=== PATIENT | male | born 1940 | race Caucasian/White ===

== ENCOUNTER → 2016-12-31 | Outpatient (CLI) | payer MEDICARE, BC ==
[2015-09-02 20:45] VITALS: BP 128/58
--- NOTE | 2016-12-31 09:56 | RAD ---
Right neck ultrasound, 12/31/2016: History: Right lump The area of clinical concern in the region of the angle of the mandible on the right was carefully scanned. A structure which appears to represent the right parotid gland is evident at this level. It measures 5.4 x 4.5 x 1.5 cm compared to measurements of 4.2 x 2.5 x 1.6 cm on the left. Its echo pattern is mildly heterogeneous with increased vascularity compared to the left side. No discrete parotid mass is identified. There are several small lymph nodes in this region which are not enlarged. IMPRESSION: Mildly enlarged, mildly heterogeneous right parotid gland demonstrating increased vascularity compared to the left. An inflammatory process is likely. Clinical surveillance is suggested and if clinical concern persists, CT scanning is suggested for further evaluation.
== END | disposition home or self-care (01) ==
LOC: US 08:04
PROVIDERS: ATTEND Physician Assistant Medical
DX: K11.1 Hypertrophy of salivary gland (principal); M27.9 Disease of jaws, unspecified
CPT/HCPCS: 76536

== ENCOUNTER → 2017-01-20 | Outpatient (CLI) | payer MEDICARE, BC ==
[2015-09-02 20:45] VITALS: BP 128/58
[~2017-01-20] MED LIST: IOHEXOL 300 MG/ML 75 ML VIAL. IV ONE
--- NOTE | 2017-01-20 10:17 | RAD ---
Examination: CT soft tissue neck with IV contrast History: History of enlarged right parotid with intermittent swelling Comparison: None available Technique: Axial CT images of the soft tissue neck were performed with IV contrast. Coronal and sagittal reformats are performed. PQRS Compliance Statement: One or more of the following individualized dose reduction techniques were utilized for this examination: 1. Automated exposure control 2. Adjustment of the mA and/or kV according to patient size 3. Use of iterative reconstruction technique. Findings: The visualized intracranial portion grossly appears unremarkable. The bilateral general activities therapist spaces, parapharyngeal spaces, grossly appears unremarkable. Moderate atherosclerotic calcifications identified in the bilateral carotid bulbs and proximal internal carotid arteries. No evidence of obvious parotid mass identified. The right parotid gland is somewhat mildly prominent compared to the left with mildly increased density throughout the right parotid gland could be in part due to streak dental artifact. No evidence of inflammatory fat stranding about the right parotid gland. No radiologically significant enlarged cervical lymphadenopathy visualized. The visualized thyroid gland appears homogenous. The visualized vocal cords, vallecula, left piriform sinus grossly appears unremarkable. There is mild asymmetry of the right piriform sinus. The apical lungs are clear. Moderate degenerative changes cervical spine. The mastoid air cells are clear. Impression: 1. The right parotid gland is somewhat mildly prominent compared to the left with mildly increased density throughout the right parotid gland could be in part due to streak dental artifact. No evidence of inflammatory fat stranding about the right parotid gland or mass identified in the right parotid gland. 2. Mild asymmetry of the right deforms sinus, nonspecific.
== END | disposition home or self-care (01) ==
LOC: CT 08:02
PROVIDERS: ATTEND Physician Assistant Medical
DX: K11.1 Hypertrophy of salivary gland (principal); I70.0 Atherosclerosis of aorta
CPT/HCPCS: 70491; Q9967

== ENCOUNTER → 2017-06-03 | Outpatient (CLI) | payer MEDICARE, BC ==
[2015-09-02 20:45] VITALS: BP 128/58
--- NOTE | 2017-06-03 11:52 | CARD ---
MR#: [id number] Date of Study: 06/03/2017 Ordering Physician: KACY MNACILLA, Referring Physician: KACY MANCILLA Tech: Liliya Aguirre RDCS APPROVED REPORT EXAM: Two-dimensional and M-mode echocardiogram with Doppler and color Doppler. Other Information Quality : Good INDICATION Cardiac Disease: CAD Surgery/Intervention CABD DIMENSIONS Left Atrium(2D)4.1 (1.6-4.0cm)IVSd1.0 (0.7-1.1cm) Aortic Root(2D)3.5 (2.0-3.7cm)LVDd4.7 (3.9-5.9cm) LVOT Diameter2.3 (1.8-2.4cm)PWd1.0 (0.7-1.1cm) LVDs3.4 (2.5-4.0cm)FS (%) 27.6 % SV54.4 mlLVEF(%)53.5 (>50%) Aortic Valve AoV Peak Santiago.108.9cm/sAoV VTI18.9cm AO Peak GR.4.7mmHgLVOT Peak Santiago.88.8cm/s LVOT VTI 16.35cmAO Mean GR.3mmHg ERLIN (VMAX)3.32dr4NSD (VTI)3.60cm2 Mitral Valve MV E Rxyqfpue75.4cm/sMV DECEL UOEI147bw MV A Qulxzjre798.9cm/sE/A Ratio0.6 Tricuspid Valve TR P. Awfxcynd670ag/sRAP RCFTQVAR6jfQw TR Peak Gr.91tcVkCWOA39xkVt Pulmonary Vein S1 Qieuujjj41.8cm/sD2 Yqymqyuz45.3cm/s LEFT VENTRICLE The left ventricle is normal size. There is normal left ventricular wall thickness. Left ventricle sy stolic function is normal. The Ejection Fraction is 50-55%. There is normal LV segmental wall motion. Transmitral Doppler flow pattern is Grade I-abnormal relaxation pattern. RIGHT VENTRICLE The right ventricle is normal size. The right ventricular systolic function is normal. ATRIA The left atrium is mildly dilated. The right atrium size is normal. The interatrial septum is intact with no evidence for an atrial septal defect or patent foramen ovale as noted on 2-D or Doppler imagi ng. AORTIC VALVE The aortic valve is calcified but opens well. Doppler and Color Flow revealed trace aortic regurgitat ion. There is no significant aortic valvular stenosis. MITRAL VALVE The mitral valve is calcified but opens well. There is no evidence of mitral valve prolapse. There is no mitral valve stenosis. Doppler and Color-flow revealed trace mitral regurgitation. TRICUSPID VALVE The tricuspid valve is normal in structure and function. Doppler and Color Flow revealed trace tricus pid regurgitation. The PA pressure was estimated at 26 mmHg. There is no tricuspid valve stenosis. PULMONIC VALVE The pulmonary valve is normal in structure and function. Doppler and Color Flow revealed trace to mil d pulmonic valvular regurgitation. There is no pulmonic valvular stenosis. GREAT VESSELS The aortic root is normal in size. The ascending aorta is normal in size. The IVC is normal in size a nd collapses >50% with inspiration. PERICARDIAL EFFUSION There is no evidence of significant pericardial effusion. Critical Notification Critical Value: No <Conclusion> Left ventricle systolic function is normal. The Ejection Fraction is 50-55%. There is normal LV segmental wall motion. Transmitral Doppler flow pattern is Grade I-abnormal relaxation pattern. Trace mitral regurgitation. Trace tricuspid regurgitation. The PA pressure was estimated at 26 mmHg. There is no evidence of significant pericardial effusion. Signed by : Kacy Mancilla, Electronically Approved : 06/03/2017 11:52:38
--- NOTE | 2017-06-03 15:56 | RAD ---
MR#: [id number] Date of Study: 06/03/2017 Ordering Physician: KACY MANCILLA, Referring Physician: KACY MANCILLA, Tech: Ladonna Grey RDMS, RVT, RTR APPROVED REPORT Patient Location : OUT-PATIENT Indications Varicose Veins Grayscale images of the bilateral saphenofemoral junctions and the greater and lesser saphenous veins do not reveal any evidence of thrombus on limited imaging. Spectral waveforms and color Doppler do not reveal any significant evidence of reflux in the right an d left great saphenous veins. The bilateral lesser saphenous veins do not show any evidence of reflux . The proximal left great saphenous vein is previously been harvested for bypass surgery. Critical Notification Critical Value: No <Conclusion> 1. Negative for reflux in the bilateral GSV and LSV Signed by : Thong Gray, Electronically Approved : 06/03/2017 15:56:03
== END | disposition home or self-care (01) ==
LOC: ECHO 08:02
PROVIDERS: ATTEND Internal Medicine Cardiovascular Disease
DX: I25.10 Atherosclerotic heart disease of native coronary artery without angina pectoris (principal); I83.93 Asymptomatic varicose veins of bilateral lower extremities; I08.1 Rheumatic disorders of both mitral and tricuspid valves; Z87.891 Personal history of nicotine dependence
CPT/HCPCS: 93306; 93970

== ENCOUNTER → 2017-06-20 | Outpatient (CLI) | payer MEDICARE, BC ==
[2015-09-02 20:45] VITALS: BP 128/58
--- NOTE | 2017-06-21 22:24 | RAD ---
MR#: [id number] Date of Study: 06/20/2017 Ordering Physician: KACY MANCILLA, Referring Physician: KACY MANCILLA, Tech: Judy Badillo RDMS, KAET, RTR APPROVED REPORT Patient Location: OUT-PATIENT Indications Claudication: Bilateral Leg pain. Left Calf pain per patient upon walking. Risk Factors Grayscale images of the bilateral common femoral, superficial femoral and popliteal vessels reveals m ild to moderate athero-'s chronic plaque without any focal high-grade stenosis. Spectral waveforms th roughout the arterial tree of the lower extremities are mostly biphasic and triphasic. No focal steno sis is identified. There is three-vessel runoff in the bilateral lower extremities. VELOCITY AND DOPPLER WAVEFORM ANALYSIS RIGHT cm/secWaveformSeverity LEFT cm/secWaveform Severity pCFA 113.8pCFA 104.1 Prof Fem Art. 86.8Prof Fem Art. 61.7 Fem Art Prox. 68.1Fem Art Prox. 77.8 Fem Art Mid. 85.5Fem Art Mid. 77.8 Fem Art Dist. 112.8Fem Art Dist. 65.6 Pop Art(AK) 61.1Pop Art(AK) 96.2 SUBMARINE OPERATOR Dist. 75.2PTA Dist. 73.7 Per Art Prox. 70.1Per Art Prox. 69.4 SHUN Prox. 63.0ATA Prox. 68.7 DPA 92.5DPA 55 Critical Notification Critical Value: No <Conclusion> 1. No evidence of focal disease in the bilateral lower extremities with widely patent 3 vessel runoff below the knee. Signed by : Thong Gray, Electronically Approved : 06/21/2017 22:23:57
== END | disposition home or self-care (01) ==
LOC: US 08:54
PROVIDERS: ATTEND Internal Medicine Cardiovascular Disease
DX: I73.9 Peripheral vascular disease, unspecified (principal); M79.605 Pain in left leg; M79.604 Pain in right leg
CPT/HCPCS: 93925

== ENCOUNTER → 2017-10-02 | Outpatient (CLI) | payer MEDICARE, BC ==
[2015-09-02 20:45] VITALS: BP 128/58
[~2017-10-02] MED LIST changes: +IOHEXOL 240 MG/ML 50ML VIAL. ONE
[2017-10-02 10:56] LABS: CREATININE 1.1 mg/dL (0.7-1.3); GFR 64.7
--- NOTE | 2017-10-02 17:11 | RAD ---
Examination: CT of the abdomen pelvis with oral and IV contrast HISTORY: History of left-sided abdominal pain COMPARISON: None available TECHNIQUE: Axial CT images of the abdomen is performed with oral and IV contrast. Coronal and sagittal reformats are performed Exposure: One or more of the following individualized dose reduction techniques were utilized for this examination: 1. Automated exposure control 2. Adjustment of the mA and/or kV according to patient size 3. Use of iterative reconstruction technique FINDINGS: Mild bibasilar lung atelectasis. No evidence of free air identified in the abdomen There is mild decreased attenuation noted in the liver. The gallbladder is mildly distended The visualized spleen, adrenals grossly appears unremarkable The pancreas is atrophic with multiple calcifications identified particularly in the pancreatic head and in the pancreatic body. The pancreatic duct is dilated measuring up to 7 mm in diameter The small bowel is nondilated. Moderate amount of feces identified in the colon throughout. Urinary bladder is mildly distended The bilateral kidneys enhance symmetrically. Multiple cystic structures identified in the right and left kidneys with the largest measuring 4.5 cm in the right kidney and measuring 8 Hounsfield units likely cysts. Moderate degenerative changes lumbar spine. IMPRESSION: 1. Atrophic appearing pancreas with multiple calcifications and dilated appearing pancreatic duct could be chronic pancreatitis or pancreatic ductal pathology. There is appears similar to prior exam however comparison is difficult as the prior exam was without contrast. If this was not evaluated prior MRI abdomen with MRCP would be useful for further evaluation. 2. Bilateral renal cysts. 3. Mild hepatic steatosis. 4. Moderate amount of stool identified in the colon likely constipation.. Electronically signed by: Clarence Arroyo MD (10/02/2017 5:08 PM) [id number]
== END | disposition home or self-care (01) ==
LOC: CT 09:52
PROVIDERS: ATTEND Internal Medicine Gastroenterology
DX: N28.1 Cyst of kidney, acquired (principal); K76.0 Fatty (change of) liver, not elsewhere classified; I25.10 Atherosclerotic heart disease of native coronary artery without angina pectoris; E11.9 Type 2 diabetes mellitus without complications; I10 Essential (primary) hypertension; Z87.891 Personal history of nicotine dependence
CPT/HCPCS: 36415; 74177; 82565; 84520; Q9966; Q9967

== ENCOUNTER 2018-03-06 12:46 | Emergency (ER) | payer MEDICARE, BC ==
[~2018-03-06] VITALS: Ht 177.8 cm; Wt 69.3 kg
--- NOTE | 2018-03-06 13:11 | PHYS DOC ---
Past History Past Medical History: CAD, CHF, Diabetes, Other Past Surgical History: Coronary Bypass Surgery, Other Smoking: Non-smoker Alcohol Use: None Drug Use: None Adult General Chief Complaint Chief Complaint: MECHANICAL FALL HPI HPI Patient is a 77 year old male who presents with complaining of a fall and pain in right hip area. Patient states he had an accidental fall and over ago while walking stairs and missed one step and landed on right hip. Patient denies loss of consciousness and other injuries. Patient states he used his 's walker to get to the car and come to the hospital. Patient states he has severe pain in right hip area with bearing weight and mild pain without bearing weight. Patient complaining of mild headache that started at his arrival to emergency room. Patient denies focal neuro deficit, nausea and vomiting, chest pain and shortness of breath. Review of Systems Review of Systems Constitutional: Denies fever or chills [] Eyes: Denies change in visual acuity, redness, or eye pain [] HENT: Denies nasal congestion or sore throat [] Respiratory: Denies cough or shortness of breath [] Cardiovascular: No additional information not addressed in HPI [] GI: Denies abdominal pain, nausea, vomiting, bloody stools or diarrhea [] : Denies dysuria or hematuria [] Musculoskeletal: Denies back pain, reports joint pain [] Integument: Denies rash or skin lesions [] Neurologic: Reports headache, denies focal weakness or sensory changes [] Endocrine: Denies polyuria or polydipsia [] All other systems were reviewed and found to be within normal limits, except as documented in this note. Current Medications Current Medications Current Medications Medications (Trade) Dose Ordered Sig/Rolo Start Time Stop Time Status Last Admin Dose Admin Fentanyl Citrate (Fentanyl 2ml Vial) 50 mcg 1X ONCE 03/06/18 13:00 03/06/18 13:01 UNV Allergies Allergies Allergies Coded Allergies Type Severity Reaction Last Updated Verified No Known Drug Allergies 05/10/15 No Physical Exam Physical Exam Constitutional: Well developed, well nourished, mild distress, non-toxic appearance. [] HENT: Normocephalic, atraumatic, oropharynx moist, no oral exudates, nose normal. [] Eyes: PERRLA, EOMI, conjunctiva normal, no discharge. [] Neck: Normal range of motion, no tenderness, supple, no stridor. [] Cardiovascular:Heart rate regular rhythm, no murmur [] Lungs & Thorax: Bilateral breath sounds clear to auscultation [] Abdomen: Bowel sounds normal, soft, no tenderness, no masses, no pulsatile masses. [] Skin: Warm, dry, no erythema, no rash. [] Back: No tenderness, no CVA tenderness. [] Extremities: Right hip with limited range of motion and contusion of lateral side of hip, no cyanosis, no clubbing, no edema. [] Neurologic: Alert and oriented X 3, normal motor function, normal sensory function, no focal deficits noted. [] Psychologic: Affect normal, judgement normal, mood normal. [] Current Patient Data Vital Signs Vital Signs Date Time Temp Pulse Resp B/P (MAP) Pulse Ox O2 Delivery O2 Flow Rate FiO2 03/06/18 12:46 98.0 92 16 96 Room Air EKG EKG [] Radiology/Procedures Radiology/[place] [address] IMAGING REPORT Signed PATIENT: OSMANI CROW ACCOUNT: [id number] : 1940 LOCATION: ER AGE: 77 SEX: M EXAM STATUS: REG ER ORD. PHYSICIAN: DORA BARRON MD REASON: FALL PROCEDURE: CHEST AP ONLY Pelvis with right hip, 3 views, 03/06/2018: HISTORY: Fall There appears to be an impacted subcapital fracture of the right femoral neck, best seen on the lateral view. There are mild degenerative changes at both hip joints. No other fracture or dislocation is identified. Extensive arterial calcifications are present. IMPRESSION: Impacted subcapital fracture of the right femoral neck. CT scanning would better define this fracture, if clinically indicated. AP chest, 03/06/2018: HISTORY: Fall There has been a previous median sternotomy. The heart size is normal. There is calcific plaquing of the aorta. No pulmonary infiltrate is seen. There is no evidence of pleural fluid or pneumothorax. IMPRESSION: No acute cardiopulmonary abnormality is detected. Electronically signed by: Miles Casillas MD (03/06/2018 1:48 PM) [facility] DICTATED AND SIGNED BY: MILES CASILLAS MD DATE: 03/06/18 1343 CC: DORA BARRON MD; DENYS THRASHER MD ~ [place] [address] IMAGING REPORT Signed PATIENT: OSMANI CROW ACCOUNT: [id number] : 1940 LOCATION: ER AGE: 77 SEX: M EXAM STATUS: REG ER ORD. PHYSICIAN: DORA BARRON MD REASON: fall PROCEDURE: CT HEAD AND CERVICAL SPINE WO CT head and cervical spine without contrast 03/06/2018 CLINICAL INDICATION: Fall COMPARISON: None. TECHNIQUE: Multiple CT images of the head and cervical spine were obtained without contrast. *One or more of the following individualized dose reduction techniques were utilized for this examination: 1. Automated exposure control. 2. Adjustment of the mA and/or kV according to patient size. 3. Use of iterative reconstruction technique. FINDINGS: Head: No acute intracranial hemorrhage or extra-axial fluid collection. No midline shift. The ventricles and subarachnoid spaces are normal in size configuration for age. No midline shift. The basal cisterns are patent. Minimal periventricular white matter low-attenuation. The visualized mastoid air cells and paranasal sinuses are well aerated. Cervical spine: No acute cervical spine fracture or traumatic malalignment. Atlantoaxial articulation is maintained. Mild atlantodens are osteoarthrosis. Mild cervical disc degeneration at C3-C4 and C5-C6 with disc space narrowing and marginal osteophyte formation. Cervical spondylosis and multilevel uncovertebral and facet hypertrophy results in neural foraminal narrowing to a mild degree bilaterally at C3-C4, moderate on the right at C4-C5, moderate on the right and severe on the left at C5-C6. Posterior disc osteophyte complex at C5-C6 results in mild spinal canal neuroforaminal narrowing. IMPRESSION: Head: 1. No acute intracranial hemorrhage. 2. Minimal nonspecific white matter disease, likely related to chronic small vessel ischemic disease. Cervical spine: 1. No acute cervical spine fracture or traumatic malalignment. 2. Cervical spondylosis resulting in multilevel neural foraminal narrowing, greatest to severe degree, on the left at C5-C6. Electronically signed by: Iglesia Lynn MD (03/06/2018 1:28 PM) [id number] DICTATED AND SIGNED BY: IGLESIA LYNN MD DATE: 03/06/18 1322 CC: DORA BARRON MD; DENYS THRASHER MD ~ Course & Med Decision Making Course & Med Decision Making Pertinent Labs and Imaging studies reviewed. (See chart for details) Evaluation of patient in ER showed 77-year-old male patient with a fall at home and injury to right hip. Patient had limited range of motion of right hip with subcapital femoral neck fracture in x-ray. Dr. Michelle warehouse operations manager orthopedic physician was informed in OR and Dr. Momin accepted transfer to [facility] at 1339. Dragon Disclaimer Dragon Disclaimer This electronic medical record was generated, in whole or in part, using a voice recognition dictation system. Departure Departure: Impression: Primary Impression: Closed subcapital fracture of neck of right femur Additional Impressions: Uncontrolled diabetes mellitus Fall at home Disposition: 02 XFER SHT-TRM HOSP ([facility]@[email or web address]) Condition: IMPROVED Referrals: DENYS THRASHER MD (PCP) Problem Qualifiers DORA BARRON MD Mar 06, 2018 13:11
--- NOTE | 2018-03-06 13:30 | RAD ---
CT head and cervical spine without contrast 03/06/2018 CLINICAL INDICATION: Fall COMPARISON: None. TECHNIQUE: Multiple CT images of the head and cervical spine were obtained without contrast. *One or more of the following individualized dose reduction techniques were utilized for this examination: 1. Automated exposure control. 2. Adjustment of the mA and/or kV according to patient size. 3. Use of iterative reconstruction technique. FINDINGS: Head: No acute intracranial hemorrhage or extra-axial fluid collection. No midline shift. The ventricles and subarachnoid spaces are normal in size configuration for age. No midline shift. The basal cisterns are patent. Minimal periventricular white matter low-attenuation. The visualized mastoid air cells and paranasal sinuses are well aerated. Cervical spine: No acute cervical spine fracture or traumatic malalignment. Atlantoaxial articulation is maintained. Mild atlantodens are osteoarthrosis. Mild cervical disc degeneration at C3-C4 and C5-C6 with disc space narrowing and marginal osteophyte formation. Cervical spondylosis and multilevel uncovertebral and facet hypertrophy results in neural foraminal narrowing to a mild degree bilaterally at C3-C4, moderate on the right at C4-C5, moderate on the right and severe on the left at C5-C6. Posterior disc osteophyte complex at C5-C6 results in mild spinal canal neuroforaminal narrowing. IMPRESSION: Head: 1. No acute intracranial hemorrhage. 2. Minimal nonspecific white matter disease, likely related to chronic small vessel ischemic disease. Cervical spine: 1. No acute cervical spine fracture or traumatic malalignment. 2. Cervical spondylosis resulting in multilevel neural foraminal narrowing, greatest to severe degree, on the left at C5-C6. Electronically signed by: Mark Lynn MD (03/06/2018 1:28 PM) [id number]
--- NOTE | 2018-03-06 13:51 | RAD ---
Pelvis with right hip, 3 views, 03/06/2018: HISTORY: Fall There appears to be an impacted subcapital fracture of the right femoral neck, best seen on the lateral view. There are mild degenerative changes at both hip joints. No other fracture or dislocation is identified. Extensive arterial calcifications are present. IMPRESSION: Impacted subcapital fracture of the right femoral neck. CT scanning would better define this fracture, if clinically indicated. AP chest, 03/06/2018: HISTORY: Fall There has been a previous median sternotomy. The heart size is normal. There is calcific plaquing of the aorta. No pulmonary infiltrate is seen. There is no evidence of pleural fluid or pneumothorax. IMPRESSION: No acute cardiopulmonary abnormality is detected. Electronically signed by: Miles Casillas MD (03/06/2018 1:48 PM) [facility]
[2018-03-06 13:55] LABS: BASO % 0 % (0-3); EOS # 0.1 x10^3/uL (0.0-0.7); EOS % 1 % (0-3); HEMOGLOBIN 12.6 g/dL (13.0-17.5); LYMPH # 0.8 x10^3/uL (1.0-4.8); LYMPH % 9 % (24-48); MEAN CORPUSCULAR HEMOGLOBIN 30 pg (25-35); MEAN CORPUSCULAR HGB CONC 33 g/dL (31-37); MEAN CORPUSCULAR VOLUME 90 fL (79-100); MONO # 0.5 x10^3/uL (0.0-1.1); MONO % 6 % (0-9); NEUT # 7.6 x10^3uL (1.8-7.7); NEUT % 84 % (31-73); PLATELET COUNT 195 x10^3/uL (140-400); RED BLOOD COUNT 4.21 x10^6/uL (4.30-5.70); RED CELL DISTRIBUTION WIDTH 14.3 % (11.5-14.5); WHITE BLOOD COUNT 9.1 x10^3/uL (4.0-11.0)
[2018-03-06 14:02] VITALS: BP 177/103
[2018-03-06 14:07] LABS: ALBUMIN 3.1 g/dL (3.4-5.0); ALBUMIN/GLOBULIN RATIO 0.9 (1.0-1.7); CALCIUM 8.7 mg/dL (8.5-10.1); GFR 72.1; TOTAL BILIRUBIN 0.3 mg/dL (0.2-1.0); TOTAL PROTEIN 6.4 g/dL (6.4-8.2)
[2018-03-06 14:36] LABS: BACTERIA,URINE 0 /HPF (0-FEW); BILIRUBIN,URINE NEG (NEG); CLARITY,URINE CLEAR; COLOR,URINE YELLOW; GLUCOSE,URINE 500 mg/dL (NEG); NITRITE,URINE NEG (NEG); RBC,URINE RARE /HPF (0-2); SQUAMOUS EPITHELIAL CELL,UR OCC /LPF; UROBILINOGEN,URINE 0.2 mg/dL (0.2 mg/dL); WBC,URINE RARE /HPF (0-4)
== END 2018-03-06 14:42 | disposition short-term general hospital (02) ==
LOC: ER 12:46
DX: S72.011A Unspecified intracapsular fracture of right femur, initial encounter for closed fracture (principal); E11.65 Type 2 diabetes mellitus with hyperglycemia; M47.892 Other spondylosis, cervical region; I25.810 Atherosclerosis of coronary artery bypass graft(s) without angina pectoris; I50.9 Heart failure, unspecified; W10.8XXA Fall (on) (from) other stairs and steps, initial encounter; Y93.01 Activity, walking, marching and hiking; Y92.098 Other place in other non-institutional residence as the place of occurrence of the external cause; Y99.8 Other external cause status
CPT/HCPCS: 36415; 70450; 71045; 72125; 73502; 80053; 81001; 85025; 85610; 96374; 99285; J3010

== ENCOUNTER 2018-03-12 15:37 | Inpatient (IN) | payer MEDICARE, BC ==
[~2018-03-12] VITALS: Ht 175.3 cm; Wt 71.7 kg
[2018-03-12 16:09] LABS: BASO % 0 % (0-3); EOS # 0.2 x10^3/uL (0.0-0.7); EOS % 3 % (0-3); HEMATOCRIT 29.2 % (39.0-53.0); HEMOGLOBIN 9.8 g/dL (13.0-17.5); LYMPH # 0.9 x10^3/uL (1.0-4.8); LYMPH % 13 % (24-48); MEAN CORPUSCULAR HEMOGLOBIN 30 pg (25-35); MEAN CORPUSCULAR HGB CONC 34 g/dL (31-37); MEAN CORPUSCULAR VOLUME 90 fL (79-100); MONO # 0.7 x10^3/uL (0.0-1.1); MONO % 9 % (0-9); NEUT # 5.2 x10^3uL (1.8-7.7); NEUT % 75 % (31-73); PLATELET COUNT 302 x10^3/uL (140-400); RED BLOOD COUNT 3.24 x10^6/uL (4.30-5.70); RED CELL DISTRIBUTION WIDTH 13.9 % (11.5-14.5); WHITE BLOOD COUNT 6.9 x10^3/uL (4.0-11.0)
[2018-03-12 16:27] LABS: ALBUMIN 2.5 g/dL (3.4-5.0); ALBUMIN/GLOBULIN RATIO 0.6 (1.0-1.7); CALCIUM 8.2 mg/dL (8.5-10.1); CREATININE 1.1 mg/dL (0.7-1.3); GFR 64.6; MAGNESIUM 1.9 mg/dL (1.8-2.4); POTASSIUM 3.4 mmol/L (3.5-5.1); TOTAL BILIRUBIN 0.7 mg/dL (0.2-1.0); TOTAL PROTEIN 6.4 g/dL (6.4-8.2)
--- NOTE | 2018-03-12 16:30 | RAD ---
History: Right hip pain, recent surgery. Comparison: March 07, 2018. Findings: AP view of the pelvis. AP and frog-leg views of the right hip. Right hip hemiarthroplasty is again seen. No acute fracture or dislocation is identified. No hardware complication is identified. Mild left hip degeneration is seen. Arterial calcifications are present. Impression: Right hip hemiarthroplasty. No acute abnormality identified. Electronically signed by: Peter Abebe MD (03/12/2018 4:26 PM) [place] [id number]
--- NOTE | 2018-03-12 16:30 | RAD ---
Single view of the chest. 03/12/2018 4:10 PM Indication: CHEST PAIN, RECENT HIP SURGERY Comparison: Chest radiograph March 06, 2018 Findings: There is no focal consolidation. There is no pleural effusion or pneumothorax. Prior median sternotomy again noted. Heart size remains normal. No acute osseous abnormalities are seen. Impression: No evidence of acute cardiopulmonary process. Electronically signed by: Tino Oro MD (03/12/2018 4:27 PM) [id number]
--- NOTE | 2018-03-12 16:38 | PHYS DOC ---
Past History Past Medical History: CAD, CHF, Diabetes, Other Past Surgical History: Coronary Bypass Surgery, Other Smoking: Non-smoker Alcohol Use: None Drug Use: None Adult General Chief Complaint Chief Complaint: LOWEREXTREMITY INJURY [facility] HPI Patient is a 77 year old male with history of right hip replacement on March 06 who brought in by EMS because of right hip pain and chest pain. Patient had right hip physical therapist this morning and complaining of pain in his hip that could be resulting injury or without injury as a constant pain that getting force with movement. Patient also complaining of one episode of left sided chest pain as a sharp pain with radiation to his back that lasted about 5 minutes and was rated as 7/10. Patient complaining of shortness of breath with his chest pain. Patient currently taking Lovenox. Review of Systems Review of Systems Constitutional: Denies fever or chills [] Eyes: Denies change in visual acuity, redness, or eye pain [] HENT: Denies nasal congestion or sore throat [] Respiratory: Denies cough or shortness of breath [] Cardiovascular: No additional information not addressed in HPI [] GI: Denies abdominal pain, nausea, vomiting, bloody stools or diarrhea [] : Denies dysuria or hematuria [] Musculoskeletal: Denies back pain, reports joint pain [] Integument: Denies rash or skin lesions [] Neurologic: Denies headache, focal weakness or sensory changes [] Endocrine: Denies polyuria or polydipsia [] All other systems were reviewed and found to be within normal limits, except as documented in this note. Current Medications Current Medications Current Medications Medications (Trade) Dose Ordered Sig/[facility] Start Time Stop Time Status Last Admin Dose Admin Fentanyl Citrate (Fentanyl 2ml Vial) 50 mcg 1X ONCE 03/12/18 16:00 03/12/18 16:01 DC 03/12/18 16:15 50 MCG Allergies Allergies Allergies Coded Allergies Type Severity Reaction Last Updated Verified No Known Drug Allergies 05/10/15 No Physical Exam Physical Exam Constitutional: Well developed, well nourished, mild distress, non-toxic appearance. [] HENT: Normocephalic, atraumatic Eyes: PERRLA, EOMI, conjunctiva normal, no discharge. [] Neck: Normal range of motion, no tenderness, supple, no stridor. [] Cardiovascular:Heart rate regular rhythm, no murmur [] Lungs & Thorax: Bilateral breath sounds clear to auscultation [] Abdomen: Bowel sounds normal, soft, no tenderness, no masses, no pulsatile masses. [] Skin: Warm, dry, no erythema, no rash. [] Back: No tenderness, no CVA tenderness. [] Extremities: Right hip with painful range of motion, no cyanosis, no clubbing, ROM intact, no edema. [] Neurologic: Alert and oriented X 3, normal motor function, normal sensory function, no focal deficits noted. [] Psychologic: Affect normal, judgement normal, mood normal. [] Current Patient Data Vital Signs Vital Signs Date Time Temp Pulse Resp B/P (MAP) Pulse Ox O2 Delivery O2 Flow Rate FiO2 03/12/18 16:15 18 98 Room Air 03/12/18 15:52 98.0 107 Lab Results Laboratory Tests Test 03/12/18 15:38 White Blood Count 6.9 x10^3/uL (4.0-11.0) Red Blood Count 3.24 x10^6/uL (4.30-5.70) L Hemoglobin 9.8 g/dL (13.0-17.5) L Hematocrit 29.2 % (39.0-53.0) L Mean Corpuscular Volume 90 fL (79-100) Mean Corpuscular Hemoglobin 30 pg (25-35) Mean Corpuscular Hemoglobin Concent 34 g/dL (31-37) Red Cell Distribution Width 13.9 % (11.5-14.5) Platelet Count 302 x10^3/uL (140-400) Neutrophils (%) (Auto) 75 % (31-73) H Lymphocytes (%) (Auto) 13 % (24-48) L Monocytes (%) (Auto) 9 % (0-9) Eosinophils (%) (Auto) 3 % (0-3) Basophils (%) (Auto) 0 % (0-3) Neutrophils # (Auto) 5.2 x10^3uL (1.8-7.7) Lymphocytes # (Auto) 0.9 x10^3/uL (1.0-4.8) L Monocytes # (Auto) 0.7 x10^3/uL (0.0-1.1) Eosinophils # (Auto) 0.2 x10^3/uL (0.0-0.7) Basophils # (Auto) 0.0 x10^3/uL (0.0-0.2) Sodium Level 133 mmol/L (136-145) L Potassium Level 3.4 mmol/L (3.5-5.1) L Chloride Level 99 mmol/L (98-107) Carbon Dioxide Level 25 mmol/L (21-32) Anion Gap 9 (6-14) Blood Urea Nitrogen 22 mg/dL (8-26) Creatinine 1.1 mg/dL (0.7-1.3) Estimated GFR (Cockcroft-Gault) 64.6 BUN/Creatinine Ratio 20 (6-20) Glucose Level 287 mg/dL (70-99) H Calcium Level 8.2 mg/dL (8.5-10.1) L Magnesium Level 1.9 mg/dL (1.8-2.4) Total Bilirubin 0.7 mg/dL (0.2-1.0) Aspartate Amino Transferase (AST) 24 U/L (15-37) Alanine Aminotransferase (ALT) 24 U/L (16-63) Alkaline Phosphatase 185 U/L (46-116) H Creatine Kinase 90 U/L (39-308) Troponin I Quantitative 0.057 ng/mL (0-0.055) H RH-Okj-Z-Type Natriuretic Peptide 371 pg/mL (0-449) Total Protein 6.4 g/dL (6.4-8.2) Albumin 2.5 g/dL (3.4-5.0) L Albumin/Globulin Ratio 0.6 (1.0-1.7) L EKG EKG EKG interpreted by me. EKG at 1552 showed normal sinus rhythm at rate of 91, no acute ST and T-wave abnormalities.[] Radiology/Procedures Radiology/Procedures [address] [address] IMAGING REPORT Signed PATIENT: OMSANI CROW ACCOUNT: [id number] : 1940 LOCATION: ER AGE: 77 SEX: M EXAM STATUS: REG ER ORD. PHYSICIAN: DORA BARRON MD REASON: chest pain PROCEDURE: PORTABLE CHEST 1V Single view of the chest. 03/12/2018 4:10 PM Indication: CHEST PAIN, RECENT HIP SURGERY Comparison: Chest radiograph March 06, 2018 Findings: There is no focal consolidation. There is no pleural effusion or pneumothorax. Prior median sternotomy again noted. Heart size remains normal. No acute osseous abnormalities are seen. Impression: No evidence of acute cardiopulmonary process. Electronically signed by: Tino Ross MD (03/12/2018 4:27 PM) [facility] DICTATED AND SIGNED BY: TINO ROSS MD DATE: 03/12/181625 CC: DORA BARRON MD; DENYS THRASHER MD ~ [place] [address] IMAGING REPORT Signed PATIENT: OSMANI CROW ACCOUNT: [id number] : 1940 LOCATION: ER AGE: 77 SEX: M EXAM STATUS: REG ER ORD. PHYSICIAN: DORA BARRON MD REASON: chest pain PROCEDURE: HIP RIGHT 2V WITH PELVIS History: Right hip pain, recent surgery. Comparison: March 07, 2018. Findings: AP view of the pelvis. AP and frog-leg views of the right hip. Right hip hemiarthroplasty is again seen. No acute fracture or dislocation is identified. No hardware complication is identified. Mild left hip degeneration is seen. Arterial calcifications are present. Impression: Right hip hemiarthroplasty. No acute abnormality identified. Electronically signed by: Peter Matias MD (03/12/2018 4:26 PM) [facility] DICTATED AND SIGNED BY: PETER MATIAS MD DATE: 03/12/181623 CC: DORA BARRON MD; DENYS THRASHRE MD ~ Course & Med Decision Making Course & Med Decision Making Pertinent Labs and Imaging studies reviewed. (See chart for details) Evaluation of patient in ER showed 77-year-old male patient with history of recent right hip replacement brought in by EMS because of right hip pain and chest pain. Patient had blood pressure of 139 at arrival to ER with heart rate of 100 without fever or confusion. Patient had marked elevation of troponin and d-dimer negative CT of chest for PE. Dr. Guzman on-call dial painter was informed about the test results and he did not have concern for cardiac event. Dr Allen accepted admission at 1742. Dragon Disclaimer Dragon Disclaimer This electronic medical record was generated, in whole or in part, using a voice recognition dictation system. Critical Care Time Critical care time was 70 minutes exclusive of procedures. Departure Departure: Impression: Primary Impression: Acute chest pain Additional Impressions: Elevated troponin I level Right hip pain Anemia Uncontrolled diabetes mellitus Disposition: 09 ADMITTED INPATIENT (at 1744) Admitting Physician: Stephane Allen (accepted admission at 1742) Condition: IMPROVED Referrals: DENYS THRASHER MD (PCP) Problem Qualifiers DORA BARRON MD Mar 12, 2018 16:38
[2018-03-12] MEDS ORDERED: ASPIRIN 81 MG TAB.CHEW PO ONE (17:00)
[2018-03-12] MEDS ORDERED: IOHEXOL 300 MG/ML 75 ML VIAL. IV ONE (17:00)
--- NOTE | 2018-03-12 17:06 | EKG ---
[address] [address] Test Date: 2018-03-12 Test Time: 15:52:03 Pat Name: OSMANI CROW Department: Room: Gender: M [employer]: : 1940 Requested By: DORA BARRON Order Number: [id number] Reading MD: Trevor Guzman Measurements Intervals [place] Rate: 91 P: 34 [place]: 148 QRS: 45 QRSD: 88 T: 32 QT: 364 QTc: 449 Interpretive Statements SINUS RHYTHM NORMAL ECG Electronically Signed On 03-13-2018 14:30:27 [employer] REVIEWER by Trevor Guzman
--- NOTE | 2018-03-12 17:35 | RAD ---
CT ANGIOGRAPHY CHEST dated 03/12/2018 4:39 PM Indication:., Painchest pain and shortness of breath after right hip surgery, OMNI 300, 75 ml . Comparison: No comparison is available. Technique: Contiguous axial imaging the chest performed following the intravenous administration of 75 cc Omnipaque 300. Study was performed as dedicated PE protocol with thin cut coronal MIPS 3-D reconstruction One or more of the following individualized dose reduction techniques were utilized for this examination: 1. Automated exposure control 2. Adjustment of the mA and/or kV according to patient size 3. Use of iterative reconstruction technique Findings: Contrast bolus is adequate. No evidence of central, lobar or segmental pulmonary embolus. Subsegmental branches are not well evaluated based on technique. Heart size within normal limits. No pericardial effusion. The patient is status post median sternotomy and CABG procedure. Mild ectasia of the ascending thoracic aorta measuring 3.7 cm transverse. No mediastinal, hilar or axillary lymphadenopathy. Thyroid gland unremarkable. Central airways are patent. Linear bands of increased density at the dependent lung bases, likely scar or atelectasis. No consolidation or pleural effusion. There are a few scattered areas of nonspecific pleural thickening. No pneumothorax. Mild basilar bronchiectasis. Limited images of the upper abdomen show calcific changes of the pancreatic head and tail with mild hazy increased attenuation in the peripancreatic fat. There is a low-density focus at the upper pole right kidney that measures 4.9 cm Hounsfield values of 3, likely cyst. No acute bony abnormality. Multilevel spondylosis. IMPRESSION: 1. No evidence of central, lobar or segmental pulmonary embolus. 2. Bibasilar scar or atelectasis with mild basilar bronchiectasis. 3. Status post CABG procedure. There is mild ectasia of the ascending thoracic aorta. 4. Mild hazy increased density of the peripancreatic fat with scattered pancreatic calcifications. Findings suggest acute on chronic pancreatitis. Correlate with laboratory findings. Electronically signed by: Peter Hough MD (03/12/2018 5:31 PM) [facility]
[2018-03-12 20:25] VITALS: BP 134/77
[2018-03-12] MEDS ORDERED: CLOP75TA PO (23:09)
[2018-03-12] MEDS ORDERED: ACET325T9 PO (23:09)
[2018-03-12] MEDS ORDERED: SENN1TAB21 PO (23:09)
[2018-03-12] MEDS ORDERED: RABE20TA26 PO (23:09)
[2018-03-12] MEDS ORDERED: PIOG15TA63 PO (23:09)
[2018-03-12] MEDS ORDERED: LIPA1CAP8 PO ×2 (23:09)
[2018-03-12] MEDS ORDERED: POLY17PO5 PO (23:09)
[2018-03-12] MEDS ORDERED: LISI10TA2 PO (23:09)
[2018-03-12] MEDS ORDERED: INSU100I17 SQ (23:09)
[2018-03-12] MEDS ORDERED: TRAM50TA PO (23:09)
[2018-03-12] MEDS ORDERED: ASPI-630 PO (23:09)
[2018-03-12] MEDS ORDERED: INSU100I13 SQ (23:09)
[2018-03-12] MEDS ORDERED: ATOR20TA58 PO (23:09)
[2018-03-12] MEDS ORDERED: OMEG-33 PO (23:09)
[2018-03-12] MEDS ORDERED: MULT1TAB52 PO (23:09)
[2018-03-12] MEDS ORDERED: ALFU10TA3 PO (23:09)
[2018-03-12] MEDS ORDERED: ACETAMINOPHEN 325 MG TABLET PO PRN (23:30)
[2018-03-13 06:07] VITALS: BP 150/82
[2018-03-13] MEDS: PANTOPRAZOLE 40 MG TABLET. PO SCH (08:49)
[2018-03-13] MEDS: SENNOSIDES/DOCUSATE 8.6/50MG TABLET. PO SCH (08:49)
[2018-03-13] MEDS: PIOGLITAZONE 15 MG TABLET. PO SCH (08:49)
[2018-03-13] MEDS: TAMSULOSIN 0.4 MG CAP.ER.24H. PO SCH (08:49)
[2018-03-13] MEDS: POLYETHYLENE GLYCOL 3350 17 GM PACKET. PO SCH (08:49)
[2018-03-13] MEDS: OMEGA-3 FATTY ACIDS/FISH OIL 1,000 MG CAPSULE. PO SCH (08:49)
[2018-03-13] MEDS: ASPIRIN 81 MG TAB.CHEW PO SCH (08:50)
[2018-03-13] MEDS: traMADol 50 MG TABLET PO SCH (08:50)
[2018-03-13] MEDS: CLOPIDOGREL BISULFATE 75 MG TABLET PO SCH (08:50)
[2018-03-13] MEDS: MULTIVITAMIN with MINERAL TABLET. PO SCH (08:50)
[2018-03-13] MEDS: LISINOPRIL 10 MG TABLET PO SCH (08:50)
--- NOTE | 2018-03-13 09:23 | PDOC2 ---
CONSULT Date of Admission DATE: 03/13/18 TIME: 09:15 Reason for Consult: chest pain History of Present Illness Mr Subramanian is a 77 year old male who normally follows with Dr Guzman who presented from rehab with complaints of chest pain. He suffered a fall at home on the stairs last week with subsequent hip fracture and underwent ORIF on . He was doing physical therapy yesterday morning on a cycling machine when he began to have increased, constant pain in the hip as well as chest pain, radiating to the back with associated dyspnea. The pain lasted about 5 minutes and was rated as 7/10 and resolved spontaneously. He is currently pain free, denies dyspnea or congestive symptoms. He continues to have pain in surgical hip with movement but is able to get up with PT and ambulate with a walker and minimal to no assistance. He denies further chest pain since admission. He has known triple vessel coronary disease with bypass. His most recent cath revealed totally occluded SVG to RCA and significant occlusion at the ostium of MYLES to LAD. LAD and RCA were successfully stented. He had an MPI following that in 2016 which revealed a fixed anterior defect with surjit infarct ischemia. His most recent echo revealed normal LV function and wall motion. Past Medical History Left heart cath 08/15/2014 severe [place] 3 vessel s/p CABG occluded SVG to RCA 80% ostial MYLES PCI/stent to RCA PCI/ stent to LAD MPI 10/10/15 fixed anterior defect with minimal surjit infarct reversibility Echo 06/03/2017 LVEF 50-55% normal wall motion grade 1 diastolic dysfunction trace MR and TR PAS 26 mmHg Cardiovascular: AFIB, CAD, HTN, SD, hyperipidemia GI: Constipation, GERD, Other (pancreatitis, pancreatic pseudocyst) Heme/Onc: Anemia NOS Musculoskeletal: Other (degenerative joint disease and sciatica) ENT: Other (hearing loss) Renal/: Benign prostatic enlarg. Endocrine: Diabetes, Hypothyroidism Past Surgical History ERCP Past Surgical History: CABG, Other (ORIF right hip) Family History: Cancer, Heart Disease Social History non smoker, no significant ETOH, no illicit drugs Current Medications Home Cardiac medications: Plavix 75mg asa 81 mg simvastatin 20 mg lisinopril 10 mg Current Medications Fentanyl Citrate (Fentanyl 2ml Vial) 50 mcg 1X ONCE IV Last administered on at 16:15; Start 03/12/18 at 16:00; Stop 03/12/18 at 16:01; Status DC Aspirin (Children'S Aspirin) 324 mg 1X ONCE PO Last administered on at 17:24; Start 03/12/18 at 17:00; Stop 03/12/18 at 17:01; Status DC Iohexol (Omnipaque 300 Mg/ml) 75 ml 1X ONCE IV Last administered on at 16:51; Start 03/12/18 at 17:00; Stop 03/12/18 at 17:01; Status DC Acetaminophen (Tylenol) 650 mg PRN Q4HRS PRN PO PAIN / TEMP Last administered on 03/13/18at 03:22; Start 03/12/18 at 23:30 Atorvastatin Calcium (Lipitor) 20 mg QHS PO ; Start 03/13/18 at 21:00 Clopidogrel Bisulfate (Plavix) 75 mg DAILY PO Last administered on 03/13/18at 08:50; Start 03/13/18 at 09:00 Insulin Glargine (Lantus) 40 units QHS SQ ; Start 03/13/18 at 21:00 Lisinopril (Prinivil) 10 mg DAILY PO Last administered on 03/13/18at 08:50; Start 03/13/18 at 09:00 Senna/Docusate Sodium (Senna Plus) 1 tab DAILY PO Last administered on at 08:49; Start 03/13/18 at 09:00 Tramadol HCl (Ultram) 50 mg DAILY PO Last administered on 03/13/18at 08:50; Start 03/13/18 at 09:00 Tamsulosin HCl (Flomax) 0.4 mg DAILY PO Last administered on 03/13/18at 08:49; Start 03/13/18 at 09:00 Aspirin (Children'S Aspirin) 81 mg DAILYWBKFT PO Last administered on at 08:50; Start 03/13/18 at 08:00 Insulin Human Lispro (HumaLOG) 10 units TIDWMEALS SQ ; Start 03/13/18 at 08:00 Amylase/Lipase/ Protease (Zenpep 10,000) 6 cap TIDWMEALS PO ; Start 03/13/18 at 08:00 Amylase/Lipase/ Protease (Zenpep 10,000) 3 cap QHS PO ; Start 03/13/18 at 21:00 Multivitamins/ Calcium (Thera-M Plus) 1 tab DAILY PO Last administered on 03/13at 08:50; Start 03/13/18 at 09:00 Fish Oil (Fish Oil) 1,000 mg DAILY PO Last administered on 03/13/18at 08:49; Start 03/13/18 at 09:00 Pioglitazone HCl (Actos) 15 mg DAILY PO Last administered on 03/13/18at 08:49; Start 03/13/18 at 09:00 Polyethylene Glycol (miraLAX) 17 gm DAILY PO Last administered on 03/13/18at 08 :49; Start 03/13/18 at 09:00 Pantoprazole Sodium (Protonix) 40 mg DAILYAC PO Last administered on at 08:49; Start 03/13/18 at 08:00 Active Scripts Active Reported Novolog Flexpen (Insulin Aspart) 100 Unit/1 Ml Insuln.pen 10 Unit SQ TIDWMEALS Lantus Solostar (Insulin Glargine,Hum.rec.anlog) 100 Unit/1 Ml Insuln.pen 40 Unit SQ QHS Miralax (Polyethylene Glycol 3350) 17 Gm Powd.pack 17 Gm PO DAILY Clopidogrel (Clopidogrel Bisulfate) 75 Mg Tablet 75 Mg PO DAILY Tramadol Hcl (Tramadol HCl) 50 Mg Tablet 50 Mg PO DAILY Rabeprazole Sodium 20 Mg Tablet.dr 20 Mg PO DAILY Benedict 3 1,000 Mg Softgel (Benedict-3 Fatty Acids/Fish Oil) 1 Each Capsule 1 Each PO DAILY Multivitamins (Multivitamin) 1 Each Tablet 1 Tab PO DAILY Creon 36,000 Units Capsule (Lipase/Protease/Amylase) 1 Each Capsule.dr 1 Each PO HS Creon 36,000 Units Capsule (Lipase/Protease/Amylase) 1 Each Capsule.dr 2 Cap PO TIDAC Aspirin 81 Mg Tab.chew 81 Mg PO DAILY Alfuzosin Hcl 10 Mg Tab.er.24h 10 Mg PO DAILY Lisinopril 10 Mg Tablet 10 Mg PO DAILY Senna Plus Tablet (Sennosides/Docusate Sodium) 1 Each Tablet 1 Each PO DAILY Atorvastatin Calcium 20 Mg Tablet 20 Mg PO QHS Pioglitazone Hcl 15 Mg Tablet 15 Mg PO DAILY Tylenol (Acetaminophen) 325 Mg Tablet 650 Mg PO PRN Q4HRS PRN Allergies: Coded Allergies: No Known Drug Allergies (Unverified , 05/10/15) Review of System as per HPI or negative for current complaints General: Alert, Oriented X3, Cooperative, mild distress, Other (pale) HEENT: Atraumatic, EOMI, Mucous membr. moist/pink Lungs: Clear to auscultation, Normal air movement Heart: Normal S1, Normal S2, Other (+murmur, no gallops, clicks or rubs) Abdomen: Normal bowel sounds, Soft, No tenderness Extremities: No cyanosis, Other (right hip wound vac in place) Neuro: Normal speech Psych/Mental Status: Mental status NL, Mood NL VITALS Vital Signs Date Time Temp Pulse Resp B/P (MAP) Pulse Ox O2 Delivery O2 Flow Rate FiO2 03/13/18 08:50 90 150/82 03/13/18 06:07 97.8 20 94 Nasal Cannula 2.0 Labs Laboratory Tests Test 03/12/18 15:38 03/12/18 17:55 03/12/18 20:50 03/12/18 23:53 White Blood Count 6.9 x10^3/uL (4.0-11.0) Red Blood Count 3.24 x10^6/uL (4.30-5.70) Hemoglobin 9.8 g/dL (13.0-17.5) Hematocrit 29.2 % (39.0-53.0) Mean Corpuscular Volume 90 fL (79-100) Mean Corpuscular Hemoglobin 30 pg (25-35) Mean Corpuscular Hemoglobin Concent 34 g/dL (31-37) Red Cell Distribution Width 13.9 % (11.5-14.5) Platelet Count 302 x10^3/uL (140-400) Neutrophils (%) (Auto) 75 % (31-73) Lymphocytes (%) (Auto) 13 % (24-48) Monocytes (%) (Auto) 9 % (0-9) Eosinophils (%) (Auto) 3 % (0-3) Basophils (%) (Auto) 0 % (0-3) Neutrophils # (Auto) 5.2 x10^3uL (1.8-7.7) Lymphocytes # (Auto) 0.9 x10^3/uL (1.0-4.8) Monocytes # (Auto) 0.7 x10^3/uL (0.0-1.1) Eosinophils # (Auto) 0.2 x10^3/uL (0.0-0.7) Basophils # (Auto) 0.0 x10^3/uL (0.0-0.2) Prothrombin Time 9.4 SEC (9.4-11.4) Prothromb Time International Ratio 0.9 (0.9-1.1) Activated Partial Thromboplast Time 26 SEC (23-33) D-Dimer (Darling) 1.33 mg/L (0.00-0.50) Sodium Level 133 mmol/L (136-145) Potassium Level 3.4 mmol/L (3.5-5.1) Chloride Level 99 mmol/L (98-107) Carbon Dioxide Level 25 mmol/L (21-32) Anion Gap 9 (6-14) Blood Urea Nitrogen 22 mg/dL (8-26) Creatinine 1.1 mg/dL (0.7-1.3) Estimated GFR (Cockcroft-Gault) 64.6 BUN/Creatinine Ratio 20 (6-20) Glucose Level 287 mg/dL (70-99) Calcium Level 8.2 mg/dL (8.5-10.1) Magnesium Level 1.9 mg/dL (1.8-2.4) Total Bilirubin 0.7 mg/dL (0.2-1.0) Aspartate Amino Transf (AST/SGOT) 24 U/L (15-37) Alanine Aminotransferase (ALT/SGPT) 24 U/L (16-63) Alkaline Phosphatase 185 U/L (46-116) Creatine Kinase 90 U/L (39-308) Troponin I Quantitative 0.057 ng/mL (0-0.055) 0.055 ng/mL (0-0.055) 0.054 ng/mL (0-0.055) CV-Kjm-H-Type Natriuretic Peptide 371 pg/mL (0-449) Total Protein 6.4 g/dL (6.4-8.2) Albumin 2.5 g/dL (3.4-5.0) Albumin/Globulin Ratio 0.6 (1.0-1.7) Lactic Acid Level 0.9 mmol/L (0.4-2.0) Test 11/16/18 08:08 Glucose (Fingerstick) 305 mg/dL (70-99) Images EKG: sinus rhythm without acute ischemic changes Assessment/Plan 1. Chest pain with minimal trop elevation in patient with known coronary disease and recent major orthopedic surgery. Currently angina free. Most recent cardiac testing as described above. Will check echo for any acute new abnormalities and plan for outpatient MPI when stable. Continue medical therapy for now. 2. CAD/CABG status 3. elevated d dimer - negative for PE, elevation likely secondary to recent surgery. consider lower extremity venous duplex. 4. recent ORIF with wound vac in place - mgmt per PCP and ortho. RN to check with Sx re need for proph anticoagulant. 5. HTN - contolled 6. HLD - check lipids and continue statin. IVY SUBRAMANIAN GLUER AND WEDGER Mar 13, 2018 09:23
[2018-03-13] MEDS: INSULIN LISPRO 300 UNITS/3 ML INSULN.PEN. SQ SCH ×3 (09:29→17:14)
[2018-03-13] MEDS: LIPASE/PROTEAS/AMYLAS 10/32/42 CAPSULE.DR. PO SCH ×3 (09:32→17:13)
[2018-03-13 11:39] VITALS: BP 98/58
[2018-03-13] MEDS ORDERED: METOCLOPRAMIDE 5 MG TABLET PO PRN (13:15)
--- NOTE | 2018-03-13 14:25 | HP ---
ADMIT DATE: 03/13/2018 HISTORY OF PRESENT ILLNESS: The patient is a 77-year-old male patient, who apparently suffered a fall at home on the stairs last week and sustained hip fracture for which he underwent open reduction and internal fixation on 03/03/2018. He was doing physical therapy at [facility] on a cycling machine and began to have increased constant pain in the hip as well as chest pain radiating to the back with associated dyspnea. The pain lasted about 5 minutes and was rated as 7/10, resolved spontaneously. By the time he arrived to the Emergency Room, he was pain free. The nursing staff also stated that his blood pressure was low and down to 60/40, although there is some doubt about the accuracy of measurement as his blood pressure was normal by the time he arrived to the Emergency Room and he was extensively investigated in the Emergency Room. He had imaging of his hip, pelvis, chest x-ray and CT angio to rule out the possibility of pulmonary embolism. His first set of cardiac enzyme was slightly elevated at 0.057 and he was admitted to do 2 more sets of cardiac enzyme and to consult the cardiology team. PAST MEDICAL HISTORY: He has severe knik three vessel disease, status post CABG. He has occluded saphenous vein graft to the right coronary artery 80% ostial MYLES and PCI with stent to the right coronary artery, PCI with stent to the left coronary artery disease. Other medical problems include atrial fibrillation, hypertension, hyperlipidemia, myocardial infarction. He is also known to have chronic constipation, gastroesophageal reflux disease, chronic pancreatitis and pancreatic pseudocyst. He has anemia, degenerative joint disease and sciatica, sensorineural deafness, benign prostatic hypertrophy, type 2 diabetes and hypothyroidism. PAST SURGICAL HISTORY: Significant for ERCP, coronary artery bypass graft surgery and open reduction and internal fixation of the right hip joint. FAMILY HISTORY: Positive for cancer and heart failure. SOCIAL HISTORY: He is nonsmoker. He does not drink alcohol or use any recreational drugs. MEDICATIONS: He is currently on following home medication. He is on alfuzosin 10 mg daily, Plavix 75 mg once a day, atorvastatin calcium 20 mg at bedtime, omega-3 fatty acid 1000 mg once a day, lisinopril 10 mg daily, aspirin 81 mg once a day, tramadol 50 mg daily, acetaminophen 650 mg every 4 hours as needed, polyethylene glycol 17 grams daily, Senna-S 1 tablet once a day. He is on Creon 36,000 units 2 capsules 3 times a day with meals and Creon one capsule at bedtime, rabeprazole sodium 20 mg daily. He is on NovoLog insulin 10 units before meals and Lantus SoloSTAR 40 units at bedtime. He is on pioglitazone 15 mg daily, multivitamin 1 tablet once a day and Flomax 0.4 mg at bedtime. REVIEW OF SYSTEMS: The patient was chest pain free by the time he arrived to the Emergency Room. PHYSICAL EXAMINATION: GENERAL: On examining him, he looked well and was clearly in no apparent respiratory distress. Pale, but no jaundice, cyanosis, or thyromegaly. No jugular venous distension. No lower limb edema. VITAL SIGNS: His heart rate on admission was 107, blood pressure was 141/65, temperature was 98, respiratory rate was 18 and oxygen saturation was 98% on room air. HEAD, EYES, EARS, NOSE AND THROAT: Showed normocephalic, atraumatic. NECK: Supple. HEART: Showed normal first and second heart sounds with no gallop, rub or murmur. CHEST: Clear to auscultation. No crepitation or rhonchi. ABDOMEN: Distended, soft, nontender. NEUROLOGIC: He was awake, alert, hard of hearing, otherwise all cranial nerves intact. EXTREMITIES: He moves extremities without difficulty. Surgical wound to the right hip was intact and healing well with no redness, tenderness, or discharge. LABORATORY DATA: While in the Emergency Room, he had lab work done, showed that his serum sodium was 133, potassium 3.4, chloride 99, bicarbonate 25, anion gap of 9, BUN 22, creatinine 1.1, estimated GFR was 64 mL per minute. His glucose was 287, calcium was 8.2, magnesium was 1.9. Total bilirubin, AST, ALT were normal. Alkaline phosphatase was high. CK was 90. Beta natriuretic peptide was 371. Total protein was 6.4, albumin 2.5. His white cell count was 6900, hemoglobin 10, hematocrit 29, MCV 90 and platelet count of 302,000. His prothrombin time was 9.4, INR 0.9, aPTT was 26 and D-dimer was 1.33 mg/dL. He did have x-ray of his right hip and pelvis showed that he has right hip hemiarthroplasty. No acute abnormality identified. Chest x-ray showed that there is no focal consolidation. There is no pleural effusion or pneumothorax. Prior median sternotomy again noted. Heart size remains normal. No acute osseous abnormalities are seen. Given chest pain and elevated D-dimer the patient underwent CT angiogram of the chest, which showed that there is no evidence of central lobar or segmental pulmonary emboli. The patient has bilateral scars or atelectasis with mild basilar bronchiectasis. He is status post CABG procedure. There is mild ectasia of the ascending or thoracic aorta. He has also mild hazy increased density of the peripancreatic fat with scattered pancreatic calcification finding suggestive of acute on chronic pancreatitis. His lactic acid was 0.9. His first set of cardiac enzymes showed troponin to be 0.017. PLAN: To admit the patient and do 2 more sets of cardiac enzyme, consult the Cardiology team and decide on further management accordingly. TROY JACKSON MD DR: RAUL/emma JOB#: [id number] / [id number]
--- NOTE | 2018-03-13 14:41 | CARD ---
MR#: [id number] Date of Study: 03/13/2018 Ordering Physician: IVY CROW, Referring Physician: TROY JACKSON Tech: Jailene Solis RDCS APPROVED REPORT EXAM: Two-dimensional and M-mode echocardiogram with Doppler and color Doppler. Other Information Quality : AverageHR: 97bpm Rhythm : NSR INDICATION Chest Pain Surgery/Intervention CABD DIMENSIONS RVDd3.2 (2.9-3.5cm)Left Atrium(2D)3.2 (1.6-4.0cm) IVSd1.3 (0.7-1.1cm)Aortic Root(2D)3.9 (2.0-3.7cm) LVDd4.4 (3.9-5.9cm)LVOT Diameter2.2 (1.8-2.4cm) PWd1.1 (0.7-1.1cm)LVDs3.2 (2.5-4.0cm) FS (%) 27.6 %SV48.4 ml LVEF(%)53.8 (>50%) M-Mode DIMENSIONS Left Atrium(MM)3.28 (2.5-4.0cm)Aortic Root3.80 (2.2-3.7cm) Aortic Valve AoV Peak Santiago.112.0cm/sAoV VTI21.3cm AO Peak GR.5.0mmHgLVOT Peak Santiago.89.1cm/s LVOT VTI 21.53cmAO Mean GR.3mmHg ERLIN (VMAX)3.55oh3TLZ (VTI)3.87cm2 Mitral Valve MV E Hanidxvy10.7cm/sMV E Peak Gr.5mmHg MV DECEL [id number] A Cmeuikow192.2cm/s MV E Mean Gr.2mmHgE/A Ratio0.9 MV A [id number] Pulmonary Valve PV Peak Rddkamvx219.5cm/sPV Peak Grad.6mmHg LEFT VENTRICLE The left ventricle is normal size. There is mild concentric left ventricular hypertrophy. Left ventri etienne systolic function is normal. The Ejection Fraction is 55%. There is normal LV segmental wall ignacio on. Transmitral Doppler flow pattern is Grade I-abnormal relaxation pattern. RIGHT VENTRICLE The right ventricle is normal size. There is normal right ventricular wall thickness. The right ventr icular systolic function is normal. ATRIA The left atrium size is normal. The right atrium size is normal. The interatrial septum is intact wit h no evidence for an atrial septal defect or patent foramen ovale as noted on 2-D or Doppler imaging. AORTIC VALVE The aortic valve is thickened but opens well. The aortic valve is trileaflet. Doppler and Color Flow revealed no significant aortic regurgitation. There is no significant aortic valvular stenosis. MITRAL VALVE The mitral valve is normal in structure and function. There is no evidence of mitral valve prolapse. There is no mitral valve stenosis. Doppler and Color-flow revealed trace mitral regurgitation. TRICUSPID VALVE The tricuspid valve is normal in structure and function. Doppler and Color Flow revealed trace tricus pid regurgitation. There is no tricuspid valve prolapse or vegetation. There is no tricuspid valve st enosis. PULMONIC VALVE Pulmonic valve not well visualized. Doppler and Color Flow revealed no pulmonic valvular regurgitatio n. There is no pulmonic valvular stenosis. GREAT VESSELS The aortic root is mildly enlarged. The ascending aorta is normal in size. PERICARDIAL EFFUSION There is no evidence of significant pericardial effusion. Critical Notification Critical Value: No <Conclusion> Left ventricle systolic function is normal. The Ejection Fraction is 55%. There is normal LV segmental wall motion. Trace mitral regurgitation. Trace tricuspid regurgitation. There is no evidence of significant pericardial effusion. Signed by : Trevor Guzman, Electronically Approved : 03/13/2018 14:40:03
[2018-03-13 16:05] VITALS: BP 146/76
[2018-03-13 18:44] VITALS: BP 138/73
[2018-03-13] MEDS: oxyCODONE IR 5 MG TABLET PO PRN (20:24)
[2018-03-13] MEDS ORDERED: LIPASE/PROTEAS/AMYLAS 10/32/42 CAPSULE.DR. PO SCH (21:00)
[2018-03-13] MEDS ORDERED: INSULIN GLARGINE 300 UNITS/3 ML INSULN.PEN. SQ SCH (21:00)
[2018-03-13] MEDS ORDERED: ATORVASTATIN CALCIUM 20 MG TABLET PO SCH (21:00)
--- NOTE | 2018-03-13 23:09 | PN ---
DATE: 03/13/2018 SUBJECTIVE: The patient was admitted yesterday with chest pain, right hip pain and what seemed to be marked postural hypertension, although there was some doubt about the accuracy of measurement in the correction. He was extensively investigated in the Emergency Room. He had a CT angio of the chest, which ruled out pulmonary emboli and his first set of cardiac enzyme was slightly elevated at 0.057. He has 2 more sets of cardiac enzymes; they were just at around the same level of 0.055 and 0.054. He was seen by the Cardiology team and they recommended doing an echocardiogram and planned for outpatient nuclear stress test and to continue with medical therapy. He has elevated D-dimer, however, the CT angio of the chest was negative for PE and he obviously has open reduction and internal fixation. In fact, he has right hip hemiarthroplasty, to continue with physical therapy and DVT prophylaxis. He has hypertension and hyperlipidemia, they are all reasonably controlled. PLAN: If the patient continued to have excessive complaint of nausea and vomiting, I will start him on Reglan before meals and bedtime for possible diabetic gastroparesis and we will start him on Lovenox for DVT prophylaxis. I will check also his lipase, as he has chronic pancreatitis and his CT scan showed that there are some features of acute on chronic pancreatitis. TROY JACKSON MD DR: RAUL/emma JOB#: [id number] / [id number]
[2018-03-13 23:35] VITALS: BP 143/75
[2018-03-14 05:45] VITALS: BP 158/84
[2018-03-14] MEDS: OMEGA-3 FATTY ACIDS/FISH OIL 1,000 MG CAPSULE. PO SCH (08:14)
[2018-03-14] MEDS: PANTOPRAZOLE 40 MG TABLET. PO SCH (08:14)
[2018-03-14] MEDS: PIOGLITAZONE 15 MG TABLET. PO SCH (08:15)
[2018-03-14] MEDS: TAMSULOSIN 0.4 MG CAP.ER.24H. PO SCH (08:15)
[2018-03-14] MEDS: ASPIRIN 81 MG TAB.CHEW PO SCH (08:15)
[2018-03-14] MEDS: traMADol 50 MG TABLET PO SCH (08:15)
[2018-03-14] MEDS: CLOPIDOGREL BISULFATE 75 MG TABLET PO SCH (08:15)
[2018-03-14] MEDS: MULTIVITAMIN with MINERAL TABLET. PO SCH (08:15)
[2018-03-14] MEDS: LIPASE/PROTEAS/AMYLAS 10/32/42 CAPSULE.DR. PO SCH ×2 (08:15→11:48)
[2018-03-14] MEDS: SENNOSIDES/DOCUSATE 8.6/50MG TABLET. PO SCH (08:15)
[2018-03-14] MEDS: POLYETHYLENE GLYCOL 3350 17 GM PACKET. PO SCH (08:16)
[2018-03-14] MEDS: LISINOPRIL 10 MG TABLET PO SCH (08:16)
[2018-03-14] MEDS: INSULIN LISPRO 300 UNITS/3 ML INSULN.PEN. SQ SCH ×2 (08:19→11:56)
--- NOTE | 2018-03-14 10:49 | DISCH ---
DISCHARGE ORDERS CONDITION AT DISCHARGE: Stable Code Status: Full SNF STAY <30 DAYS: Yes POST DISCHARGE ORDERS: ACTIVITY ORDERS: Resume previous activity DIET AFTER DISCHARGE: Cardiac WOUND/INCISION CARE: Change dressing TREATMENT/EQUIPMENT ORDERS: ADAPTIVE EQUIPMENT NEEDED: Walker DISCHARGE MEDICATIONS: Home Meds Reported Medications Insulin Aspart (NOVOLOG FLEXPEN) 100 Unit/1 Ml Insuln.pen, 10 UNIT SQ TIDWMEALS for diabetes, SYR 03/12/18 Insulin Glargine,Hum.rec.anlog (LANTUS SOLOSTAR) 100 Unit/1 Ml Insuln.pen, 40 UNIT SQ QHS for diabetes, #15 ML 3 Refills 03/12/18 Polyethylene Glycol 3350 (MIRALAX) 17 Gm Powd.pack, 17 GM PO DAILY for constipation, PKT 03/12/18 Clopidogrel Bisulfate (CLOPIDOGREL) 75 Mg Tablet, 75 MG PO DAILY for CAD 03/12/18 Tramadol Hcl (TRAMADOL HCL) 50 Mg Tablet, 50 MG PO DAILY for pancreas pain, TAB 03/12/18 Rabeprazole Sodium (RABEPRAZOLE SODIUM) 20 Mg Tablet.dr, 20 MG PO DAILY for GERD 03/12/18 [place]-3 Fatty Acids/Fish Oil (OMEGA 3 1,000 MG SOFTGEL) 1 Each Capsule, 1 EACH PO DAILY for supplement, CAP 03/12/18 Multivitamin (MULTIVITAMINS) 1 Each Tablet, 1 TAB PO DAILY for supplement, #30 TAB 2 Refills 03/12/18 Lipase/Protease/Amylase (KELSIE ESTRADA 36,000 UNITS CAPSULE) 1 Each Capsule.dr, 1 EACH PO HS for pancreas, CAP 03/12/18 Lipase/Protease/Amylase (KELSIE ESTRADA 36,000 UNITS CAPSULE) 1 Each Capsule., 2 CAP PO TIDAC for pancreas 03/12/18 Aspirin (ASPIRIN) 81 Mg Tab.chew, 81 MG PO DAILY for CAD, TAB 03/12/18 Alfuzosin Hcl (ALFUZOSIN HCL) 10 Mg Tab.er.24h, 10 MG PO DAILY for BPH 03/12/18 Lisinopril (LISINOPRIL) 10 Mg Tablet, 10 MG PO DAILY for FOR HYPERTENSION, #30 TAB 0 Refills 03/12/18 Sennosides/Docusate Sodium (SENNA PLUS TABLET) 1 Each Tablet, 1 EACH PO DAILY for constipation, TAB 03/12/18 Atorvastatin Calcium (ATORVASTATIN CALCIUM) 20 Mg Tablet, 20 MG PO QHS for high cholesterol, #30 TAB 0 Refills 03/12/18 Pioglitazone Hcl (PIOGLITAZONE HCL) 15 Mg Tablet, 15 MG PO DAILY for type II diabetes 03/12/18 Acetaminophen (TYLENOL) 325 Mg Tablet, 650 MG PO PRN Q4HRS PRN for PAIN / TEMP, TAB 03/12/18 TROY JACKSON MD Mar 14, 2018 10:49
[2018-03-14 10:55] VITALS: BP 112/62
[2018-03-14] MEDS: oxyCODONE IR 5 MG TABLET PO PRN (10:56)
[2018-03-14] MEDS ORDERED: ENOX40DI SQ (11:01)
--- NOTE | 2018-03-14 11:25 | DS ---
DATE OF DISCHARGE: 03/14/2018 HISTORY OF PRESENT ILLNESS: The patient is a 77-year-old male patient, who was admitted recently to [facility] and rehab after he fell sustaining right hip fracture for which he underwent open reduction and internal fixation on 03/03/2018. He was doing physical therapy at [facility] when he on a cycling machine he began to have increased pain in the hip as well as his chest pain radiating to the back with associated shortness of breath. The pain lasted about 5 minutes and was rated about 7/10 and resolved spontaneously by the time he arrived to the Emergency Room he was pain free. The nursing staff also stated that his blood pressure was low around 60/40. Although, there is some doubt about the accuracy of measurement as his blood pressure was normal by the time he arrived to the Emergency Room. He was extensively investigated. He had a CT angio to rule out the possibility of pulmonary embolism. It was negative. His first set of cardiac enzyme was slightly elevated at 0.057. He was admitted to do 2 more sets of cardiac enzyme and to consult the Cardiology. He was seen in consultation by the resource development manager and basically the patient has minimal troponin elevation. The patient with known coronary artery disease and recent major orthopedic surgery and therefore a decision was made to check his echocardiogram and arrange for him to have an MPI as an outpatient when stable and to continue with medical therapy. The patient has had an echocardiogram done yesterday, which basically showed that his left ventricular systolic function is normal, ejection fraction was 55%, normal left ventricular segmental wall motion. He has trace mitral regurgitation, trace tricuspid regurgitation, but no evidence of significant pericardial effusion and as he remained chest pain free hemodynamically stable, a decision was made to discharge him back to [place] to continue with the process of physical and occupational therapy. PHYSICAL EXAMINATION: GENERAL: When I saw him this morning, he was sitting comfortably in the edge of the bed, in no apparent distress, slightly pale, but no jaundice, cyanosis, or thyromegaly. No jugular venous distension. No limb edema. VITAL SIGNS: His heart rate was 93, blood pressure was 158/84, temperature was 97.6, respiratory rate 20, and oxygen saturation was 96% on room air. HEAD, EYES, EARS, NOSE AND THROAT: Showed normocephalic, atraumatic. NECK: Supple. HEART: Showed normal first and second heart sounds with no gallop, rub or murmur. CHEST: Clear to auscultation. No crepitation or rhonchi. ABDOMEN: Distended, soft, nontender. NEUROLOGIC: He is awake, alert, responding appropriately. All cranial nerves intact. He moves extremities without difficulty, ambulates with a walker. His intake over the last 24 hours was 1000, output was 1550. LABORATORY DATA: Showed a white cell count of 6900, hemoglobin 10, hematocrit 30, MCV 90 and platelet count of 302,000. His chemistry showed his serum sodium was 133, potassium 3.4, chloride 99, bicarbonate 25, anion gap of 9, BUN 22, creatinine 1.1, estimated GFR was 64 mL per minute. His glucose was 187, calcium was 8.2, magnesium was 1.9. Total bilirubin, AST, ALT were normal. Alkaline phosphatase slightly elevated. His serum triglycerides were 86, total cholesterol 90, LDL was 46, VLDL was 17, and HDL cholesterol was 27, the ratio of 3. DISCHARGE MEDICATIONS: The patient was discharged back to [place] to continue on Tylenol 650 mg every 4 hours as needed for pain or fever, alfuzosin 10 mg daily, aspirin 81 mg once a day, atorvastatin calcium 20 mg at bedtime, Plavix 75 mg once a day, NovoLog insulin 10 units before meals and Lantus insulin 40 units at bedtime. He is on Creon 36,000 units take 2 capsules t.i.d. before meals and one Creon at bedtime, lisinopril 10 mg once a day, multivitamin 1 tablet once a day, omega-3 fatty acid 1 capsule once a day, pioglitazone 15 mg daily, polyethylene glycol 17 grams daily, rabeprazole 20 mg once a day, Senna S 1 tablet daily and tramadol 50 mg once a day. FINAL DISCHARGE DIAGNOSES: 1. Chest pain, myocardial infarction ruled out. The patient has minimal elevation of troponin. His echocardiogram showed normal left ventricular systolic function, ejection fraction 55%. 2. Hypertension, well controlled. 3. Hyperlipidemia, on statin. 4. Coronary artery disease, status post CABG. 5. Elevated D-dimer; however, the CT angio was negative for pulmonary emboli, fall with recent sustaining right hip fracture, status post open reduction and internal fixation. He has also type 2 diabetes mellitus as well as anemia and chronic pancreatitis, hypothyroidism, benign prostatic hypertrophy. TROY JCAKSON MD DR: RAUL/emma JOB#: [id number] / [id number]
== END 2018-03-14 12:50 | DRG 391 ==
LOC: ER 15:37 → 1 SOUTH 17:42
PROVIDERS: ADMIT Internal Medicine; ATTEND Internal Medicine
DX: K21.9 Gastro-esophageal reflux disease without esophagitis (principal); E43 Unspecified severe protein-calorie malnutrition; K86.1 Other chronic pancreatitis; D64.9 Anemia, unspecified; E03.9 Hypothyroidism, unspecified; E11.65 Type 2 diabetes mellitus with hyperglycemia; E78.5 Hyperlipidemia, unspecified; H90.5 Unspecified sensorineural hearing loss; I11.0 Hypertensive heart disease with heart failure; I25.10 Atherosclerotic heart disease of native coronary artery without angina pectoris; I25.2 Old myocardial infarction; I25.82 Chronic total occlusion of coronary artery; I48.91 Unspecified atrial fibrillation; I50.9 Heart failure, unspecified; N40.0 Benign prostatic hyperplasia without lower urinary tract symptoms; R79.1 Abnormal coagulation profile; Z82.49 Family history of ischemic heart disease and other diseases of the circulatory system; Z96.641 Presence of right artificial hip joint; K59.09 Other constipation; M19.90 Unspecified osteoarthritis, unspecified site; Z87.81 Personal history of (healed) traumatic fracture; Z95.1 Presence of aortocoronary bypass graft; Z68.23 Body mass index [BMI] 23.0-23.9, adult
CPT/HCPCS: 36415; 71045; 71275; 73502; 80053; 80061; 82550; 82947; 83605; 83690; 83735; 83880; 84484; 85025; 85379; 85610; 85730; 87641; 93005; 93306; 96374; J1815; J3010; Q9967; 99291-25

== ENCOUNTER 2018-04-02 10:15 | Inpatient (IN) | payer MEDICARE, BC ==
[2018-04-02] VITALS (7 sets, daily range): BP systolic 91–135; BP diastolic 58–78
[~2018-04-02] VITALS: Ht 175.3 cm; Wt 68.7 kg
[~2018-04-02 10:15] MED LIST changes: +ACET325T9 PO; +ALFU10TA3 PO; +ASPI-630 PO; +ATOR20TA58 PO; +CLOP75TA PO; +ENOX40DI SQ; +INSU100I13 SQ; +INSU100I17 SQ; -IOHEXOL 240 MG/ML 50ML VIAL. ONE; -IOHEXOL 300 MG/ML 75 ML VIAL. IV ONE; +LIPA1CAP8 PO; +LISI10TA2 PO; +MULT1TAB52 PO; +OMEG-33 PO; +PIOG15TA63 PO; +POLY17PO5 PO; +RABE20TA26 PO; +SENN1TAB21 PO; +TRAM50TA PO
[2018-04-02 10:45] LABS: BASO % 1 % (0-3); EOS # 0.1 x10^3/uL (0.0-0.7); EOS % 2 % (0-3); HEMATOCRIT 35.9 % (39.0-53.0); HEMOGLOBIN 11.9 g/dL (13.0-17.5); LYMPH # 1.3 x10^3/uL (1.0-4.8); LYMPH % 18 % (24-48); MEAN CORPUSCULAR HEMOGLOBIN 31 pg (25-35); MEAN CORPUSCULAR HGB CONC 33 g/dL (31-37); MEAN CORPUSCULAR VOLUME 93 fL (79-100); MONO # 0.6 x10^3/uL (0.0-1.1); MONO % 9 % (0-9); NEUT # 5.1 x10^3uL (1.8-7.7); NEUT % 71 % (31-73); PLATELET COUNT 307 x10^3/uL (140-400); RED BLOOD COUNT 3.88 x10^6/uL (4.30-5.70); RED CELL DISTRIBUTION WIDTH 15.4 % (11.5-14.5); WHITE BLOOD COUNT 7.2 x10^3/uL (4.0-11.0)
[2018-04-02 11:06] LABS: ALBUMIN 2.9 g/dL (3.4-5.0); ALBUMIN/GLOBULIN RATIO 0.7 (1.0-1.7); CALCIUM 8.9 mg/dL (8.5-10.1); CREATININE 1.1 mg/dL (0.7-1.3); GFR 64.6; MAGNESIUM 1.8 mg/dL (1.8-2.4); POTASSIUM 4.3 mmol/L (3.5-5.1); TOTAL BILIRUBIN 0.3 mg/dL (0.2-1.0); TOTAL PROTEIN 6.9 g/dL (6.4-8.2)
--- NOTE | 2018-04-02 11:17 | PHYS DOC ---
Past History Past Medical History: CAD, CHF, Diabetes, High Cholesterol, Hip Fracture, Other Past Surgical History: Coronary Bypass Surgery, Other Smoking: Non-smoker Alcohol Use: None Drug Use: None Adult General Chief Complaint Chief Complaint: WEAKNESS/GENERALIZED HPI HPI Patient is a 77 year old male with history of right hip fracture and surgery and episodes of hypotension with recent hospitalization and negative cardiac and extensive evaluation in by EMS because of generalized weakness and hypotension. Patient states he was in rehabilitation and had exercise more than his usual and felt generalized weakness with seen stars in front of his eyes without chest pain, shortness of breath, nausea and vomiting. Patient's blood pressure dropped to 60s over 30 and EMS was informed. Patient did not have recorded hypertension by EMS or at arrival to ER. Review of Systems Review of Systems Constitutional: Denies fever or chills [] Eyes: Denies change in visual acuity, redness, or eye pain [] HENT: Denies nasal congestion or sore throat [] Respiratory: Denies cough or shortness of breath [] Cardiovascular: No additional information not addressed in HPI [] GI: Denies abdominal pain, nausea, vomiting, bloody stools or diarrhea [] : Denies dysuria or hematuria [] Musculoskeletal: Denies back pain, reports joint pain [] Integument: Denies rash or skin lesions [] Neurologic: Denies headache, focal weakness or sensory changes [] Endocrine: Denies polyuria or polydipsia [] All other systems were reviewed and found to be within normal limits, except as documented in this note. Allergies Allergies Allergies Coded Allergies Type Severity Reaction Last Updated Verified No Known Drug Allergies 05/10/15 No Physical Exam Physical Exam Constitutional: Well developed, well nourished, no acute distress, non-toxic appearance. [] HENT: Normocephalic, atraumatic, oropharynx moist, no oral exudates, nose normal. [] Eyes: PERRLA, EOMI, conjunctiva normal, no discharge. [] Neck: Normal range of motion, no tenderness, supple, no stridor. [] Cardiovascular: Tachycardia ,no murmur [] Lungs & Thorax: Bilateral breath sounds clear to auscultation [] Abdomen: Bowel sounds normal, soft, no tenderness, no masses, no pulsatile masses. [] Skin: Warm, dry, no erythema, no rash. [] Back: No tenderness, no CVA tenderness. [] Extremities: No tenderness, no cyanosis, no clubbing, ROM intact, no edema. [] Neurologic: Alert and oriented X 3, normal motor function, normal sensory function, no focal deficits noted. [] Psychologic: Affect normal, judgement normal, mood normal. [] Current Patient Data Vital Signs Vital Signs Date Time Temp Pulse Resp B/P (MAP) Pulse Ox O2 Delivery O2 Flow Rate FiO2 04/02/18 10:20 97.9 108 20 96 Room Air Lab Results Laboratory Tests Test 04/02/18 10:33 White Blood Count 7.2 x10^3/uL (4.0-11.0) Red Blood Count 3.88 x10^6/uL (4.30-5.70) L Hemoglobin 11.9 g/dL (13.0-17.5) L Hematocrit 35.9 % (39.0-53.0) L Mean Corpuscular Volume 93 fL (79-100) Mean Corpuscular Hemoglobin 31 pg (25-35) Mean Corpuscular Hemoglobin Concent 33 g/dL (31-37) Red Cell Distribution Width 15.4 % (11.5-14.5) H Platelet Count 307 x10^3/uL (140-400) Neutrophils (%) (Auto) 71 % (31-73) Lymphocytes (%) (Auto) 18 % (24-48) L Monocytes (%) (Auto) 9 % (0-9) Eosinophils (%) (Auto) 2 % (0-3) Basophils (%) (Auto) 1 % (0-3) Neutrophils # (Auto) 5.1 x10^3uL (1.8-7.7) Lymphocytes # (Auto) 1.3 x10^3/uL (1.0-4.8) Monocytes # (Auto) 0.6 x10^3/uL (0.0-1.1) Eosinophils # (Auto) 0.1 x10^3/uL (0.0-0.7) Basophils # (Auto) 0.0 x10^3/uL (0.0-0.2) EKG EKG EKG interpreted by me. EKG at 1028 showed sinus tachycardia at rate of 104, normal interval and axis, poor R-wave progress in anteroseptal leads, no new change from previous EKG, no acute distress and T-wave abnormalities.[] Radiology/Procedures Radiology/Procedures [address] [address] IMAGING REPORT Signed PATIENT: OSMANI CROW ACCOUNT: [id number] : 1940 LOCATION: ER AGE: 77 SEX: M EXAM STATUS: REG ER ORD. PHYSICIAN: DORA BARRON MD REASON: generalized weakness and hypotension PROCEDURE: CT HEAD WO CONTRAST CT HEAD WO CONTRAST Indication: GENERALIZED WEAKNESS AND HYPOTENSION Exposure: One or more of the following individualized dose reduction techniques were utilized for this examination: 1. Automated exposure control 2. Adjustment of the mA and/or kV according to patient size 3. Use of iterative reconstruction technique. Comparison: March 06, 2018 Contrast: None FINDINGS: Posterior fossa is unremarkable. No evidence of acute intracranial hemorrhage or abnormal extra-axial fluid collection. No evidence of mass effect or midline shift. Very mild white matter low-density bilaterally, nonspecific, commonly due to chronic small vessel ischemic disease in this age group. Mild cerebral atrophy. Visualized orbits are unremarkable. Visualized paranasal sinuses and mastoids are clear. No acute calvarial abnormality. Impression: Stable findings, no evidence of acute intracranial hemorrhage or mass effect. Electronically signed by: Peter Mirza MD (04/02/2018 11:39 AM) [facility] DICTATED AND SIGNED BY: PETER MIRZA MD DATE: 04/02/18 4480 CC: DORA BARRON MD; DENYS THRASHER MD ~ [address] [address] IMAGING REPORT Signed PATIENT: OSMANI CROW ACCOUNT: [id number] : 1940 LOCATION: ER AGE: 77 SEX: M EXAM STATUS: REG ER ORD. PHYSICIAN: DORA BARRON MD REASON: generalized weakness and dizziness PROCEDURE: CHEST AP ONLY Portable chest, 04/02/2018: HISTORY: Hypotension, weakness Comparison is made to a study from 03/12/2018. There has been a previous median sternotomy. The heart size is normal. The lungs are clear. There is no evidence of pleural fluid. IMPRESSION: No acute cardiopulmonary abnormality is detected. Electronically signed by: Miles Casillas MD (04/02/2018 11:47 AM) [facility] DICTATED AND SIGNED BY: MILES CASILLAS MD DATE: 04/02/18 1146 CC: DORA BARRON MD; DENYS THRASHER MD ~ [address] [address] IMAGING REPORT Signed PATIENT: OSMANI CROW ACCOUNT: [id number] : 1940 LOCATION: ER AGE: 77 SEX: M EXAM STATUS: REG ER ORD. PHYSICIAN: DORA BARRON MD REASON: weakness, elevated d-dimer, recent surgery PROCEDURE: CT ANGIOGRAPHY CHEST CT ANGIOGRAPHY CHEST Indication: WEAKNESS, ELEVATED D-DIMER, RECENT HIP SURGERY, 75MLS OMNI 300 IV CONTRAST . Comparison: March 12, 2018 Technique: After intravenous contrast administration, CT imaging was performed of the chest. MIP reconstructions were obtained. Exposure: One or more of the following individualized dose reduction techniques were utilized for this examination: 1. Automated exposure control 2. Adjustment of the mA and/or kV according to patient size 3. Use of iterative reconstruction technique. FINDINGS: Pulmonary arteries:No evidence of pulmonary embolism. Thoracic aorta: Mildly calcified. No evidence of aneurysm. Thyroid gland:Visualized aspect is unremarkable. Lymph nodes:No significant enlargement Heart: Coronary artery calcifications. Esophagus: Unremarkable Pleural spaces: No significant effusion Lungs: Irregular linear bands of density in both lungs are again identified, without evidence of consolidating infiltrate. No new area of airspace consolidation. Trachea and central airways: Patent Bones: Degenerative spondylosis of the spine. Mild anterior wedging of several vertebra in the region of the thoracolumbar junction may represent mild chronic anterior compression fractures or developmental variants. Slight scoliotic curvature of the thoracic spine. Upper abdomen: Slices through the upper abdomen are limited due to the technique . Partially visualized hypodense lesion of the upper pole the right kidney is again identified, measures 5 cm incompletely characterized. Gastric wall thickening, most likely due to lack of distention. Limited visualization of the pancreas demonstrates calcification. IMPRESSION: 1. No evidence of pulmonary embolism. 2. Increased linear densities in both lungs, stable, likely fibrosis or atelectasis. 3. Apparent gastric wall thickening, most likely just due to incomplete distention. 4. Incompletely visualized cystic lesion upper pole right kidney is redemonstrated. Electronically signed by: Peter Mirza MD (04/02/2018 12:26 PM) [facility] DICTATED AND SIGNED BY: PETER MIRZA MD DATE: 04/02/18 1202 CC: DORA BARRON MD; DENYS THRASHER MD ~ Course & Med Decision Making Course & Med Decision Making Pertinent Labs and Imaging studies reviewed. (See chart for details) Evaluation of patient in ER showed 77-year-old male patient with history of recent hip replacement had 1 episodes of hypotension 38 was in rehabilitation. Patient did not have hypotension or altered level of consciousness or fever at arrival to ER. Patient had mild tachycardia and elevation of d-dimer with unremarkable cardiac enzymes. CT of chest was unremarkable for PE. Patient had another recent hospitalization with the same symptoms with negative cardiac and extensive evaluation. Dr. Allen was informed at 1227 and recommended to admit patient for observation. Dragon Disclaimer Dragon Disclaimer This electronic medical record was generated, in whole or in part, using a voice recognition dictation system. Departure Departure: Impression: Primary Impression: Generalized weakness Additional Impressions: Tachycardia Elevated d-dimer Right hip pain Anemia Disposition: ADMITTED INPATIENT (at 1228) Admitting Physician: Stephane Allen (accepted admission at 1227) Condition: IMPROVED Referrals: DENYS THRASHER MD (PCP) Problem Qualifiers DORA BARRON MD Apr 02, 2018 11:17
--- NOTE | 2018-04-02 11:27 | EKG ---
[address] [address] Test Date: 2018-04-02 Test Time: 10:28:53 Pat Name: OSMANI CROW Department: Room: Gender: M Infrastructure Administrator: : 1940 Requested By: DORA BARRON Order Number: [id number] Reading MD: Measurements Intervals [place] Rate: 104 P: 31 AR: 130 QRS: 37 QRSD: 90 T: 56 QT: 336 QTc: 448 Interpretive Statements SINUS TACHYCARDIA QRS(T) CONTOUR ABNORMALITY CONSIDER INFERIOR MYOCARDIAL DAMAGE POSSIBLY ABNORMAL ECG RI6.01 Unconfirmed report No previous ECG available for comparison
--- NOTE | 2018-04-02 11:43 | RAD ---
CT HEAD WO CONTRAST Indication: GENERALIZED WEAKNESS AND HYPOTENSION Exposure: One or more of the following individualized dose reduction techniques were utilized for this examination: 1. Automated exposure control 2. Adjustment of the mA and/or kV according to patient size 3. Use of iterative reconstruction technique. Comparison: March 06, 2018 Contrast: None FINDINGS: Posterior fossa is unremarkable. No evidence of acute intracranial hemorrhage or abnormal extra-axial fluid collection. No evidence of mass effect or midline shift. Very mild white matter low-density bilaterally, nonspecific, commonly due to chronic small vessel ischemic disease in this age group. Mild cerebral atrophy. Visualized orbits are unremarkable. Visualized paranasal sinuses and mastoids are clear. No acute calvarial abnormality. Impression: Stable findings, no evidence of acute intracranial hemorrhage or mass effect. Electronically signed by: Peter Mirza MD (04/02/2018 11:39 AM) [facility]
[2018-04-02] MEDS ORDERED: IOHEXOL 300 MG/ML 75 ML VIAL. IV ONE (11:45)
[2018-04-02] MEDS ORDERED: KETOROLAC 30 MG/ML VIAL. IV ONE (11:45)
--- NOTE | 2018-04-02 11:51 | RAD ---
Portable chest, 04/02/2018: HISTORY: Hypotension, weakness Comparison is made to a study from 03/12/2018. There has been a previous median sternotomy. The heart size is normal. The lungs are clear. There is no evidence of pleural fluid. IMPRESSION: No acute cardiopulmonary abnormality is detected. Electronically signed by: Miles Casillas MD (04/02/2018 11:47 AM) [facility]
--- NOTE | 2018-04-02 12:29 | RAD ---
CT ANGIOGRAPHY CHEST Indication: WEAKNESS, ELEVATED D-DIMER, RECENT HIP SURGERY, 75MLS OMNI 300 IV CONTRAST . Comparison: March 12, 2018 Technique: After intravenous contrast administration, CT imaging was performed of the chest. MIP reconstructions were obtained. Exposure: One or more of the following individualized dose reduction techniques were utilized for this examination: 1. Automated exposure control 2. Adjustment of the mA and/or kV according to patient size 3. Use of iterative reconstruction technique. FINDINGS: Pulmonary arteries:No evidence of pulmonary embolism. Thoracic aorta: Mildly calcified. No evidence of aneurysm. Thyroid gland:Visualized aspect is unremarkable. Lymph nodes:No significant enlargement Heart: Coronary artery calcifications. Esophagus: Unremarkable Pleural spaces: No significant effusion Lungs: Irregular linear bands of density in both lungs are again identified, without evidence of consolidating infiltrate. No new area of airspace consolidation. Trachea and central airways: Patent Bones: Degenerative spondylosis of the spine. Mild anterior wedging of several vertebra in the region of the thoracolumbar junction may represent mild chronic anterior compression fractures or developmental variants. Slight scoliotic curvature of the thoracic spine. Upper abdomen: Slices through the upper abdomen are limited due to the technique . Partially visualized hypodense lesion of the upper pole the right kidney is again identified, measures 5 cm incompletely characterized. Gastric wall thickening, most likely due to lack of distention. Limited visualization of the pancreas demonstrates calcification. IMPRESSION: 1. No evidence of pulmonary embolism. 2. Increased linear densities in both lungs, stable, likely fibrosis or atelectasis. 3. Apparent gastric wall thickening, most likely just due to incomplete distention. 4. Incompletely visualized cystic lesion upper pole right kidney is redemonstrated. Electronically signed by: Peter Mirza MD (04/02/2018 12:26 PM) [facility]
[2018-04-02] MEDS ORDERED: POTA20TA4 PO (14:46)
[2018-04-02] MEDS ORDERED: OXYC5TAB4 PO (14:52)
[2018-04-02] MEDS ORDERED: METO10TA81 PO (14:58)
[2018-04-02] MEDS ORDERED: ACETAMINOPHEN 325 MG TABLET PO PRN (15:30)
[2018-04-02] MEDS ORDERED: MIDODRINE 5 MG TABLET PO PRN (16:00)
--- NOTE | 2018-04-02 16:19 | HP ---
ADMIT DATE: 04/02/2018 HISTORY OF PRESENT ILLNESS: The patient is a 77-year-old male patient currently residing at [facility] to continue the process of rehabilitation. He apparently was in a stationary bike when he felt dizzy, saw stars in front of his eyes and his blood pressure was noted to be low and he was transferred to the Emergency Room, where he was extensively investigated. His D-dimer was high at 2.[address] a [address] angio of the chest, which showed no evidence of pulmonary embolism, increased linear densities in both lungs, stable, likely fibrosis, atelectasis, apparent gastric wall thickening, most likely just due to incomplete distention. He has also incompletely visualized cystic lesion of the upper pole of the right kidney. All his other labs are within acceptable range. His EKG was unremarkable and the patient was admitted for further evaluation and treatment. In fact, by the time he arrived to the floor, his orthostatic blood pressure showed that his blood pressure was 123/75 supine, sitting the blood pressure was 97/61 and standing was 91/58. The patient was symptomatic, although he managed to walk with a walker to the bathroom. On questioning him further, he denied any chest pain, denied any shortness of breath, orthopnea or paroxysmal nocturnal dyspnea. Denied any chest pain, vertigo or palpitation. PAST MEDICAL HISTORY: Significant for severe [place] 3-vessel disease, status post coronary artery bypass graft surgery. He has occluded saphenous vein graft to the right coronary artery 80% ostial MYLES and PCI with stent to the right coronary artery, PCI with a stent to the left coronary artery disease. Other medical problems include atrial fibrillation, hypertension, hyperlipidemia, myocardial infarction. He is also known to have chronic constipation, gastroesophageal reflux disease, chronic pancreatitis and pancreatic pseudocyst. He has anemia, degenerative joint disease and sciatica, sensorineural deafness, benign prostatic hypertrophy, and type 2 diabetes as well as hypothyroidism. PAST SURGICAL HISTORY: Significant for ERCP, coronary artery bypass graft surgery, open reduction and internal fixation of his right hip joint. FAMILY HISTORY: Positive for cancer and heart disease. SOCIAL HISTORY: He is nonsmoker. He does not drink alcohol or use recreational drugs. MEDICATIONS: He is currently on following medications, alfuzosin 10 mg once a day, Plavix 75 mg daily, atorvastatin calcium 20 mg at bedtime, omega-3 fatty acid 1000 mg daily, lisinopril 10 mg once a day, aspirin 81 mg once a day, oxycodone immediate release 5 mg every 4 hours as needed, tramadol 50 mg daily, acetaminophen 650 mg every 4 hours as needed, potassium chloride 20 mEq twice a day, polyethylene glycol 17 grams daily, Senna-S 1 tablet daily, Creon 36,000 unit capsule 2 capsules 3 times a day, Creon 1 capsule at bedtime. He is on rabeprazole 20 mg once a day, metoclopramide 10 mg, he takes 5 mg 3 times a day with meals. He is on NovoLog insulin 5 units 3 times a day and Lantus insulin 20 units twice a day. He is on pioglitazone 15 mg at bedtime, multivitamin 1 tablet once a day. PHYSICAL EXAMINATION: GENERAL: When I saw him this afternoon, he was resting slightly propped up in bed, in no apparent respiratory distress. He was pale, somewhat cachectic, but no jaundice, cyanosis, or thyromegaly. No jugular venous distension. No limb edema. VITAL SIGNS: His heart rate was 106, blood pressure was 91/58, temperature was 97.8, respiratory rate 20, and oxygen saturation was 93%. HEAD, EYES, EARS, NOSE AND THROAT: Showed normocephalic, atraumatic. NECK: Supple. HEART: Showed normal first and second heart sounds. No gallop, rub or murmur. CHEST: Clear to auscultation. No crepitation or rhonchi. ABDOMEN: Distended, soft, nontender. No guarding or rigidity. No organomegaly. All hernial orifice intact. Bowel sounds normal. NEUROLOGIC: He is awake, alert, responding appropriately. All his cranial nerves are intact. He moves extremities without difficulty. He is able to ambulate with a walker without any problem. LABORATORY DATA: His lab work this morning on arrival to the Emergency Room showed a white cell count 7200, hemoglobin 11.9, hematocrit 36, MCV 93, and platelet count 307,000. His prothrombin time was 10.1, INR of 1. D-dimer was 2.46. His chemistry showed a serum sodium 139, potassium 4.3, chloride 103, bicarbonate 26, anion gap of 10, BUN 22, creatinine 1.1, estimated GFR was 65 mL per minute. His glucose was 85, lactic acid was 1.5, calcium was 8.9, magnesium was 1.8. Total bilirubin, AST, ALT, alkaline phosphatase were normal. His first set of cardiac enzymes showed troponin to be less than 0.017. His beta natriuretic peptide was 133. Total protein was 6.9, albumin 2.9 and lipase was only 26. His CT scan of the head showed that the patient has posterior fossa is unremarkable. No evidence of acute intracranial hemorrhage or abnormal extraaxial fluid collection, no evidence of mass effect or midline shift, very mild white matter, low density bilaterally, nonspecific commonly due to chronic small vessel ischemic disease in this age group. Mild cerebral atrophy. Visualized orbits are unremarkable. Visualized paranasal sinuses and mastoid air cells are clear. No acute calvarial abnormality. His kidney function improved such that he does not need dialysis anymore. His chest x-ray showed there has been a previous median sternotomy. The heart size is normal. The lungs are clear. There is no evidence of pleural fluid and there is no acute cardiopulmonary abnormality detected. His angiography of the chest showed no evidence of pulmonary embolism. Increased ____ densities in both lungs are stable likely fibrosis or atelectasis, apparent gastric wall thickening, most likely due to incomplete distention, in complete visualized cystic lesion of the upper pole of the left and right kidney. Basically, this is a patient was admitted to continue on all his medication. We will continue to monitor his blood sugar and adjust insulin as needed. We will check his orthostatics and we will consult the cardiology team to evaluate and treat. TROY JACKSON MD DR: RAUL/emma JOB#: [id number] / [id number]
[2018-04-02] MEDS ORDERED: METOCLOPRAMIDE 5 MG TABLET PO PRN (16:30)
[2018-04-02] MEDS: IV NORMAL SALINE 1,000ML 1,000 ML IV SCH (16:38)
[2018-04-02] MEDS: LIPASE/PROTEAS/AMYLAS 10/32/42 CAPSULE.DR. PO SCH ×2 (16:38→21:33)
[2018-04-02] MEDS: INSULIN LISPRO 300 UNITS/3 ML INSULN.PEN. SQ SCH (17:20)
--- NOTE | 2018-04-02 17:52 | EKG ---
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
[2018-04-02] MEDS: ATORVASTATIN CALCIUM 20 MG TABLET PO SCH (21:32)
[2018-04-02] MEDS: POTASSIUM CHLORIDE 20 MEQ TABLET.ER. PO SCH (21:33)
[2018-04-02] MEDS: INSULIN GLARGINE 300 UNITS/3 ML INSULN.PEN. SQ SCH (21:43)
[2018-04-03] MEDS: IV NORMAL SALINE 1,000ML 1,000 ML IV SCH ×2 (05:08→19:48)
[2018-04-03] MEDS: oxyCODONE IR 5 MG TABLET PO PRN (05:37)
[2018-04-03 05:43] VITALS: BP 153/80
[2018-04-03 06:56] LABS: CALCIUM 8.6 mg/dL (8.5-10.1); CREATININE 0.8 mg/dL (0.7-1.3); GFR 93.3; POTASSIUM 4.6 mmol/L (3.5-5.1)
[2018-04-03] MEDS: PANTOPRAZOLE 40 MG TABLET. PO SCH (07:32)
[2018-04-03] MEDS: LIPASE/PROTEAS/AMYLAS 10/32/42 CAPSULE.DR. PO SCH ×4 (07:47→21:27)
[2018-04-03] MEDS: OMEGA-3 FATTY ACIDS/FISH OIL 1,000 MG CAPSULE. PO SCH (08:11)
[2018-04-03] MEDS: SENNOSIDES/DOCUSATE 8.6/50MG TABLET. PO SCH (08:11)
[2018-04-03] MEDS: TAMSULOSIN 0.4 MG CAP.ER.24H. PO SCH (08:11)
[2018-04-03] MEDS: MULTIVITAMIN with MINERAL TABLET. PO SCH (08:11)
[2018-04-03] MEDS: PIOGLITAZONE 15 MG TABLET. PO SCH (08:11)
[2018-04-03] MEDS: ASPIRIN 81 MG TAB.CHEW PO SCH (08:11)
[2018-04-03] MEDS: CLOPIDOGREL BISULFATE 75 MG TABLET PO SCH (08:11)
[2018-04-03] MEDS: POTASSIUM CHLORIDE 20 MEQ TABLET.ER. PO SCH ×2 (08:12→21:28)
[2018-04-03] MEDS: traMADol 50 MG TABLET PO SCH (08:12)
[2018-04-03] MEDS: INSULIN LISPRO 300 UNITS/3 ML INSULN.PEN. SQ SCH ×3 (08:15→17:03)
[2018-04-03] MEDS: INSULIN GLARGINE 300 UNITS/3 ML INSULN.PEN. SQ SCH ×2 (08:16→21:30)
[2018-04-03] MEDS ORDERED: POLYETHYLENE GLYCOL 3350 17 GM PACKET. PO PRN (09:00)
[2018-04-03] MEDS ORDERED: LISINOPRIL 10 MG TABLET PO SCH (09:00)
--- NOTE | 2018-04-03 10:01 | PDOC ---
PROGRESS NOTES Diagnosis Problem Problems Medical Problems: (1) Generalized weakness Status: Acute Assessment Problems Medical Problems: (1) Generalized weakness Status: Acute 1. orthostatic hypotension - remains mildly orthostatic. will discontinue antihypertensives. Continue to hydrate. PRN Midodrine. TEDs if DVT sono negative. Will likely need to resume low dose ACEI in the future but can evaluate this as an outpatient. 2. Sinus tachy - resolved, likely secondary to volume status. 3. CAD - remains angina free 4. HLD - continue statin 5. ORIF - rehab as per PCP Subjective no lightheadedness, no palpitations, no chest pain, no dyspnea. Still somewhat weak but significant improvement from 2 weeks ago. Objective Vital Signs Date Time Temp Pulse Resp B/P (MAP) Pulse Ox O2 Delivery O2 Flow Rate FiO2 04/03/18 09:28 93 Room Air 04/03/18 05:43 97.3 93 20 153/80 (104) 95.0 Intake and Output 04/03/18 07:00 Intake Total 1829 ml Output Total 1150 ml Balance 679 ml Intake Oral 980 ml IV Total 849 ml Output Urine Total 1150 ml Abdomen: Normal bowel sounds, Soft, No tenderness Heart: Normal S1, Normal S2, Other (nogallops, clicks or rubs) Extremities: No cyanosis, No edema, Normal pulses General: Alert, Oriented X3, Cooperative, No acute distress HEENT: Atraumatic, EOMI, Mucous membr. moist/pink Lungs: Clear to auscultation, Normal air movement Neuro: Normal speech, Other (HULL, mild weakness remains and continues to require walker for balance assistance.) Psych/Mental Status: Mental status NL, Mood NL Review of Relevant I have reviewed the following items viviana (where applicable) has been applied. Labs Laboratory Tests Test 04/02/18 10:33 04/02/18 14:05 04/02/18 16:08 04/02/18 21:09 White Blood Count 7.2 x10^3/uL (4.0-11.0) Red Blood Count 3.88 x10^6/uL (4.30-5.70) Hemoglobin 11.9 g/dL (13.0-17.5) Hematocrit 35.9 % (39.0-53.0) Mean Corpuscular Volume 93 fL (79-100) Mean Corpuscular Hemoglobin 31 pg (25-35) Mean Corpuscular Hemoglobin Concent 33 g/dL (31-37) Red Cell Distribution Width 15.4 % (11.5-14.5) Platelet Count 307 x10^3/uL (140-400) Neutrophils (%) (Auto) 71 % (31-73) Lymphocytes (%) (Auto) 18 % (24-48) Monocytes (%) (Auto) 9 % (0-9) Eosinophils (%) (Auto) 2 % (0-3) Basophils (%) (Auto) 1 % (0-3) Neutrophils # (Auto) 5.1 x10^3uL (1.8-7.7) Lymphocytes # (Auto) 1.3 x10^3/uL (1.0-4.8) Monocytes # (Auto) 0.6 x10^3/uL (0.0-1.1) Eosinophils # (Auto) 0.1 x10^3/uL (0.0-0.7) Basophils # (Auto) 0.0 x10^3/uL (0.0-0.2) Prothrombin Time 10.1 SEC (9.4-11.4) Prothromb Time International Ratio 1.0 (0.9-1.1) D-Dimer (Darling) 2.46 mg/L (0.00-0.50) Sodium Level 139 mmol/L (136-145) Potassium Level 4.3 mmol/L (3.5-5.1) Chloride Level 103 mmol/L (98-107) Carbon Dioxide Level 26 mmol/L (21-32) Anion Gap 10 (6-14) Blood Urea Nitrogen 22 mg/dL (8-26) Creatinine 1.1 mg/dL (0.7-1.3) Estimated GFR (Cockcroft-Gault) 64.6 BUN/Creatinine Ratio 20 (6-20) Glucose Level 85 mg/dL (70-99) Lactic Acid Level 1.5 mmol/L (0.4-2.0) Calcium Level 8.9 mg/dL (8.5-10.1) Magnesium Level 1.8 mg/dL (1.8-2.4) Total Bilirubin 0.3 mg/dL (0.2-1.0) Aspartate Amino Transf (AST/SGOT) 13 U/L (15-37) Alanine Aminotransferase (ALT/SGPT) 16 U/L (16-63) Alkaline Phosphatase 117 U/L (46-116) Creatine Kinase 42 U/L (39-308) Troponin I Quantitative < 0.017 ng/mL (0-0.055) ZH-Gtb-M-Type Natriuretic Peptide 133 pg/mL (0-449) Total Protein 6.9 g/dL (6.4-8.2) Albumin 2.9 g/dL (3.4-5.0) Albumin/Globulin Ratio 0.7 (1.0-1.7) Lipase 26 U/L (73-393) Nasal Screen MRSA (PCR) Negative (Negative) Glucose (Fingerstick) 198 mg/dL (70-99) 201 mg/dL (70-99) Test 04/03/18 06:15 Sodium Level 139 mmol/L (136-145) Potassium Level 4.6 mmol/L (3.5-5.1) Chloride Level 106 mmol/L (98-107) Carbon Dioxide Level 24 mmol/L (21-32) Anion Gap 9 (6-14) Blood Urea Nitrogen 20 mg/dL (8-26) Creatinine 0.8 mg/dL (0.7-1.3) Estimated GFR (Cockcroft-Gault) 93.3 Glucose Level 127 mg/dL (70-99) Calcium Level 8.6 mg/dL (8.5-10.1) Medications Current Medications Iohexol (Omnipaque 300 Mg/ml) 75 ml 1X ONCE IV Last administered on 04/02/18at 11:41; Start 04/02/18 at 11:45; Stop 04/02/18 at 11:46; Status DC Ketorolac Tromethamine (Toradol 30mg Vial) 30 mg 1X ONCE IV Last administered on 04/02/18at 11:34; Start 04/02/18 at 11:45; Stop 04/02/18 at 11:46; Status DC Acetaminophen (Tylenol) 650 mg PRN Q4HRS PRN PO PAIN / TEMP; Start 04/02/18 at 15:30 Atorvastatin Calcium (Lipitor) 20 mg QHS PO Last administered on 04/02/18at 21: 32; Start 04/02/18 at 21:00 Clopidogrel Bisulfate (Plavix) 75 mg DAILY PO Last administered on 04/03/18 08 :11; Start 04/03/18 at 09:00 Insulin Glargine (Lantus) 20 units BID SQ Last administered on 04/03/18 08:16 ; Start 04/02/18 at 21:00 Lisinopril (Prinivil) 10 mg DAILY PO ; Start 04/03/18 at 09:00; Stop 04/03/18 at 09:00; Status DC Oxycodone HCl (Roxicodone) 5 mg PRN Q4HRS PRN PO PAIN Last administered on 04/03 05:37; Start 04/02/18 at 15:30 Potassium Chloride (Klor-Con) 20 meq BID PO Last administered on 04/02/18 21: 33; Start 04/02/18 at 21:00 Senna/Docusate Sodium (Senna Plus) 1 tab DAILY PO Last administered on 08:11; Start 04/03/18 at 09:00 Tramadol HCl (Ultram) 50 mg DAILY PO Last administered on 04/03/18 08:12; Start 04/03/18 at 09:00 Tamsulosin HCl (Flomax) 0.4 mg DAILY PO Last administered on 04/03/18 08:11; Start 04/03/18 at 09:00 Aspirin (Children'S Aspirin) 81 mg DAILYWBKFT PO Last administered on 08:11; Start 04/03/18 at 08:00 Insulin Human Lispro (HumaLOG) 5 units TIDWMEALS SQ Last administered on 08:15; Start 04/02/18 at 17:00 Amylase/Lipase/ Protease (Zenpep 10,000) 3 cap QHS PO Last administered on 04/02 21:33; Start 04/02/18 at 21:00 Amylase/Lipase/ Protease (Zenpep 10,000) 6 cap TIDAC PO Last administered on 07:47; Start 04/02/18 at 16:30 Metoclopramide HCl (Reglan) 5 mg TIDAC PRN PO NAUSEA/VOMITING Last administered on 04/03/18 08:11; Start 04/02/18 at 16:30 Multivitamins/ Calcium (Thera-M Plus) 1 tab DAILY PO Last administered on at 08:11; Start 04/03/18 at 09:00 Fish Oil (Fish Oil) 1,000 mg DAILY PO Last administered on 04/03/18at 08:11; Start 04/03/18 at 09:00 Pioglitazone HCl (Actos) 15 mg DAILY PO Last administered on 04/03/18at 08:11; Start 04/03/18 at 09:00 Polyethylene Glycol (miraLAX) 17 gm PRN DAILY PRN PO CONSTIPATION; Start at 09:00 Pantoprazole Sodium (Protonix) 40 mg DAILYAC PO Last administered on 04/03/18at 07:32; Start 04/03/18 at 07:30 Sodium Chloride 1,000 ml @ 75 mls/hr [id number] IV Last administered on at 05:08; Start 04/02/18 at 15:45 Midodrine (Proamatine) 5 mg PRN TID PRN PO HYPOTENSION; Start 04/02/18 at 16:00 Active Scripts Active Reported Reglan (Metoclopramide Hcl) 10 Mg Tablet 0.5 Tab PO TIDAC PRN Oxycodone Hcl Immed.release (Oxycodone Hcl) 5 Mg Tablet 5 Mg PO PRN Q4HRS PRN Klor-Con M20 (Potassium Chloride) 20 Meq Tab.er.prt 20 Meq PO BID Novolog Flexpen (Insulin Aspart) 100 Unit/1 Ml Insuln.pen 5 Unit SQ TIDWMEALS Lantus Solostar (Insulin Glargine,Hum.rec.anlog) 100 Unit/1 Ml Insuln.pen 20 Unit SQ BID Miralax (Polyethylene Glycol 3350) 17 Gm Powd.pack 17 Gm PO DAILY PRN Clopidogrel (Clopidogrel Bisulfate) 75 Mg Tablet 75 Mg PO DAILY Tramadol Hcl (Tramadol HCl) 50 Mg Tablet 50 Mg PO DAILY Rabeprazole Sodium 20 Mg Tablet.dr 20 Mg PO DAILY [facility] 3 1,000 Mg Softgel ([facility]a-3 Fatty Acids/Fish Oil) 1 Each Capsule 1 Each PO DAILY Multivitamins (Multivitamin) 1 Each Tablet 1 Tab PO DAILY Creon 36,000 Units Capsule (Lipase/Protease/Amylase) 1 Each Capsule.dr 1 Each PO HS Creon 36,000 Units Capsule (Lipase/Protease/Amylase) 1 Each Capsule.dr 2 Cap PO TIDAC Aspirin 81 Mg Tab.chew 81 Mg PO DAILY Alfuzosin Hcl 10 Mg Tab.er.24h 10 Mg PO DAILY Lisinopril 10 Mg Tablet 10 Mg PO DAILY Senna Plus Tablet (Sennosides/Docusate Sodium) 1 Each Tablet 1 Each PO DAILY Atorvastatin Calcium 20 Mg Tablet 20 Mg PO QHS Pioglitazone Hcl 15 Mg Tablet 15 Mg PO DAILY Tylenol (Acetaminophen) 325 Mg Tablet 650 Mg PO PRN Q4HRS PRN Vitals/I & O Vital Sign - Last 24 Hours 04/02/18 04/02/18 04/02/18 04/02/18 10:20 10:55 11:19 12:23 Temp 97.9 Pulse 108 103 92 94 Resp 20 20 20 18 B/P (MAP) 129/66 (87) 125/69 (87) 131/75 (93) Pulse Ox 96 96 96 96 O2 Delivery Room Air Room Air Room Air Room Air 04/02/18 04/02/18 04/02/18 04/02/18 12:53 13:27 13:32 13:35 Temp 97.8 Pulse 105 100 105 106 Resp 16 20 B/P (MAP) 114/61 (78) 123/75 (91) 97/61 (73) 91/58 (69) Pulse Ox 96 93 O2 Delivery Room Air Room Air 04/02/18 04/02/18 04/02/18 04/02/18 14:22 15:20 17:39 19:40 Temp 97.3 97.5 Pulse 94 120 Resp 20 20 B/P (MAP) 122/71 (88) 102/60 (74) Pulse Ox 95 96 O2 Delivery Room Air Room Air Room Air Room Air 04/02/18 04/02/18 04/03/18 04/03/18 21:13 23:05 05:37 05:43 Temp 98.3 97.3 Pulse 103 97 93 Resp 18 20 20 B/P (MAP) 123/67 (85) 135/78 (97) 153/80 (104) 103/64 (77) 106/67 (80) Pulse Ox 96 93 O2 Delivery Room Air Room Air Room Air O2 Flow Rate 95.0 04/03/18 04/03/18 04/03/18 04/03/18 07:11 07:49 08:12 09:28 Pulse Ox 93 93 93 O2 Delivery Room Air Room Air Room Air Room Air Intake and Output 04/02/18 04/02/18 04/03/18 15:00 23:00 07:00 Intake Total 680 ml 1149 ml Output Total 200 ml 950 ml Balance 480 ml 199 ml IVY CROW APRN Apr 03, 2018 10:01
--- NOTE | 2018-04-03 10:01 | PDOC2 ---
IVY CROW MOSAICIST 04/03/18 1001: CONSULT Date of Admission DATE: 04/02/18 TIME: 1800 Problem List Problems Medical Problems: (1) Generalized weakness Status: Acute History of Present Illness Mr Crow is a 77 year old male who normally follows with Dr Mancilla who presented from rehab with complaints of weakness and presyncope. He suffered a fall at home on the stairs last month with subsequent hip fracture and underwent ORIF on 03/03/18. He was doing physical therapy at rehab approximately 2 weeks ago on a cycling machine when he began to have increased, constant pain in the hip as well as chest pain, radiating to the back with associated dyspnea. He was admitted, evaluated had a minimal trop elevation, and discharged back to rehab on medical therapy. Yesterday he was again working on the cycling machine. On finishing he felt weak and lightheaded and blood pressure was apparently in the 60s systolic. on supine positioning it reportedly improved to just over 100mmhg systolic. He was transported to the ED for evaluation, admitted and consult was called. He is currently sitting at the bedside having dinner. He denies any chest pain, dyspnea, palpitations, lightheadedness or congestive symptoms. He denies any significant discomfort. He feels he still needs rehab but is much stronger and moving better than during his last admission. He has known triple vessel coronary disease with bypass. His most recent cath revealed totally occluded SVG to RCA and significant occlusion at the ostium of MYLES to LAD. LAD and RCA were successfully stented at that time. He had an MPI following that in 2016 which revealed a fixed anterior defect with surjit infarct ischemia. His most recent echo revealed normal LV function and wall motion. Past Medical History Past Medical History Left heart cath 08/15/2014 severe [place] 3 vessel s/p CABG occluded SVG to RCA 80% ostial MYLES PCI/stent to RCA PCI/ stent to LAD MPI 10/10/15 fixed anterior defect with minimal surjit infarct reversibility Echo 06/03/2017 LVEF 50-55% normal wall motion grade 1 diastolic dysfunction trace MR and TR PAS 26 mmHg echo 03/13/18 Left ventricle systolic function is normal. The Ejection Fraction is 55%. There is normal LV segmental wall motion. Trace mitral regurgitation. Trace tricuspid regurgitation. There is no evidence of significant pericardial effusion. Cardiovascular: AFIB, CAD, HTN, [place], hyperlipidemia GI: Constipation, GERD, Other (pancreatitis, pancreatic pseudocyst) Heme/Onc: Anemia NOS Musculoskeletal: Other (degenerative joint disease and sciatica) ENT: Other (hearing loss) Renal/: Benign prostatic enlarg. Endocrine: Diabetes, Hypothyroidism Past Surgical History ERCP, CABG, Other (ORIF right hip) Family History Cancer, Heart Disease Social History non smoker, no significant ETOH, no illicit drugs Current Medications Home Cardiac medications: Plavix 75mg asa 81 mg simvastatin 20 mg lisinopril 10 mg Current Medications Iohexol (Omnipaque 300 Mg/ml) 75 ml 1X ONCE IV Last administered on 04/02/18at 11:41; Start 04/02/18 at 11:45; Stop 04/02/18 at 11:46; Status DC Ketorolac Tromethamine (Toradol 30mg Vial) 30 mg 1X ONCE IV Last administered on 04/02/18at 11:34; Start 04/02/18 at 11:45; Stop 04/02/18 at 11:46; Status DC Acetaminophen (Tylenol) 650 mg PRN Q4HRS PRN PO PAIN / TEMP; Start 04/02/18 at 15:30 Atorvastatin Calcium (Lipitor) 20 mg QHS PO Last administered on 04/02/18at 21: 32; Start 04/02/18 at 21:00 Clopidogrel Bisulfate (Plavix) 75 mg DAILY PO Last administered on 04/03/18at 08 :11; Start 04/03/18 at 09:00 Insulin Glargine (Lantus) 20 units BID SQ Last administered on 04/03/18at 08:16 ; Start 04/02/18 at 21:00 Lisinopril (Prinivil) 10 mg DAILY PO ; Start 04/03/18 at 09:00; Stop 04/03/18 at 09:00; Status DC Oxycodone HCl (Roxicodone) 5 mg PRN Q4HRS PRN PO PAIN Last administered on 04/03at 05:37; Start 04/02/18 at 15:30 Potassium Chloride (Klor-Con) 20 meq BID PO Last administered on 04/02/18at 21: 33; Start 04/02/18 at 21:00 Senna/Docusate Sodium (Senna Plus) 1 tab DAILY PO Last administered on at 08:11; Start 04/03/18 at 09:00 Tramadol HCl (Ultram) 50 mg DAILY PO Last administered on 04/03/18 08:12; Start 04/03/18 at 09:00 Tamsulosin HCl (Flomax) 0.4 mg DAILY PO Last administered on 04/03/18 08:11; Start 04/03/18 at 09:00 Aspirin (Children'S Aspirin) 81 mg DAILYWBKFT PO Last administered on 08:11; Start 04/03/18 at 08:00 Insulin Human Lispro (HumaLOG) 5 units TIDWMEALS SQ Last administered on 08:15; Start 04/02/18 at 17:00 Amylase/Lipase/ Protease (Zenpep 10,000) 3 cap QHS PO Last administered on 04/02 21:33; Start 04/02/18 at 21:00 Amylase/Lipase/ Protease (Zenpep 10,000) 6 cap TIDAC PO Last administered on at 07:47; Start 04/02/18 at 16:30 Metoclopramide HCl (Reglan) 5 mg TIDAC PRN PO NAUSEA/VOMITING Last administered on 04/03/18 08:11; Start 04/02/18 at 16:30 Multivitamins/ Calcium (Thera-M Plus) 1 tab DAILY PO Last administered on 08:11; Start 04/03/18 at 09:00 Fish Oil (Fish Oil) 1,000 mg DAILY PO Last administered on 04/03/18 08:11; Start 04/03/18 at 09:00 Pioglitazone HCl (Actos) 15 mg DAILY PO Last administered on 04/03/18 08:11; Start 04/03/18 at 09:00 Polyethylene Glycol (miraLAX) 17 gm PRN DAILY PRN PO CONSTIPATION; Start at 09:00 Pantoprazole Sodium (Protonix) 40 mg DAILYAC PO Last administered on 04/03/18 07:32; Start 04/03/18 at 07:30 Sodium Chloride 1,000 ml @ 75 mls/hr [id number] IV Last administered on 05:08; Start 04/02/18 at 15:45 Midodrine (Proamatine) 5 mg PRN TID PRN PO HYPOTENSION; Start 04/02/18 at 16:00 Active Scripts Active Reported Reglan (Metoclopramide Hcl) 10 Mg Tablet 0.5 Tab PO TIDAC PRN Oxycodone Hcl Immed.release (Oxycodone Hcl) 5 Mg Tablet 5 Mg PO PRN Q4HRS PRN Klor-Con M20 (Potassium Chloride) 20 Meq Tab.er.prt 20 Meq PO BID Novolog Flexpen (Insulin Aspart) 100 Unit/1 Ml Insuln.pen 5 Unit SQ TIDWMEALS Lantus Solostar (Insulin Glargine,Hum.rec.anlog) 100 Unit/1 Ml Insuln.pen 20 Unit SQ BID Miralax (Polyethylene Glycol 3350) 17 Gm Powd.pack 17 Gm PO DAILY PRN Clopidogrel (Clopidogrel Bisulfate) 75 Mg Tablet 75 Mg PO DAILY Tramadol Hcl (Tramadol HCl) 50 Mg Tablet 50 Mg PO DAILY Rabeprazole Sodium 20 Mg Tablet.dr 20 Mg PO DAILY [place] 3 1,000 Mg Softgel ([place]-3 Fatty Acids/Fish Oil) 1 Each Capsule 1 Each PO DAILY Multivitamins (Multivitamin) 1 Each Tablet 1 Tab PO DAILY Creon 36,000 Units Capsule (Lipase/Protease/Amylase) 1 Each Capsule.dr 1 Each PO HS Creon Dr 36,000 Units Capsule (Lipase/Protease/Amylase) 1 Each Capsule. 2 Cap PO TIDAC Aspirin 81 Mg Tab.chew 81 Mg PO DAILY Alfuzosin Hcl 10 Mg Tab.er.24h 10 Mg PO DAILY Lisinopril 10 Mg Tablet 10 Mg PO DAILY Senna Plus Tablet (Sennosides/Docusate Sodium) 1 Each Tablet 1 Each PO DAILY Atorvastatin Calcium 20 Mg Tablet 20 Mg PO QHS Pioglitazone Hcl 15 Mg Tablet 15 Mg PO DAILY Tylenol (Acetaminophen) 325 Mg Tablet 650 Mg PO PRN Q4HRS PRN Allergies: Coded Allergies: No Known Drug Allergies (Unverified , 05/10/15) Review of System as per HPI or negative Physical Exam General: awake, alert, moving slowly with mild unsteadiness, has had visible weight loss. General: Alert, Oriented X3, Cooperative, No acute distress HEENT: Atraumatic, EOMI, Mucous membr. moist/pink Lungs: Clear to auscultation, Normal air movement Heart: Normal S1, Normal S2, Other (tachycardic, no gallops, clicks or rubs) Abdomen: Normal bowel sounds, Soft, No tenderness Extremities: No cyanosis, No edema, Normal pulses Neuro: Normal speech, Strength at 5/5 X4 ext, Cranial nerves 3-12 NL Psych/Mental Status: Mental status NL, Mood NL VITALS mildly hypotensive with systolic 90s, orthostatic pressures early afternoon with >30 mmHg drop on standing tele sinus tachycardia 120's when sitting upright, down to 105 with supine position. Vital Signs Date Time Temp Pulse Resp B/P (MAP) Pulse Ox O2 Delivery O2 Flow Rate FiO2 04/03/18 09:28 93 Room Air 04/03/18 05:43 97.3 93 20 153/80 (104) 95.0 Labs Laboratory Tests Test 04/02/18 10:33 04/02/18 14:05 04/02/18 16:08 04/02/18 21:09 White Blood Count 7.2 x10^3/uL (4.0-11.0) Red Blood Count 3.88 x10^6/uL (4.30-5.70) Hemoglobin 11.9 g/dL (13.0-17.5) Hematocrit 35.9 % (39.0-53.0) Mean Corpuscular Volume 93 fL (79-100) Mean Corpuscular Hemoglobin 31 pg (25-35) Mean Corpuscular Hemoglobin Concent 33 g/dL (31-37) Red Cell Distribution Width 15.4 % (11.5-14.5) Platelet Count 307 x10^3/uL (140-400) Neutrophils (%) (Auto) 71 % (31-73) Lymphocytes (%) (Auto) 18 % (24-48) Monocytes (%) (Auto) 9 % (0-9) Eosinophils (%) (Auto) 2 % (0-3) Basophils (%) (Auto) 1 % (0-3) Neutrophils # (Auto) 5.1 x10^3uL (1.8-7.7) Lymphocytes # (Auto) 1.3 x10^3/uL (1.0-4.8) Monocytes # (Auto) 0.6 x10^3/uL (0.0-1.1) Eosinophils # (Auto) 0.1 x10^3/uL (0.0-0.7) Basophils # (Auto) 0.0 x10^3/uL (0.0-0.2) Prothrombin Time 10.1 SEC (9.4-11.4) Prothromb Time International Ratio 1.0 (0.9-1.1) D-Dimer (Darling) 2.46 mg/L (0.00-0.50) Sodium Level 139 mmol/L (136-145) Potassium Level 4.3 mmol/L (3.5-5.1) Chloride Level 103 mmol/L (98-107) Carbon Dioxide Level 26 mmol/L (21-32) Anion Gap 10 (6-14) Blood Urea Nitrogen 22 mg/dL (8-26) Creatinine 1.1 mg/dL (0.7-1.3) Estimated GFR (Cockcroft-Gault) 64.6 BUN/Creatinine Ratio 20 (6-20) Glucose Level 85 mg/dL (70-99) Lactic Acid Level 1.5 mmol/L (0.4-2.0) Calcium Level 8.9 mg/dL (8.5-10.1) Magnesium Level 1.8 mg/dL (1.8-2.4) Total Bilirubin 0.3 mg/dL (0.2-1.0) Aspartate Amino Transf (AST/SGOT) 13 U/L (15-37) Alanine Aminotransferase (ALT/SGPT) 16 U/L (16-63) Alkaline Phosphatase 117 U/L (46-116) Creatine Kinase 42 U/L (39-308) Troponin I Quantitative < 0.017 ng/mL (0-0.055) BI-Ljx-W-Type Natriuretic Peptide 133 pg/mL (0-449) Total Protein 6.9 g/dL (6.4-8.2) Albumin 2.9 g/dL (3.4-5.0) Albumin/Globulin Ratio 0.7 (1.0-1.7) Lipase 26 U/L (73-393) Nasal Screen MRSA (PCR) Negative (Negative) Glucose (Fingerstick) 198 mg/dL (70-99) 201 mg/dL (70-99) Test 04/03/18 06:15 Sodium Level 139 mmol/L (136-145) Potassium Level 4.6 mmol/L (3.5-5.1) Chloride Level 106 mmol/L (98-107) Carbon Dioxide Level 24 mmol/L (21-32) Anion Gap 9 (6-14) Blood Urea Nitrogen 20 mg/dL (8-26) Creatinine 0.8 mg/dL (0.7-1.3) Estimated GFR (Cockcroft-Gault) 93.3 Glucose Level 127 mg/dL (70-99) Calcium Level 8.6 mg/dL (8.5-10.1) Images CT head - Impression: Stable findings, no evidence of acute intracranial hemorrhage or mass effect. CXR - IMPRESSION: No acute cardiopulmonary abnormality is detected. CTA chest - IMPRESSION: 1. No evidence of pulmonary embolism. 2. Increased linear densities in both lungs, stable, likely fibrosis or atelectasis. 3. Apparent gastric wall thickening, most likely just due to incomplete distention. 4. Incompletely visualized cystic lesion upper pole right kidney is re-demonstrated. EKG - pending Assessment/Plan 1. orthostatic hypotension - stop lisinopril and encourage fluids. BRIDGER hose. Midodrine PRN. 2. CAD/CABG status - he remains angina free. recent demand mediated NSTEMI with minimal trop elevation. LV function and wall motion normal by echo at that time. 3. elevated d dimer - negative for PE, elevation likely secondary to recent surgery. consider lower extremity venous duplex. 4. recent ORIF - rehab as per PCP 5. HLD - statin KACY MANCILLA MD 04/03/18 7126: CONSULT Assessment/Plan Patient seen and examined. Agree with [employer]'s assessment and plan. Agree with holding lisinopril and hydrating intravenously for orthostatic hypotension CAD status clinically stable Sinus tachycardia physiologic, currently resolved Continue rehabilitation for recent ORIF hip fracture Thank you for your consultation IVY CROW APRN Apr 03, 2018 10:01 KACY MANCILLA MD Apr 03, 2018 17:16
[2018-04-03 10:11] VITALS: BP 109/64
[2018-04-03 10:13] VITALS: BP 89/56
--- NOTE | 2018-04-03 15:14 | RAD ---
Bilateral lower extremity venous ultrasound, 04/03/2018: History: Elevated d-dimer Duplex evaluation of the deep veins in the lower extremities was performed including grayscale, color-flow and spectral Doppler analysis. The femoral and popliteal veins demonstrate normal compressibility and normal responses to distal augmentation maneuvers. Color imaging of those vessels shows no evidence of intraluminal clot. The visualized deep veins in both calves are patent. IMPRESSION: There is no sonographic evidence of deep vein thrombosis in either lower extremity. Electronically signed by: Miles Casillas MD (04/03/2018 3:11 PM) [facility]
[2018-04-03 15:19] VITALS: BP 138/71
[2018-04-03 19:52] VITALS: BP_SYST 120; BP_SYST 135; BP_SYST 145; BP_DIAS 71; BP_DIAS 74; BP_DIAS 75
[2018-04-03] MEDS: ATORVASTATIN CALCIUM 20 MG TABLET PO SCH (21:27)
[2018-04-03 22:49] VITALS: BP 145/77
[2018-04-04] VITALS (7 sets, daily range): BP systolic 105–156; BP diastolic 69–86
--- NOTE | 2018-04-04 00:59 | PN ---
DATE: 04/03/2018 SUBJECTIVE: The patient is resting slightly propped up in bed, in no apparent distress. On questioning him, he denies any complaint. He apparently has been up and about, walking with a walker with physical therapy. He continued to have postural hypertension, although he is asymptomatic. He was seen by the Cardiology team and his lisinopril was discontinued. He was started on IV fluid. PHYSICAL EXAMINATION: GENERAL: When I examined him today, he looked pale, but no jaundice, cyanosis, or thyromegaly. No jugular venous distention. No lower limb edema. VITAL SIGNS: His heart rate was 102, blood pressure was 89/56, his temperature was 97.3, respiratory rate 20, and oxygen saturation was 95%. HEAD, EYES, EARS, NOSE AND THROAT: Showed normocephalic, atraumatic. NECK: Supple. HEART: Showed normal first and second heart sounds with no gallop, rub, or murmur. CHEST: Clear to auscultation. No crepitation or rhonchi. ABDOMEN: Distended, soft, nontender. NEUROLOGIC: He was awake, alert, responding appropriately. All cranial nerves intact. He ambulates with a walker. His intake over the last 24 hours was 1830, output was 1150. LABORATORY DATA: His lab work as of this morning showed a serum sodium 139, potassium 4.6, chloride 106, bicarbonate 24, anion gap of 9, BUN 20, creatinine was 0.8, estimated GFR was 93 mL per minute. His glucose was 127 and calcium was 8.6. ASSESSMENT AND PLAN: 1. Orthostatic hypotension. The patient continued to have hypotension when he stands up. His lisinopril was discontinued. We will continue with gentle hydration. Doppler ultrasound of both lower extremities was ordered before starting him on BRIDGER hoses. 2. Coronary artery disease. The patient remains angina free 3. Hyperlipidemia for which he is on statin and he has recent right hip fracture, status post open reduction and internal fixation, for which he will continue with physical and occupational therapy. TROY JACKSON MD DR: RAUL/emma JOB#: [id number] / [id number]
[2018-04-04] MEDS: oxyCODONE IR 5 MG TABLET PO PRN ×2 (01:17→10:16)
[2018-04-04 06:18] LABS: BASO # 0.1 x10^3/uL (0.0-0.2); BASO % 1 % (0-3); EOS # 0.2 x10^3/uL (0.0-0.7); EOS % 3 % (0-3); HEMATOCRIT 35.1 % (39.0-53.0); HEMOGLOBIN 11.8 g/dL (13.0-17.5); LYMPH # 1.5 x10^3/uL (1.0-4.8); LYMPH % 21 % (24-48); MEAN CORPUSCULAR HEMOGLOBIN 31 pg (25-35); MEAN CORPUSCULAR HGB CONC 34 g/dL (31-37); MEAN CORPUSCULAR VOLUME 92 fL (79-100); MONO # 0.6 x10^3/uL (0.0-1.1); MONO % 9 % (0-9); NEUT # 4.6 x10^3uL (1.8-7.7); NEUT % 67 % (31-73); PLATELET COUNT 278 x10^3/uL (140-400); RED BLOOD COUNT 3.83 x10^6/uL (4.30-5.70); RED CELL DISTRIBUTION WIDTH 15.4 % (11.5-14.5); WHITE BLOOD COUNT 6.9 x10^3/uL (4.0-11.0)
[2018-04-04 06:41] LABS: ALBUMIN 2.9 g/dL (3.4-5.0); ALBUMIN/GLOBULIN RATIO 0.9 (1.0-1.7); CALCIUM 8.9 mg/dL (8.5-10.1); CREATININE 0.7 mg/dL (0.7-1.3); GFR 108.8; POTASSIUM 4.2 mmol/L (3.5-5.1); TOTAL BILIRUBIN 0.3 mg/dL (0.2-1.0); TOTAL PROTEIN 6.3 g/dL (6.4-8.2)
[2018-04-04] MEDS: INSULIN GLARGINE 300 UNITS/3 ML INSULN.PEN. SQ SCH (07:57)
[2018-04-04] MEDS: INSULIN LISPRO 300 UNITS/3 ML INSULN.PEN. SQ SCH ×2 (07:57→12:26)
[2018-04-04] MEDS: PANTOPRAZOLE 40 MG TABLET. PO SCH (07:59)
[2018-04-04] MEDS: LIPASE/PROTEAS/AMYLAS 10/32/42 CAPSULE.DR. PO SCH ×2 (07:59→11:49)
[2018-04-04] MEDS ORDERED: DEXTROSE 50% 25 GM / 50ML DISP.SYRIN. IV PRN (08:30)
[2018-04-04] MEDS: OMEGA-3 FATTY ACIDS/FISH OIL 1,000 MG CAPSULE. PO SCH (08:55)
[2018-04-04] MEDS: SENNOSIDES/DOCUSATE 8.6/50MG TABLET. PO SCH (08:55)
[2018-04-04] MEDS: TAMSULOSIN 0.4 MG CAP.ER.24H. PO SCH (08:55)
[2018-04-04] MEDS: POTASSIUM CHLORIDE 20 MEQ TABLET.ER. PO SCH (08:55)
[2018-04-04] MEDS: ASPIRIN 81 MG TAB.CHEW PO SCH (08:56)
[2018-04-04] MEDS: PIOGLITAZONE 15 MG TABLET. PO SCH (08:56)
[2018-04-04] MEDS: traMADol 50 MG TABLET PO SCH (08:56)
[2018-04-04] MEDS: CLOPIDOGREL BISULFATE 75 MG TABLET PO SCH (08:56)
[2018-04-04] MEDS: MULTIVITAMIN with MINERAL TABLET. PO SCH (08:56)
[2018-04-04] MEDS: IV NORMAL SALINE 1,000ML 1,000 ML IV SCH (08:59)
--- NOTE | 2018-04-04 12:17 | PDOC ---
PROGRESS NOTES Diagnosis Problem Problems Medical Problems: (1) Generalized weakness Status: Acute Assessment 1. orthostatic hypotension -significantly improved since admission with intravenous hydration and holding antihypertensives. 2. Sinus tachy - resolved, likely secondary to volume status. 3. CAD -stable and chest pain-free 4. HLD - continue statin 5. ORIF - rehab as per PCP Subjective Patient feeling much better. Denied any dizziness. Objective Vital Signs Date Time Temp Pulse Resp B/P (MAP) Pulse Ox O2 Delivery O2 Flow Rate FiO2 04/04/18 11:12 97 Room Air 04/04/18 10:38 97.4 109 20 137/86 (103) 04/03/18 05:43 95.0 Intake and Output 04/04/18 07:00 Intake Total 1570 ml Output Total 3000 ml Balance -1430 ml Intake Oral 1570 ml Output Urine Total 3000 ml # Bowel Movements 1 Abdomen: Soft, No tenderness Heart: Regular rate General: Alert, Oriented X3 HEENT: Atraumatic Lungs: Clear to auscultation Neck: Supple Psych/Mental Status: Mood NL Review of Relevant I have reviewed the following items viviana (where applicable) has been applied. Labs Laboratory Tests Test 04/02/18 14:05 04/02/18 16:08 04/02/18 21:09 04/03/18 06:15 Nasal Screen MRSA (PCR) Negative (Negative) Glucose (Fingerstick) 198 mg/dL (70-99) 201 mg/dL (70-99) Sodium Level 139 mmol/L (136-145) Potassium Level 4.6 mmol/L (3.5-5.1) Chloride Level 106 mmol/L (98-107) Carbon Dioxide Level 24 mmol/L (21-32) Anion Gap 9 (6-14) Blood Urea Nitrogen 20 mg/dL (8-26) Creatinine 0.8 mg/dL (0.7-1.3) Estimated GFR (Cockcroft-Gault) 93.3 Glucose Level 127 mg/dL (70-99) Calcium Level 8.6 mg/dL (8.5-10.1) Test 04/03/18 12:19 04/03/18 16:43 04/03/18 19:15 04/04/18 05:50 Glucose (Fingerstick) 113 mg/dL (70-99) 163 mg/dL (70-99) 159 mg/dL (70-99) White Blood Count 6.9 x10^3/uL (4.0-11.0) Red Blood Count 3.83 x10^6/uL (4.30-5.70) Hemoglobin 11.8 g/dL (13.0-17.5) Hematocrit 35.1 % (39.0-53.0) Mean Corpuscular Volume 92 fL (79-100) Mean Corpuscular Hemoglobin 31 pg (25-35) Mean Corpuscular Hemoglobin Concent 34 g/dL (31-37) Red Cell Distribution Width 15.4 % (11.5-14.5) Platelet Count 278 x10^3/uL (140-400) Neutrophils (%) (Auto) 67 % (31-73) Lymphocytes (%) (Auto) 21 % (24-48) Monocytes (%) (Auto) 9 % (0-9) Eosinophils (%) (Auto) 3 % (0-3) Basophils (%) (Auto) 1 % (0-3) Neutrophils # (Auto) 4.6 x10^3uL (1.8-7.7) Lymphocytes # (Auto) 1.5 x10^3/uL (1.0-4.8) Monocytes # (Auto) 0.6 x10^3/uL (0.0-1.1) Eosinophils # (Auto) 0.2 x10^3/uL (0.0-0.7) Basophils # (Auto) 0.1 x10^3/uL (0.0-0.2) Sodium Level 142 mmol/L (136-145) Potassium Level 4.2 mmol/L (3.5-5.1) Chloride Level 105 mmol/L (98-107) Carbon Dioxide Level 23 mmol/L (21-32) Anion Gap 14 (6-14) Blood Urea Nitrogen 16 mg/dL (8-26) Creatinine 0.7 mg/dL (0.7-1.3) Estimated GFR (Cockcroft-Gault) 108.8 BUN/Creatinine Ratio 23 (6-20) Glucose Level 53 mg/dL (70-99) Calcium Level 8.9 mg/dL (8.5-10.1) Total Bilirubin 0.3 mg/dL (0.2-1.0) Aspartate Amino Transf (AST/SGOT) 18 U/L (15-37) Alanine Aminotransferase (ALT/SGPT) 17 U/L (16-63) Alkaline Phosphatase 128 U/L (46-116) Total Protein 6.3 g/dL (6.4-8.2) Albumin 2.9 g/dL (3.4-5.0) Albumin/Globulin Ratio 0.9 (1.0-1.7) Test 04/04/18 07:31 04/04/18 07:38 04/04/18 11:16 Glucose (Fingerstick) 33 mg/dL (70-99) 214 mg/dL (70-99) Glucose Level 59 mg/dL (70-99) Microbiology 04/02/18 Blood Culture - Preliminary, Resulted NO GROWTH AFTER 2 DAYS... Medications Current Medications Iohexol (Omnipaque 300 Mg/ml) 75 ml 1X ONCE IV Last administered on 04/02/18at 11:41; Start 04/02/18 at 11:45; Stop 04/02/18 at 11:46; Status DC Ketorolac Tromethamine (Toradol 30mg Vial) 30 mg 1X ONCE IV Last administered on 04/02/18at 11:34; Start 04/02/18 at 11:45; Stop 04/02/18 at 11:46; Status DC Acetaminophen (Tylenol) 650 mg PRN Q4HRS PRN PO PAIN / TEMP; Start 04/02/18 at 15:30 Atorvastatin Calcium (Lipitor) 20 mg QHS PO Last administered on 04/03/18at 21: 27; Start 04/02/18 at 21:00 Clopidogrel Bisulfate (Plavix) 75 mg DAILY PO Last administered on 04/04/18at 08 :56; Start 04/03/18 at 09:00 Insulin Glargine (Lantus) 20 units BID SQ Last administered on 04/03/18at 21:30 ; Start 04/02/18 at 21:00; Stop 04/04/18 at 08:24; Status DC Lisinopril (Prinivil) 10 mg DAILY PO ; Start 04/03/18 at 09:00; Stop 04/03/18 at 09:00; Status DC Oxycodone HCl (Roxicodone) 5 mg PRN Q4HRS PRN PO PAIN Last administered on 04/04 10:16; Start 04/02/18 at 15:30 Potassium Chloride (Klor-Con) 20 meq BID PO Last administered on 04/04/18 08: 55; Start 04/02/18 at 21:00 Senna/Docusate Sodium (Senna Plus) 1 tab DAILY PO Last administered on 08:55; Start 04/03/18 at 09:00 Tramadol HCl (Ultram) 50 mg DAILY PO Last administered on 04/04/18 08:56; Start 04/03/18 at 09:00 Tamsulosin HCl (Flomax) 0.4 mg DAILY PO Last administered on 04/04/18 08:55; Start 04/03/18 at 09:00 Aspirin (Children'S Aspirin) 81 mg DAILYWBKFT PO Last administered on 08:56; Start 04/03/18 at 08:00 Insulin Human Lispro (HumaLOG) 5 units TIDWMEALS SQ Last administered on 17:03; Start 04/02/18 at 17:00 Amylase/Lipase/ Protease (Zenpep 10,000) 3 cap QHS PO Last administered on 04/03 21:27; Start 04/02/18 at 21:00 Amylase/Lipase/ Protease (Zenpep 10,000) 6 cap TIDAC PO Last administered on 11:49; Start 04/02/18 at 16:30 Metoclopramide HCl (Reglan) 5 mg TIDAC PRN PO NAUSEA/VOMITING Last administered on 04/03/18 08:11; Start 04/02/18 at 16:30 Multivitamins/ Calcium (Thera-M Plus) 1 tab DAILY PO Last administered on 08:56; Start 04/03/18 at 09:00 Fish Oil (Fish Oil) 1,000 mg DAILY PO Last administered on 04/04/18 08:55; Start 04/03/18 at 09:00 Pioglitazone HCl (Actos) 15 mg DAILY PO Last administered on 04/04/18 08:56; Start 04/03/18 at 09:00 Polyethylene Glycol (miraLAX) 17 gm PRN DAILY PRN PO CONSTIPATION; Start at 09:00 Pantoprazole Sodium (Protonix) 40 mg DAILYAC PO Last administered on 04/04/18at 07:59; Start 04/03/18 at 07:30 Sodium Chloride 1,000 ml @ 75 mls/hr [id number] IV Last administered on at 08:59; Start 04/02/18 at 15:45 Midodrine (Proamatine) 5 mg PRN TID PRN PO HYPOTENSION; Start 04/02/18 at 16:00 Dextrose 12.5 gm PRN Q15MIN PRN IV SEE COMMENTS; Start 04/04/18 at 08:30 Insulin Glargine (Lantus) 10 units HS SQ ; Start 04/04/18 at 21:00 Active Scripts Active Reported Reglan (Metoclopramide Hcl) 10 Mg Tablet 0.5 Tab PO TIDAC PRN Oxycodone Hcl Immed.release (Oxycodone Hcl) 5 Mg Tablet 5 Mg PO PRN Q4HRS PRN Klor-Con M20 (Potassium Chloride) 20 Meq Tab.er.prt 20 Meq PO BID Novolog Flexpen (Insulin Aspart) 100 Unit/1 Ml Insuln.pen 5 Unit SQ TIDWMEALS Lantus Solostar (Insulin Glargine,Hum.rec.anlog) 100 Unit/1 Ml Insuln.pen 20 Unit SQ BID Miralax (Polyethylene Glycol 3350) 17 Gm Powd.pack 17 Gm PO DAILY PRN Clopidogrel (Clopidogrel Bisulfate) 75 Mg Tablet 75 Mg PO DAILY Tramadol Hcl (Tramadol HCl) 50 Mg Tablet 50 Mg PO DAILY Rabeprazole Sodium 20 Mg Tablet.dr 20 Mg PO DAILY [place] 3 1,000 Mg Softgel ([place]-3 Fatty Acids/Fish Oil) 1 Each Capsule 1 Each PO DAILY Multivitamins (Multivitamin) 1 Each Tablet 1 Tab PO DAILY Creon 36,000 Units Capsule (Lipase/Protease/Amylase) 1 Each Capsule.dr 1 Each PO HS Creon 36,000 Units Capsule (Lipase/Protease/Amylase) 1 Each Capsule.dr 2 Cap PO TIDAC Aspirin 81 Mg Tab.chew 81 Mg PO DAILY Alfuzosin Hcl 10 Mg Tab.er.24h 10 Mg PO DAILY Lisinopril 10 Mg Tablet 10 Mg PO DAILY Senna Plus Tablet (Sennosides/Docusate Sodium) 1 Each Tablet 1 Each PO DAILY Atorvastatin Calcium 20 Mg Tablet 20 Mg PO QHS Pioglitazone Hcl 15 Mg Tablet 15 Mg PO DAILY Tylenol (Acetaminophen) 325 Mg Tablet 650 Mg PO PRN Q4HRS PRN Vitals/I & O Vital Sign - Last 24 Hours 04/03/18 04/03/18 04/03/18 04/03/18 15:19 19:52 20:00 22:49 Temp 97.6 98.0 98.3 Pulse 94 113 105 Resp 20 20 18 B/P (MAP) 138/71 (93) 145/75 (98) 145/77 (99) 120/71 (87) 135/74 (94) Pulse Ox 94 96 93 O2 Delivery Room Air Room Air Room Air Room Air 04/04/18 04/04/18 04/04/18 04/04/18 01:17 02:17 05:29 08:00 Temp 98.0 Pulse 97 Resp 18 20 18 B/P (MAP) 149/76 (100) Pulse Ox 93 O2 Delivery Room Air Room Air Room Air 04/04/18 04/04/18 04/04/18 10:16 10:38 11:12 Temp 97.4 Pulse 109 Resp 20 B/P (MAP) 137/86 (103) Pulse Ox 93 97 97 O2 Delivery Room Air Room Air Room Air Intake and Output 04/03/18 04/03/18 04/04/18 15:00 23:00 07:00 Intake Total 200 ml 970 ml 400 ml Output Total 1225 ml 1775 ml Balance 200 ml -255 ml -1375 ml KACY MANCILLA MD Apr 04, 2018 12:17
[2018-04-04] MEDS ORDERED: MIDO5TAB PO (12:51)
[2018-04-04] MEDS ORDERED: INSU100I13 SQ (12:52)
--- NOTE | 2018-04-04 13:00 | DISCH ---
DISCHARGE ORDERS CONDITION AT DISCHARGE: Stable Code Status: Full SNF STAY <30 DAYS: Yes POST DISCHARGE ORDERS: ACTIVITY ORDERS: Activity as tolerated DIET AFTER DISCHARGE: ADA WOUND/INCISION CARE: Change dressing CHECKS AFTER DISCHARGE: CHECKS AFTER DISCHARGE: Check blood sugar, ac/hs TREATMENT/EQUIPMENT ORDERS: ADAPTIVE EQUIPMENT NEEDED: Walker DISCHARGE MEDICATIONS: Home Meds Reported Medications Metoclopramide Hcl (REGLAN) 10 Mg Tablet, 0.5 TAB PO TIDAC PRN for NAUSEA/ VOMITING, #90 TAB 04/02/18 Oxycodone Hcl (OXYCODONE HCL IMMED.RELEASE ) 5 Mg Tablet, 5 MG PO PRN Q4HRS PRN for PAIN, TAB 04/02/18 Potassium Chloride (KLOR-CON M20) 20 Meq Tab.er.prt, 20 MEQ PO BID for supplement, TAB.SR 04/02/18 Insulin Aspart (NOVOLOG FLEXPEN) 100 Unit/1 Ml Insuln.pen, 5 UNIT SQ TIDWMEALS for diabetes, SYR 03/12/18 Insulin Glargine,Hum.rec.anlog (LANTUS SOLOSTAR) 100 Unit/1 Ml Insuln.pen, 20 UNIT SQ BID for diabetes, #15 ML 3 Refills 03/12/18 Polyethylene Glycol 3350 (MIRALAX) 17 Gm Powd.pack, 17 GM PO DAILY PRN for CONSTIPATION, PKT 03/12/18 Clopidogrel Bisulfate (CLOPIDOGREL) 75 Mg Tablet, 75 MG PO DAILY for CAD 03/12/18 Tramadol Hcl (TRAMADOL HCL) 50 Mg Tablet, 50 MG PO DAILY for pancreas pain, TAB 03/12/18 Rabeprazole Sodium (RABEPRAZOLE SODIUM) 20 Mg Tablet.dr, 20 MG PO DAILY for GERD 03/12/18 [place]-3 Fatty Acids/Fish Oil (OMEGA 3 1,000 MG SOFTGEL) 1 Each Capsule, 1 EACH PO DAILY for supplement, CAP 03/12/18 Multivitamin (MULTIVITAMINS) 1 Each Tablet, 1 TAB PO DAILY for supplement, #30 TAB 2 Refills 03/12/18 Lipase/Protease/Amylase (KELSIE ESTRADA 36,000 UNITS CAPSULE) 1 Each Capsule.dr, 1 EACH PO HS for pancreas, CAP 03/12/18 Lipase/Protease/Amylase (KELSIE ESTRADA 36,000 UNITS CAPSULE) 1 Each Capsule.dr, 2 CAP PO TIDAC for pancreas 03/12/18 Aspirin (ASPIRIN) 81 Mg Tab.chew, 81 MG PO DAILY for CAD, TAB 03/12/18 Alfuzosin Hcl (ALFUZOSIN HCL) 10 Mg Tab.er.24h, 10 MG PO DAILY for BPH 03/12/18 Lisinopril (LISINOPRIL) 10 Mg Tablet, 10 MG PO DAILY for FOR HYPERTENSION, #30 TAB 0 Refills 03/12/18 Sennosides/Docusate Sodium (SENNA PLUS TABLET) 1 Each Tablet, 1 EACH PO DAILY for constipation, TAB 03/12/18 Atorvastatin Calcium (ATORVASTATIN CALCIUM) 20 Mg Tablet, 20 MG PO QHS for high cholesterol, #30 TAB 0 Refills 03/12/18 Pioglitazone Hcl (PIOGLITAZONE HCL) 15 Mg Tablet, 15 MG PO DAILY for type II diabetes 03/12/18 Acetaminophen (TYLENOL) 325 Mg Tablet, 650 MG PO PRN Q4HRS PRN for PAIN / TEMP, TAB 03/12/18 TROY JACKSON MD Apr 04, 2018 13:00
--- NOTE | 2018-04-04 17:50 | DS ---
DATE OF DISCHARGE: 04/04/2018 HOSPITAL COURSE: The patient is a 77-year-old male patient who yet again came with another syncopal episode while he was on a stationary bike at [facility], during which his blood pressure dropped down to 60 systolic, although there was some doubt about the accuracy of blood pressure measurement. He was admitted and we have been checking his orthostatic and he clearly has marked postural hypotension and we did discontinue his lisinopril, started him on midodrine and also IV fluid. He has been receiving normal saline over the last 3 days. Unfortunately, he continued to have marked postural hypotension, although he was asymptomatic and a decision was made to discharge him back to [facility]. We have scheduled his midodrine at 5 mg 3 times a day. He was seen in consultation by the Cardiology and did not plan to do any further workup. When I examined him this afternoon, he was sitting comfortably in his chair, eating his lunch, in no apparent distress. On questioning him, he denied any complaint. The nursing staff stated that he continued to have marked postural hypotension, although he was asymptomatic and has been walking around with his walker without any difficulty. He has definitely no syncopal episode while he was here. PHYSICAL EXAMINATION: GENERAL: On examining him this afternoon, he looked well and was clearly in no apparent respiratory distress. No pallor, jaundice, cyanosis, or thyromegaly. No jugular venous distension. No limb edema. VITAL SIGNS: His heart rate was 112, blood pressure was 126/77, temperature was 97, respiratory rate was 18, and oxygen saturation was 98% on room air. HEAD, EYES, EARS, NOSE, AND THROAT: Showed normocephalic, atraumatic. NECK: Supple. HEART: Showed normal first and second heart sounds. No gallop, rub, or murmur. CHEST: Clear to auscultation. No crepitation or rhonchi. ABDOMEN: Distended, soft, nontender. NEUROLOGIC: He was awake, alert, responding appropriately. All cranial nerves intact. He moves extremities without difficulty. He ambulates with a walker without any assistance. LABORATORY DATA: This morning showed that his serum sodium was 142, potassium 4.2, chloride 105, bicarbonate 23, anion gap of 14, BUN 16, creatinine 0.7, estimated GFR was 108 mL per minute. His glucose, had an episode of hypoglycemia this morning. We cut down his Lantus from 20 units twice a day to 10 units at bedtime. His calcium was 8.9. Total bilirubin, AST, ALT were normal. Alkaline phosphatase slightly elevated. Total protein 6.3, albumin 2.9. His prothrombin time was 10.1, INR of 1, D-dimer was 2.46. CT angio of the chest showed no evidence of pulmonary emboli. Has increased linear opacities in both lungs; nice, stable likely fibrosis, atelectasis apparent; gastric wall thickening more likely due to just incomplete distention, incompletely visualized cystic lesion at the upper pole of the right kidney. DISCHARGE MEDICATIONS: The patient was discharged back to [place] to continue on his Lantus insulin 10 units at bedtime and midodrine 5 mg 3 times a day for postural hypotension. He should continue on alfuzosin 10 mg daily, Tylenol 650 mg every 4 hours, aspirin 81 mg once a day, atorvastatin calcium 20 mg at bedtime, Plavix 75 mg once a day, NovoLog insulin 5 units before meals, Creon 36,000 before meals and Creon 36,000 at bedtime, metoclopramide 5 mg before meals, multivitamin 1 tablet once a day, omega-3 fatty acid 1 tablet once a day, oxycodone 5 mg every 4 hours as needed, pioglitazone 15 mg daily, polyethylene glycol 17 g daily, potassium chloride 20 mEq twice a day, rabeprazole 20 mg once a day, Senna-S 1 tablet once a day, tramadol 50 mg daily. FINAL DISCHARGE DIAGNOSES: 1. Recurrent syncopal episode due to orthostatic hypotension, likely due to diabetic autonomic neuropathy. We have discontinued his lisinopril. He is now on midodrine. We will also order BRIDGER hose and perhaps abdominal binder if necessary. 2. Sinus tachycardia. 3. Coronary artery disease, stable, chest pain free. 4. Hyperlipidemia, on statin. 5. Recent hip fracture, status post open reduction and internal fixation, to continue with rehabilitation process. TROY JACKSON MD DR: RAUL/emma JOB#: [id number] / [id number]
[2018-04-04] MEDS ORDERED: INSULIN GLARGINE 300 UNITS/3 ML INSULN.PEN. SQ SCH (21:00)
== END 2018-04-04 16:15 | DRG 312 ==
LOC: ER 10:15 → 1 SOUTH 12:57
PROVIDERS: ADMIT Internal Medicine; ATTEND Internal Medicine
DX: I95.1 Orthostatic hypotension (principal); J98.11 Atelectasis; K86.1 Other chronic pancreatitis; E11.43 Type 2 diabetes mellitus with diabetic autonomic (poly)neuropathy; D64.9 Anemia, unspecified; E03.9 Hypothyroidism, unspecified; E78.00 Pure hypercholesterolemia, unspecified; E78.5 Hyperlipidemia, unspecified; H90.5 Unspecified sensorineural hearing loss; I25.82 Chronic total occlusion of coronary artery; I48.91 Unspecified atrial fibrillation; I50.9 Heart failure, unspecified; K21.9 Gastro-esophageal reflux disease without esophagitis; N40.0 Benign prostatic hyperplasia without lower urinary tract symptoms; K59.09 Other constipation; M19.90 Unspecified osteoarthritis, unspecified site; I11.0 Hypertensive heart disease with heart failure; I25.10 Atherosclerotic heart disease of native coronary artery without angina pectoris; I25.2 Old myocardial infarction
CPT/HCPCS: 36415; 70450; 71045; 71275; 80048; 80053; 82550; 82947; 83605; 83690; 83735; 83880; 84484; 85025; 85379; 85610; 87040; 87641; 93005; 93970; 96374; J1815; J1885; J8597; Q9967; 99285-25; J7030

== ENCOUNTER → 2018-12-03 | Outpatient (CLI) | payer MEDICARE, BC ==
[2018-04-04 14:37] VITALS: BP 135/79
[~2018-12-03] MED LIST changes: +METO10TA81 PO; +MIDO5TAB PO; +OXYC5TAB4 PO; +POTA20TA4 PO; -SENN1TAB21 PO; +SENN1TAB62 PO
--- NOTE | 2018-12-03 11:44 | CARD ---
MR#: [id number] Date of Study: 12/03/2018 Ordering Physician: KACY MANCILLA, Referring Physician: KACY MANCILLA, Tech: Judy Gibbs APPROVED REPORT EXAM: Two-dimensional and M-mode echocardiogram with Doppler and color Doppler. Other Information Quality : Average INDICATION CAD Surgery/Intervention CABG: Date: 2007 Site: Medical RISK FACTORS Hypertension 2D DIMENSIONS Left Atrium(2D)3.3 (1.6-4.0cm)IVSd1.2 (0.7-1.1cm) Aortic Root(2D)3.6 (2.0-3.7cm)LVDd4.6 (3.9-5.9cm) LVOT Diameter2.1 (1.8-2.4cm)PWd1.3 (0.7-1.1cm) LVDs3.4 (2.5-4.0cm)FS (%) 26.1 % SV50.6 mlLVEF(%)51.2 (>50%) Aortic Valve AoV Peak Santiago.87.0cm/sAoV VTI15.0cm AO Peak GR.3.0mmHgLVOT Peak Santiago.73.7cm/s LVOT VTI 14.35cmAO Mean GR.2mmHg ERLIN (VMAX)3.49ws6ULY (VTI)3.42cm2 Mitral Valve MV E Xsknwhtr76.5cm/sMV DECEL RUBM582se MV A Dsafjieb413.0cm/sE/A Ratio0.6 Pulmonary Valve PV Peak Zoggrdau641.7cm/sPV Peak Grad.4mmHg Tricuspid Valve TR P. Lqnduyyq344gk/sRAP DQCRJMED2zvJv TR Peak Gr.77aeAzPDOU78wyZp Pulmonary Vein S1 Ncjrbnth78.2cm/sD2 Tpirtvjp90.8cm/s LEFT VENTRICLE The left ventricle is normal size. There is mild to moderate concentric left ventricular hypertrophy. The left ventricular systolic function is mildly decreased. The Ejection Fraction is 45-50%. There i s slight global hypokinesis of the left ventricle. Septal motion suggestive of prior CABG. Transmitra l Doppler flow pattern is Grade I-abnormal relaxation pattern. RIGHT VENTRICLE The right ventricle is normal size. There is normal right ventricular wall thickness. The right ventr icular systolic function is normal. ATRIA The left atrium is mildly dilated. The right atrium size is normal. The interatrial septum is intact with no evidence for an atrial septal defect or patent foramen ovale as noted on 2-D or Doppler imagi ng. AORTIC VALVE The aortic valve is normal in structure and function. Doppler and Color Flow revealed no significant aortic regurgitation. There is no significant aortic valvular stenosis. MITRAL VALVE The mitral valve is normal in structure and function. There is no evidence of mitral valve prolapse. There is no mitral valve stenosis. Doppler and Color Flow revealed no mitral valve regurgitation note d. TRICUSPID VALVE The tricuspid valve is normal in structure and function. Doppler and Color Flow revealed trace tricus pid regurgitation with an estimated PAP of 21 mmHg. There is no tricuspid valve prolapse or vegetatio n. There is no tricuspid valve stenosis. PULMONIC VALVE Doppler and Color Flow revealed trace pulmonic valvular regurgitation. There is no pulmonic valvular stenosis. GREAT VESSELS The aortic root is normal in size. The IVC was not well visualized. PERICARDIAL EFFUSION There is no evidence of significant pericardial effusion. Critical Notification Critical Value: No <Conclusion> The left ventricular systolic function is mildly decreased. The Ejection Fraction is 45-50%. There is slight global hypokinesis of the left ventricle. Septal motion suggestive of prior CABG. Signed by : Thong Gray, Electronically Approved : 12/03/2018 11:43:28
== END | disposition home or self-care (01) ==
LOC: ECHO 10:08
PROVIDERS: ATTEND Internal Medicine Cardiovascular Disease
DX: I51.7 Cardiomegaly (principal); I25.10 Atherosclerotic heart disease of native coronary artery without angina pectoris
CPT/HCPCS: 93306

== ENCOUNTER → 2018-12-14 | Outpatient (CLI) | payer MEDICARE, BC ==
[2018-04-04 14:37] VITALS: BP 135/79
--- NOTE | 2018-12-25 14:31 | RAD ---
MR#: [id number] Date of Study: 12/14/2018 Ordering Physician: KACY MANCILLA, Referring Physician: KACY MANCILLA, Tech: Princess Bettencourt RDMS, PETAR APPROVED REPORT Patient Location : OUT-PATIENT Indications Lower Extremity Edema : Bilateral Varicose Veins Grayscale images of the greater saphenous and lesser saphenous veins were difficult to obtain. Noneth eless, there is reflux noted in the proximal left great saphenous vein measuring greater than 3 secon ds but distal to this segment the vein is not well visualized. There is a left popliteal fossa cyst m easuring approximately 5 x 3.4 x 0.7 cm. There are multiple varicosities noted on the anterior calf o n the left side. On the right there is no significant reflux in the greater saphenous vein. Multiple venous varicositi es again are noted in the anterior calf at the level of the ankle. Past History Diabetes Medications Plavix Greater Saphenous Veins (GSV) Significant venous relux noted in the LEFT GSV at the following levels : Superficial Femoral Junction , Proximal Thigh Accessory Veins Right Anterior Accessory Vein : Present : Yes Reflux : No Leftt Anterior Accessory Vein : Present : Yes Reflux : No Right Posterior Accessory Vein : Present : No Reflux : No Left Posterior Accessory Vein : Present : No Reflux : No Critical Notification Critical Value: No <Conclusion> 1. Positive for reflux in the proximal segment of the left great saphenous vein, the mid and distal s egments were not visualized. 2. Multiple bilateral venous varicosities in the lower extremity Signed by : Thong Gray, Electronically Approved : 12/25/2018 14:31:22
== END | disposition home or self-care (01) ==
LOC: US 07:58
PROVIDERS: ATTEND Internal Medicine Cardiovascular Disease
DX: I83.893 Varicose veins of bilateral lower extremities with other complications (principal); E11.9 Type 2 diabetes mellitus without complications
CPT/HCPCS: 93970

== ENCOUNTER → 2019-06-17 | Outpatient (CLI) | payer MEDICARE, BC ==
[2018-04-04 14:37] VITALS: BP 135/79
[~2019-06-17] MED LIST changes: -ALFU10TA3 PO; +ALFU10TA4 PO; -MIDO5TAB PO; +MIDO5TAB4 PO; +REGADENOSON 0.4 MG/5 ML DISP.SYRIN. IV ONE
--- NOTE | 2019-06-17 16:50 | RAD ---
MR#: [id number] Date of Study: 06/17/2019 Ordering Physician: KACY MANCILLA, Referring Physician: ELISE SEGURA Tech: RT Royal Sheldon) (N) APPROVED REPORT Test Type: Pharmacological Stress Nurse/Tech: RT Pito (R) (N) Test Indications: Coronary artery disease Cardiac History: CABG x3 bypass about 10 years ago, 3 stents Medications: see EHR Medical History: see EHR Resting ECG: sinus rhythm Resting Heart Rate: 96 bpm Resting Blood Pressure: 158/78mmHg Pretest Chest Pain: None Nurse/Tech Notes Consent: The procedure was explained to the patient in lay terms. Informed consent was witnessed. Luisito eout was entered into [employer]. History and Stress Test performed by RT Pito (Harinder) (N) Pharm. Details Pharmacologic stress testing was performed using 0.4mg per 5ml of regadenoson given intravenously ove r 7-10 seconds. POST EXERCISE Reason for Termination: Infusion complete Max HR: 109 bpm Max Blood Pressure: 178/61mmHg ST Change: Yes. INTERPRETATION Stress EKG Conclusion: NO evidence of stress induced EKG changes. Imaging Protocol IMAGE PROTOCOL: Rest Tc-99m/stress Tc-99m 1 day Rest: Stress: Viability: Radiopharm.Tc99m [id number] Sestamibi Iybd34mUk 31mCi Duration 15min. 10min. Img Date 06/17/2019 06/17/2019 Inj-Img Urnr22eqh. 60min. Rest Admin Site:IV - Left AntecubitalAdministrator: RT Pito (Harinder)(N) Stress Admin Site: IV - Left AntecubitalAdministrator: RT Royal Sheldon)(N) STRESS DATA End Diast. Vol.87.0mlAv. Heart Rate89.0bpm End Syst. Vol.43.0mlCO Index BSA3.9L/min Myocardial Fwlg019.0gEject. Hhakyrcr05.0% Stress Rates Pk. Fill Rate4.14EDV/secLVtime Pk. Fill 192.24msec Pk. Empty Rate3.48ESV/secLVtime Pk. Eject84.70msec 1/3 Pk. Fill0.25EDV/sec Stress Scores Regional WT3.00Summed WT21.00 Regional WM0.00Summed WM12.00 LV Perfusion There is a moderate sized, mid to distal anterior wall reversible defect suggestive of impaired perfu jeanne in the LAD territory. Wall Motion Normal wall motion. LV Perf. Quant 17 Seg. SSS4.00 17 Seg. SRS2.00 17 Seg. SDS3.00 Stress Defect Extent (% LAD)21.90Rest Defect Extent (% LAD)0.00Rev. Defect Extent (% LAD)20.60 Stress Defect Extent (% LCX) 0.00Rest Defect Extent (% LCX)0.00Rev. Defect Extent (% LCX)0.00 Stress Defect Extent (% RCA)0.00Rest Defect Extent (% RCA)0.00Rev. Defect Extent (% RCA)0.00 Stress Defect Extent (% PATSY)11.70Rest Defect Extent (% PATSY)0.00Rev. Defect Extent (% PATSY)10.90 Other Information Quality:Average Risk Assessment: Moderate Risk Conclusion 1. No evidence of stress induced EKG changes. 2. Reversible anterior wall perfusion defect. (May be due to LAD territory ischemia prior to bypass t ouchdown) 3. Normal LV function. 4. Moderate risk study. Signed by : Thong Gray, Electronically Approved : 06/17/2019 16:50:17
== END | disposition home or self-care (01) ==
LOC: NM 07:46
PROVIDERS: ATTEND Internal Medicine Cardiovascular Disease
DX: I25.10 Atherosclerotic heart disease of native coronary artery without angina pectoris (principal); Z95.1 Presence of aortocoronary bypass graft; Z95.5 Presence of coronary angioplasty implant and graft
CPT/HCPCS: 78452; 93017; A9500; J2785

== ENCOUNTER → 2020-05-30 | Outpatient (CLI) | payer MEDICARE, BC ==
[2018-04-04 14:37] VITALS: BP 135/79
[~2020-05-30] MED LIST changes: +LISI10TA16 PO; -LISI10TA2 PO; +MULT-445 PO; -MULT1TAB52 PO; -RABE20TA26 PO; +RABE20TA29 PO; -REGADENOSON 0.4 MG/5 ML DISP.SYRIN. IV ONE
--- NOTE | 2020-05-30 16:53 | CARD ---
MR#: [id number] Date of Study: 05/30/2020 Ordering Physician: KACY MANCILLA, Referring Physician: KACY MANCILLA, Tech: Judy Macedoelpidioasya [facility] APPROVED REPORT EXAM: Two-dimensional and M-mode echocardiogram with Doppler and color Doppler. Other Information Quality : AverageHR: 85bpm INDICATION Cardiac Disease: CAD Surgery/Intervention CABG: RISK FACTORS Diabetes 2D DIMENSIONS Left Atrium(2D)3.3 (1.6-4.0cm)IVSd1.2 (0.7-1.1cm) Aortic Root(2D)3.6 (2.0-3.7cm)LVDd4.3 (3.9-5.9cm) LVOT Diameter2.2 (1.8-2.4cm)PWd1.0 (0.7-1.1cm) LVDs3.7 (2.5-4.0cm)FS (%) 13.3 % SV23.9 mlLVEF(%)38.7 (>50%) Aortic Valve AoV Peak Santiago.99.9cm/sAoV VTI17.2cm AO Peak GR.4.0mmHgLVOT Peak Santiago.82.7cm/s LVOT VTI 15.43cmAO Mean GR.2mmHg ERLIN (VMAX)3.79ut7AEA (VTI)3.44cm2 Pulmonary Valve PV Peak Ekqnievd83.8cm/sPV Peak Grad.3mmHg Tricuspid Valve TR P. Tfqxytcx202ck/sRAP BRJYIZIV1ztSs TR Peak Gr.57bkIdWIUU75pwKh LEFT VENTRICLE The left ventricle is normal size. There is borderline to mild concentric left ventricular hypertroph y. The left ventricular systolic function is mildly diminished. The Ejection Fraction is 50%. Mild gl obal hypokinesis. Septal motion suggestive of conduction defect. Transmitral Doppler flow pattern is Grade I-abnormal relaxation pattern. RIGHT VENTRICLE The right ventricle is normal size. There is normal right ventricular wall thickness. The right ventr icular systolic function is normal. ATRIA The left atrium size is normal. The right atrium size is normal. The interatrial septum is intact wit h no evidence for an atrial septal defect or patent foramen ovale as noted on 2-D or Doppler imaging. AORTIC VALVE The aortic valve is sclerotic. Doppler and Color Flow revealed trace aortic regurgitation. There is n o significant aortic valvular stenosis. MITRAL VALVE The mitral valve is normal in structure and function. There is no evidence of mitral valve prolapse. There is no mitral valve stenosis. Doppler and Color Flow revealed no mitral valve regurgitation note d. TRICUSPID VALVE The tricuspid valve is normal in structure and function. Doppler and Color Flow revealed trace tricus pid regurgitation with an estimated PAP of 25 mmHg. There is no tricuspid valve stenosis. PULMONIC VALVE The pulmonary valve is normal in structure and function. Doppler and Color Flow revealed trace pulmon ic valvular regurgitation. There is no pulmonic valvular stenosis. GREAT VESSELS The aortic root is normal in size. The ascending aorta is normal in size. The IVC was not visualized. PERICARDIAL EFFUSION There is no evidence of significant pericardial effusion. Critical Notification Critical Value: No <Conclusion> The left ventricular systolic function is mildly diminished. The Ejection Fraction is 50%. Mild global hypokinesis. Septal motion suggestive of conduction defect. Signed by : Thong Gray, Electronically Approved : 05/30/2020 16:52:39
== END ==
LOC: ECHO 08:40
PROVIDERS: ATTEND Internal Medicine Cardiovascular Disease
DX: I51.7 Cardiomegaly (principal); I25.10 Atherosclerotic heart disease of native coronary artery without angina pectoris
CPT/HCPCS: 93306

== ENCOUNTER 2020-09-18 22:44 | Inpatient (IN) | payer MEDICARE, BC ==
[~2020-09-18] VITALS: Ht 175.3 cm; Wt 71.5 kg
--- NOTE | 2020-09-18 23:23 | PHYS DOC ---
Past History Past Medical History: Anemia, Arthritis, CAD, CHF, Diabetes, GERD, High Cholesterol, Hip Fracture, Hypertension, Pancreatitis, Other Past Surgical History: Angioplasty, Coronary Bypass Surgery, Hip Replacement, Other Smoking: Non-smoker Alcohol Use: None Drug Use: None General Adult EDM: Chief Complaint: NAUSEA/VOMITING/DIARRHEA HPI: HPI: ".. I was eating some little sausages tonight.... My is eating the same thing... But I started vomiting and I think my pancreatitis is coming back..." Patient is a 79 year old male who presents with above hx and complaints of nausea, vomiting, Pt. has hx episodes of severe pancreatitis which patient currently states his symptoms are how it presents. Patient has had episodes of chronic pancreatitis including pancreatic pseudocyst. . Patient does not use alcohol. Does occasionally have intolerance to high-fat foods. No recent travel or specific ill contacts. Symptoms started after a high-fat meal of sausages. ate the same meal and did not get sick. Patient has significant past medical history for three-vessel coronary artery disease status post coronary artery bypass graft, has had stent placements for coronary artery dis ease, atrial fibrillation, hypertension, hyperlipidemia, myocardial infarction, chronic constipation, GERD, anemia, degenerative joint disease, sciatica, sensorineural deafness, enlarged prostate, diabetes, hypothyroidism, and deconditioning. Pt. follows with Dr. Guzmán. Review of Systems: Review of Systems: Constitutional: Denies fever or chills Eyes: Denies change in visual acuity HENT: Denies nasal congestion or sore throat Respiratory: Denies cough or shortness of breath Cardiovascular: Denies chest pain or edema GI: Complaints of abdominal pain, nausea, vomiting,. Denies bloody stools or diarrhea : Denies dysuria Musculoskeletal: Denies back pain or joint pain Integument: Denies rash Neurologic: Denies headache, focal weakness or sensory changes Endocrine: Denies polyuria or polydipsia Lymphatic: Denies swollen glands Psychiatric: Denies depression or anxiety Family History: Family History: Noncontributory to presentation. There is a family history of cancer and heart disease. Current Medications: Current Meds: See nursing for home meds Allergies: Allergies: Allergies Coded Allergies Type Severity Reaction Last Updated Verified No Known Drug Allergies 05/10/15 No Physical Exam: PE: Constitutional: in acute distress, non-toxic appearance. [] HENT: Normocephalic, atraumatic, bilateral external ears normal, oropharynx dry, no oral exudates, nose normal. [] Eyes: PERRLA, EOMI, conjunctiva normal, no discharge. [] Neck: Normal range of motion, no tenderness, supple, no stridor. [] Cardiovascular:Heart rate regular rhythm, no murmur, PMI to the left Lungs & Thorax: Bilateral breath sounds equal apex with few scattered wheezes and basilar crackles on auscultation []. Midline sternotomy scar Abdomen: Bowel sounds decreased, soft, epigastric and right upper quadrant tenderness, no masses, no pulsatile masses. [] Rebound epigastric and right upper quadrant. Active vomiting dry heaves. No psoas sign. Distended abdomen. Skin: Warm, dry, no erythema, no rash. Poor turgor. Back: No tenderness, no CVA tenderness. [] Extremities: No tenderness, no cyanosis, no clubbing, ROM intact, no edema. [Arthritic changes. Right hip scar. Neurologic: Alert and oriented X 3, moves all extremities on request, does have distal sensory,, no new focal deficits noted by patient or family. Psychologic: Affect anxious, judgement normal, mood depressed. EKG: EKG: My interpretation EKG shows sinus rhythm at 75 bpm. No findings of acute STEMI or contralateral changes. [] Radiology/Procedures: Radiology/Procedures: [[address] [address] IMAGING REPORT Signed PATIENT: OSMANI CROW ACCOUNT: [id number] : 1940 LOCATION: ER AGE: 79 SEX: M EXAM STATUS: REG ER ORD. PHYSICIAN: ADI THOMAS MD REASON: hxc pancreatitis, OMNI 240, 30ml, OMNI 300, 75ml PROCEDURE: CT ABD PELV W/ORAL&IV CONTRAST CT OF THE ABDOMEN AND PELVIS WITH IV CONTRAST. History: Reason: hxc pancreatitis, OMNI 240, 30ml, OMNI 300, 75ml / Spl. Instructions: / History: Comparison:None. Procedure: Contiguous axial images of the abdomen and pelvis were performed after the administration of 75 cc of Omni 300 IV contrast. Oral contrast: Yes. Findings: The gallbladder is fully fairly distended but otherwise appears normal. There is mild to moderate wall thickening of the hepatic flexure of the colon without surrounding inflammation. The appendix appears normal. Liver: Unremarkable Spleen: Unremarkable Pancreas: The pancreas is atrophic. The pancreatic duct is mildly dilated and there is calcifications within the pancreatic head. Adrenal Glands: Unremarkable Kidneys: Bilateral cysts There is no mass or lymphadenopathy. There is no free air. There is no free fluid. The urinary bladder appears normal. Impression: 1. Evidence of prior pancreatitis. 2. Mild to moderate wall thickening of the hepatic flexure of the colon. This could be secondary to inflammatory or infectious colitis. There is no diverticulitis. There is no air in the wall to suggest ischemic colitis. End Impression PQRS Compliance Statement: One or more of the following individualized dose reduction techniques were utilized for this examination: 1. Automated exposure control 2. Adjustment of the mA and/or kV according to patient size 3. Use of iterative reconstruction technique Electronically signed by: Lu Myers III, MD (09/19/2020 3:14 AM) [facility] DICTATED AND SIGNED BY: LU MYERS III, MD DATE: 09/19/20 0306][place] [address] IMAGING REPORT Signed PATIENT: OSMANI CROW ACCOUNT: [id number] : 1940 LOCATION: ER AGE: 79 SEX: M EXAM STATUS: REG ER ORD. PHYSICIAN: ADI THOMAS MD REASON: n/v PROCEDURE: ACUTE ABDOMEN SERIES XR ABDOMEN COMP ACUTE History: Reason: n/v / Spl. Instructions: / History: Technique: Upright and supine views of the abdomen. Comparison: None. Findings: Patchy bibasilar opacities. No pneumoperitoneum. No pneumothorax. No pleural effusion. Normal heart size. Mild small bowel gas. Air and stool throughout the colon. Moderate colonic stool burden. Right hip arthroplasty. Multilevel lumbar spondylosis. Left hip DJD. Vascular calcifications. Impression: 1. Nonobstructed bowel gas pattern. 2. Moderate colonic stool burden. 3. Patchy bibasilar opacities, likely atelectasis. Electronically signed by: Herberth Kelsey DO (09/19/2020 12:14 AM) [facility] DICTATED AND SIGNED BY: HERBERTH KELSEY DO DATE: 09/19/20 0012 CC: ADI THOMAS MD; DENYS GUZMÁN MD ~MTH0 0 Heart Score: C/O Chest Pain: Yes HEART Score for Chest Pain: HEART Score for Chest Pain Response (Comments) Value History Slighlty/Non-Suspicious 0 ECG Normal 0 Risk Factors 1 or 2 Risk Factors 1 Troponin < Normal Limit 0 Total 1 Risk Factors: Risk Factors: DM, Current or recent (<one month) smoker, HTN, HLP, family history of CAD, obesity. Risk Scores: Score 0 - 3: 2.5% MACE over next 6 weeks - Discharge Home Score 4 - 6: 20.3% MACE over next 6 weeks - Admit for Clinical Observation Score 7 - 10: 72.7% MACE over next 6 weeks - Early Invasive Strategies Course & Med Decision Making: Course & Med Decision Making Pertinent Labs and Imaging studies reviewed. (See chart for details) Discussed presentation, testing and treatment plan with . Admit for hydration and further evaluation of intractable nausea vomiting. Impression: 1. Abdomen pain 2. Intractable nausea and vomiting 3. Mild hypokalemia 3.1 4. Dehydration 5. Constipation 6. Colitis- Hepatic Flexure 7. Hx. Chronic Pancreatitis [] Dragon Disclaimer: Dragjavon Disclaimer: This electronic medical record was generated, in whole or in part, using a voice recognition dictation system. Departure Departure: Referrals: DENYS GUZMÁN MD (PCP) Dragon Disclaimer This chart was dictated in whole or in part using Voice Recognition software in a busy, high-work load, and often noisy Emergency Department environment. It may contain unintended and wholly unrecognized errors or omissions. ADI THOMAS MD September 18, 2020 23:23
[2020-09-18 23:40] LABS: BASO # 0.1 x10^3/uL (0.0-0.2); BASO % 1 % (0-3); EOS # 0.3 x10^3/uL (0.0-0.7); EOS % 3 % (0-3); HEMATOCRIT 47.4 % (39.0-53.0); HEMOGLOBIN 15.7 g/dL (13.0-17.5); LYMPH # 2.8 x10^3/uL (1.0-4.8); LYMPH % 26 % (24-48); MEAN CORPUSCULAR HEMOGLOBIN 32 pg (25-35); MEAN CORPUSCULAR HGB CONC 33 g/dL (31-37); MEAN CORPUSCULAR VOLUME 96 fL (79-100); MONO # 0.6 x10^3/uL (0.0-1.1); MONO % 6 % (0-9); NEUT % 65 % (31-73); PLATELET COUNT 231 x10^3/uL (140-400); RED BLOOD COUNT 4.93 x10^6/uL (4.30-5.70); RED CELL DISTRIBUTION WIDTH 13.5 % (11.5-14.5); WHITE BLOOD COUNT 10.7 x10^3/uL (4.0-11.0)
[2020-09-18] MEDS ORDERED: IOHEXOL 300 MG/ML 75 ML VIAL. IV ONE (23:45)
[2020-09-18] MEDS ORDERED: MORPHINE SULFATE 10 MG/ML SYRINGE. SQ ONE (23:45)
[2020-09-18] MEDS ORDERED: ONDANSETRON PF 4 MG/2 ML VIAL. IVP ONE (23:45)
[2020-09-18] MEDS ORDERED: FAMOTIDINE 20 MG/2 ML VIAL IVP ONE (23:45)
[2020-09-18] MEDS ORDERED: IV RINGERS SOLUTION,LACTATED 1,000 ML IV SCH (23:45)
[2020-09-18] MEDS ORDERED: IOHEXOL 240 MG/ML 50ML VIAL. PO ONE (23:45)
[2020-09-18] MEDS ORDERED: CONTRAST GIVEN. MC PRN (23:45)
--- NOTE | 2020-09-19 00:17 | RAD ---
XR ABDOMEN COMP ACUTE History: Reason: n/v / Spl. Instructions: / History: Technique: Upright and supine views of the abdomen. Comparison: None. Findings: Patchy bibasilar opacities. No pneumoperitoneum. No pneumothorax. No pleural effusion. Normal heart s ize. Mild small bowel gas. Air and stool throughout the colon. Moderate colonic stool burden. Right hip ar throplasty. Multilevel lumbar spondylosis. Left hip DJD. Vascular calcifications. Impression: 1. Nonobstructed bowel gas pattern. 2. Moderate colonic stool burden. 3. Patchy bibasilar opacities, likely atelectasis. Electronically signed by: Herberth Kelsey DO (09/19/2020 12:14 AM) [facility]
[2020-09-19] MEDS ORDERED: ONDANSETRON PF 4 MG/2 ML VIAL. IVP ONE (02:15)
[2020-09-19 02:29] LABS: CALCIUM 8.5 mg/dL (8.5-10.1); CREATININE 1.1 mg/dL (0.7-1.3); GFR 64.2; POTASSIUM 3.1 mmol/L (3.5-5.1)
[2020-09-19] MEDS ORDERED: diphenhydrAMINE 50 MG/ML VIAL IVP ONE (02:30)
[2020-09-19] MEDS ORDERED: PROCHLORPERAZINE 10 MG/2 ML VIAL. IV ONE (02:30)
[2020-09-19 02:35] LABS: ALBUMIN 3.3 g/dL (3.4-5.0); DIRECT BILIRUBIN 0.1 mg/dL (0.0-0.2); TOTAL BILIRUBIN 0.4 mg/dL (0.2-1.0); TOTAL PROTEIN 6.4 g/dL (6.4-8.2)
[2020-09-19] MEDS ORDERED: MAGNESIUM HYDROXIDE 2,400 MG/30 ML ORAL.SUSP. PO ONE (03:00)
--- NOTE | 2020-09-19 03:17 | RAD ---
CT OF THE ABDOMEN AND PELVIS WITH IV CONTRAST. History: Reason: hxc pancreatitis, OMNI 240, 30ml, OMNI 300, 75ml / Spl. Instructions: / History: Comparison:None. Procedure: Contiguous axial images of the abdomen and pelvis were performed after the administration of 75 cc o f Omni 300 IV contrast. Oral contrast: Yes. Findings: The gallbladder is fully fairly distended but otherwise appears normal. There is mild to moderate wall thickening of the hepatic flexure of the colon without surrounding inf lammation. The appendix appears normal. Liver: Unremarkable Spleen: Unremarkable Pancreas: The pancreas is atrophic. The pancreatic duct is mildly dilated and there is calcifications within the pancreatic head. Adrenal Glands: Unremarkable Kidneys: Bilateral cysts There is no mass or lymphadenopathy. There is no free air. There is no free fluid. The urinary bladder appears normal. Impression: 1. Evidence of prior pancreatitis. 2. Mild to moderate wall thickening of the hepatic flexure of the colon. This could be secondary to i nflammatory or infectious colitis. There is no diverticulitis. There is no air in the wall to suggest ischemic colitis. End Impression PQRS Compliance Statement: One or more of the following individualized dose reduction techniques were utilized for this examinat ion: 1. Automated exposure control 2. Adjustment of the mA and/or kV according to patient size 3. Use of iterative reconstruction technique Electronically signed by: Philip Singh III, MD (09/19/2020 3:14 AM) [facility]
[2020-09-19] MEDS ORDERED: ACETAMINOPHEN 325 MG TABLET PO PRN ×2 (04:15→16:45)
[2020-09-19] MEDS: IV RINGERS SOLUTION,LACTATED 1,000 ML IV SCH ×2 (05:00→13:05)
[2020-09-19 05:05] VITALS: BP 128/71
[2020-09-19 05:09] LABS: BARBITURATES NEG (NEG); BENZODIAZEPINES NEG (NEG); CANNABINOIDS NEG (NEG); COCAINE NEG (NEG); METHADONE NEG (NEG); OPIATES POS (NEG); PHENCYCLIDINE NEG (NEG)
[2020-09-19 05:14] LABS: COLOR,URINE YELLOW
[2020-09-19 05:15] LABS: BILIRUBIN,URINE NEG (NEG); CLARITY,URINE CLEAR; GLUCOSE,URINE NEG (NEG); NITRITE,URINE NEG (NEG); UROBILINOGEN,URINE 0.2 mg/dL (0.2 mg/dL)
[2020-09-19 05:17] LABS: BACTERIA,URINE 0 /HPF (0-FEW); RBC,URINE OCC /HPF (0-2); SQUAMOUS EPITHELIAL CELL,UR OCC /LPF; WBC,URINE 0 /HPF (0-4)
[2020-09-19 05:18] LABS: AMPHETAMINE/METHAMPHETAMINE NEG (NEG)
[2020-09-19] MEDS ORDERED: IPRATRPIUM/ALBUTEROL 0.5/2.5MG 3 ML NEBU. ONE (05:32)
--- NOTE | 2020-09-19 05:57 | NUR ---
The patient, OSMANI CROW, 79 y/o, M admitted by TROY JACKSON MD, was given written information regarding hospital policies, unit procedures and contact persons. Valuables were checked and vital signs noted. PT very tired and unable to stay awake for long periods of time. PT unsure of medications. PT's is to call with medication list to verify per ED nurse.
--- NOTE | 2020-09-19 06:41 | EKG ---
[address] [address] Test Date: 2020-09-18 Test Time: 23:36:08 Pat Name: OSMANI CROW Department: Room: Gender: M [employer]igo Mixer: NGHIA : 1940 Requested By: ADI THOMAS Order Number: [id number] Reading MD: Measurements Intervals [place] Rate: 75 P: 28 WV: 162 QRS: 24 QRSD: 88 T: 39 QT: 402 QTc: 452 Interpretive Statements SINUS RHYTHM NORMAL ECG RI6.02 No previous ECG available for comparison
[2020-09-19 07:20] LABS: CALCIUM 8.1 mg/dL (8.5-10.1); CREATININE 0.9 mg/dL (0.7-1.3); POTASSIUM 4.2 mmol/L (3.5-5.1)
[2020-09-19] MEDS ORDERED: IPRATRPIUM/ALBUTEROL 0.5/2.5MG 3 ML NEBU. NEB SCH (08:00)
[2020-09-19] MEDS: FAMOTIDINE 20 MG/2 ML VIAL IVP SCH ×2 (09:07→21:24)
[2020-09-19] MEDS ORDERED: IPRATRPIUM/ALBUTEROL 0.5/2.5MG 3 ML NEBU. NEB PRN (09:45)
[2020-09-19 11:02] VITALS: BP 136/78
[2020-09-19] MEDS ORDERED: DUTA0.5C PO (13:47)
[2020-09-19] MEDS ORDERED: INSU100I32 SQ (13:47)
[2020-09-19] MEDS ORDERED: LISI10TA16 PO (13:47)
[2020-09-19 16:05] VITALS: BP 150/78
[2020-09-19] MEDS ORDERED: POLYETHYLENE GLYCOL 3350 17 GM PACKET. PO PRN (16:45)
[2020-09-19] MEDS ORDERED: oxyCODONE IR 5 MG TABLET PO PRN (16:45)
[2020-09-19] MEDS ORDERED: METOCLOPRAMIDE 5 MG TABLET PO PRN (17:15)
[2020-09-19] MEDS: POTASSIUM CL 20MEQ-0.45% NACL 1,000 ML IV SCH (17:39)
[2020-09-19] MEDS: MIDODRINE 5 MG TABLET PO SCH (18:00)
--- NOTE | 2020-09-19 18:22 | NUR ---
Shift Note: Pt sleepy most of the day, oriented but very forgetful. Pt family up to visit today. Med list and recent visit note obtained from PCP per Dr Allen request.
--- NOTE | 2020-09-19 18:43 | HP ---
ADMIT DATE: 09/19/2020 HISTORY OF PRESENT ILLNESS: The patient is an 79-year-old male patient who was brought to the emergency room with a complaint of nausea, vomiting and diarrhea. The patient has a history of severe pancreatitis before and the patient states that his symptoms are how it presents, the patient has had episodes of chronic pancreatitis including pancreatic pseudocyst. He does not use any alcohol, does occasionally have intolerance to high fat diet. No recent travel or specific ill contacts. Symptoms started after high fat meal or sausages. ate the same meal and did not get sick. The patient has significant past medical history of 3-vessel coronary artery disease. He normally follows with Dr. Guzmán. He was extensively investigated in the emergency room. Lab work showed his white cell count was normal. His chemistry was mostly unremarkable except for hypokalemia as well as his serum lipase was certainly very low at 18. He was mildly dehydrated. His prothrombin time/INR and APTT are normal. Urinalysis essentially unremarkable and toxic screen was positive for opiates, but negative for all other drugs. He has had CT scan of the abdomen and pelvis, which basically showed that the gallbladder is fairly distended, otherwise appears normal. There is mild to moderate wall thickening of the hepatic flexure of the colon without surrounding inflammation. The appendix appears normal. The liver is unremarkable. Spleen is unremarkable. Pancreas is atrophic. Pancreatic duct is mildly dilated and there is calcification within the pancreatic head. Adrenal glands are unremarkable. Kidneys, bilateral renal cysts. There is no lymphadenopathy. There is no free air or free fluid. Urinary bladder appears normal. The impression is the patient has evidence of prior pancreatitis, mild to moderate wall thickening of the hepatic flexure of the colon, which could be secondary to inflammation or infectious colitis. There is no diverticulitis. There is no air in the wall to suggest ischemic colitis. The patient was admitted with nausea, vomiting, dehydration, hypokalemia and colitis as well as chronic pancreatitis. He was started on IV fluid. The patient has received Benadryl, ondansetron, morphine sulfate, famotidine and a liter of Ringer's lactate and was admitted for further evaluation and treatment. PAST MEDICAL HISTORY: Significant for severe [place] 3-vessel disease status post coronary artery bypass graft surgery. He has also occluded saphenous vein graft to the right coronary artery, 80% ostial LMA and PCI with a stent to the left coronary artery disease. Other medical problems include atrial fibrillation, hypertension, hyperlipidemia, myocardial infarction. He is also known to have chronic constipation, gastroesophageal reflux disease, chronic pancreatitis and pancreatic pseudocyst, anemia, degenerative joint disease, sciatica, sensorineural deafness, benign prostatic hypertrophy and type 2 diabetes mellitus as well as hypothyroidism. PAST SURGICAL HISTORY: Significant for ERCP, coronary artery bypass graft surgery, open reduction and internal fixation of right hip joint fracture. FAMILY HISTORY: Positive for cancer and heart disease. SOCIAL HISTORY: He is , lives with his . He is a nonsmoker, does not drink alcohol or use any recreational drugs. MEDICATIONS: He is currently on following medications. He is on midodrine 5 mg 3 times a day, alfuzosin 10 mg daily, Plavix 75 mg daily, atorvastatin calcium 20 mg at bedtime, omega 3 fatty acid 1000 mg once a day, lisinopril 10 mg once a day, aspirin 81 mg once a day, oxycodone 5 mg immediate release every 4 hours. He is on tramadol 50 mg daily, acetaminophen 650 mg every 4 hours, potassium chloride 20 mEq twice a day, polyethylene glycol 17 grams daily, Senna-S 1 tablet daily. He is on Creon 36,000 units 2 capsules 3 times a day before meals and Creon 1 capsule before at bedtime. He is on proton pump inhibitor in the form of rabeprazole 20 mg once a day, metoclopramide 5 mg 3 times a day before meals, NovoLog insulin 5 units 3 times a day before meals. He is on Lantus insulin 10 units at bedtime and Basaglar KwikPen 30 units at bedtime. He is on pioglitazone 15 mg daily, multivitamin one tablet once a day and dutasteride for Avodart 0.5 mg once a day on arrival. REVIEW OF SYSTEMS: As per history of present illness. PHYSICAL EXAMINATION: GENERAL: On arrival to the emergency room, the patient looked well and was clearly in no apparent respiratory distress. No pallor, jaundice, cyanosis, or thyromegaly. No jugular venous distention, no lower limb edema. VITAL SIGNS: His heart rate was 76, blood pressure was 140/74, temperature was 97.1, respiratory rate was 16 and oxygen saturation was 97%. HEENT: Normocephalic, atraumatic. NECK: Supple. HEART: Showed normal first and second heart sounds, no gallop, murmur. CHEST: Showed central trachea, equal bilateral expansion air entry, vesicular breath sounds. No crepitation or rhonchi. ABDOMEN: Distended, soft, nontender. NEUROLOGIC: He was awake, alert, somewhat very hard of hearing and confused, otherwise all his cranial nerves are intact. He moves extremities without difficulty. LABORATORY DATA: His lab work this morning showed a white cell count of 10,700, hemoglobin 16, hematocrit 47, MCV 96 and platelet count 231,000 with normal manual differential. Serum sodium was 140, potassium 3.1, chloride 106, bicarbonate 18, anion gap of 16, BUN 24, creatinine 1.1. Estimated GFR was 64 mL per minute. His glucose 156, calcium was 8.5. Total bilirubin, AST, ALT, alkaline phosphatase were normal. Total protein 6.4, albumin 3.3 and serum lipase is only 18. His prothrombin time/INR and APTT are normal. Urinalysis showed the urine was yellow, clear with a pH of 5.5. His specific gravity of 1.015. There is a small amount of protein. The urine was negative for glucose, small amount of ketones, trace of blood, negative for nitrite, negative for leukocyte esterase. There are no rbc's, no wbc's and no bacteria. Toxic screen was positive for opiates, but negative for methadone, barbiturates, phencyclidine, amphetamine, methamphetamine, benzodiazepine, cocaine, cannabinoids and alcohol. ASSESSMENT AND PLAN: The patient was admitted, seems to be acute gastroenteritis. He has obviously hypokalemia, dehydration, acute colitis and evidence of chronic pancreatitis. We will continue with IV fluid and pain management and once he is able to tolerate, start on a clear liquid diet and also probably send stool for enteric panel. I will start him also on IV antibiotic. We will start him on a clear liquid diet and advance as tolerated. MICHAEL ESTRADA: Camila TID: [id number]
[2020-09-19 19:20] VITALS: BP 148/81
[2020-09-19] MEDS ORDERED: INSULIN GLARGINE SYRINGE. SQ SCH (21:00)
[2020-09-19] MEDS: MAGNESIUM HYDROXIDE 2,400 MG/30 ML ORAL.SUSP. PO SCH (21:00)
[2020-09-19] MEDS: LIPASE/PROTEAS/AMYLAS 10/32/42 CAPSULE.DR. PO SCH (21:24)
[2020-09-19] MEDS: ATORVASTATIN CALCIUM 20 MG TABLET PO SCH (21:24)
[2020-09-19] MEDS: POTASSIUM CHLORIDE 20 MEQ TABLET.ER. PO SCH (21:24)
[2020-09-19 23:35] VITALS: BP 144/77
[2020-09-20] MEDS: POTASSIUM CL 20MEQ-0.45% NACL 1,000 ML IV SCH ×2 (05:03→13:30)
[2020-09-20 06:21] VITALS: BP 137/77
[2020-09-20 06:35] LABS: HEMATOCRIT 39.2 % (39.0-53.0); HEMOGLOBIN 12.9 g/dL (13.0-17.5); RED BLOOD COUNT 4.1 x10^6/uL (4.30-5.70); RED CELL DISTRIBUTION WIDTH 12.9 % (11.5-14.5); WHITE BLOOD COUNT 8.4 x10^3/uL (4.0-11.0)
[2020-09-20 06:50] LABS: ALBUMIN 2.8 g/dL (3.4-5.0); CALCIUM 8.3 mg/dL (8.5-10.1); GFR 71.7; POTASSIUM 4.5 mmol/L (3.5-5.1); TOTAL BILIRUBIN 0.4 mg/dL (0.2-1.0); TOTAL PROTEIN 5.7 g/dL (6.4-8.2)
[2020-09-20] MEDS: MIDODRINE 5 MG TABLET PO SCH ×3 (07:00→17:21)
[2020-09-20] MEDS: INSULIN LISPRO 300 UNITS/3 ML VIAL. SQ SCH ×3 (08:00→17:00)
[2020-09-20] MEDS ORDERED: traMADol 50 MG TABLET PO ONE (08:30)
[2020-09-20] MEDS: LIPASE/PROTEAS/AMYLAS 10/32/42 CAPSULE.DR. PO SCH ×4 (08:36→21:18)
[2020-09-20] MEDS: ASPIRIN CHEWABLE 81 MG TABLET. PO SCH (08:36)
[2020-09-20] MEDS: PANTOPRAZOLE 40 MG TABLET. PO SCH (08:37)
[2020-09-20] MEDS: SENNOSIDES/DOCUSATE 8.6/50MG TABLET. PO SCH (08:37)
[2020-09-20] MEDS: CLOPIDOGREL BISULFATE 75 MG TABLET PO SCH (08:37)
[2020-09-20] MEDS: MULTIVITAMIN with MINERAL TABLET. PO SCH (08:37)
[2020-09-20] MEDS: OMEGA-3 FATTY ACIDS/FISH OIL 1,000 MG CAPSULE. PO SCH (08:37)
[2020-09-20] MEDS: TAMSULOSIN 0.4 MG CAP.ER.24H. PO SCH (08:37)
[2020-09-20] MEDS: POTASSIUM CHLORIDE 20 MEQ TABLET.ER. PO SCH ×2 (08:37→21:18)
[2020-09-20] MEDS: DUTASTERIDE 0.5 MG CAPSULE PO SCH (08:38)
[2020-09-20] MEDS: MAGNESIUM HYDROXIDE 2,400 MG/30 ML ORAL.SUSP. PO SCH (08:43)
[2020-09-20] MEDS: LISINOPRIL 10 MG TABLET PO SCH (09:00)
--- NOTE | 2020-09-20 10:32 | RAD ---
EXAM: Left hip, 2 views. HISTORY: Fall. Pain. COMPARISON: 03/12/2018. FINDINGS: 2 views of the left hip are obtained. There is no acute fracture, dislocation or subluxatio n. There is marginal acetabular and femoral head spurring. There is calcification of the acetabular l abrum. IMPRESSION: Mild left hip osteoarthritis. No acute osseous finding. Electronically signed by: Sofia Gray MD (09/20/2020 10:29 AM) [id number]
[2020-09-20 11:50] VITALS: BP 136/76
--- NOTE | 2020-09-20 13:43 | NUR ---
pt was to be discharged but became nauseous when up and around, Dr Dawson went in and spoke to pt and decided to keep pt overnight.
[2020-09-20 15:32] VITALS: BP 130/63
[2020-09-20 18:50] VITALS: BP 135/66
[2020-09-20] MEDS ORDERED: INSULIN GLARGINE SYRINGE. SQ SCH (21:00)
[2020-09-20] MEDS: ATORVASTATIN CALCIUM 20 MG TABLET PO SCH (21:18)
--- NOTE | 2020-09-20 21:53 | PN ---
DATE: 09/20/2020 ATTENDING PHYSICIAN: Dr. Allen. SUBJECTIVE: Multiple issues including nausea and left leg pain. He is fairly alert. He became nauseated when he got up to walk around. I did order plain films of the hip. He had a CT of the pelvis yesterday. OBJECTIVE FINDINGS: VITAL SIGNS: Blood pressure was 130 systolic. However, sugars were low at 61 and 80. He had 30 units of Lantus last night. Plain films of the left hip showed no acute fracture, degenerative arthritis. HEENT: His pupils are reactive. Sclerae is nonicteric. Oropharynx clear. NECK: Supple. LUNGS: Clear. CARDIOVASCULAR: Regular heart tones. ABDOMEN: Soft. No guarding. EXTREMITIES: Showed localized point tenderness in the left hip. There are no neurologic deficits. SKIN: Warm and dry. ASSESSMENT: 1. An 79-year-old gentleman with gastroenteritis, resolving. 2. Type 2 diabetes mellitus with some hypoglycemia this morning. 3. Degenerative arthritis of the hip. 4. Frequent falls. No acute fractures identified. 5. Previous history of a right total hip arthroplasty. 6. Type 2 diabetes mellitus. 7. Chronic pancreatitis. 8. History of coronary artery disease. PLAN: 1. Decrease Lantus at night. 2. Ultram as needed for pain. 3. Advance diet as tolerated. 4. Tentative discharge for tomorrow morning. THERESA ESTRADA: CHAUNCEY/emma TID: [id number]
[2020-09-21 06:13] VITALS: BP 120/72
[2020-09-21] MEDS: MIDODRINE 5 MG TABLET PO SCH (07:00)
[2020-09-21] MEDS: INSULIN LISPRO 300 UNITS/3 ML VIAL. SQ SCH (07:33)
[2020-09-21] MEDS: LISINOPRIL 10 MG TABLET PO SCH (07:35)
[2020-09-21] MEDS: ASPIRIN CHEWABLE 81 MG TABLET. PO SCH (08:30)
[2020-09-21] MEDS: MAGNESIUM HYDROXIDE 2,400 MG/30 ML ORAL.SUSP. PO SCH (08:30)
[2020-09-21] MEDS: PANTOPRAZOLE 40 MG TABLET. PO SCH (08:30)
[2020-09-21] MEDS: DUTASTERIDE 0.5 MG CAPSULE PO SCH (08:30)
[2020-09-21] MEDS: POTASSIUM CHLORIDE 20 MEQ TABLET.ER. PO SCH (08:30)
[2020-09-21] MEDS: TAMSULOSIN 0.4 MG CAP.ER.24H. PO SCH (08:30)
[2020-09-21] MEDS: LIPASE/PROTEAS/AMYLAS 10/32/42 CAPSULE.DR. PO SCH (08:30)
[2020-09-21] MEDS: CLOPIDOGREL BISULFATE 75 MG TABLET PO SCH (08:30)
[2020-09-21] MEDS: SENNOSIDES/DOCUSATE 8.6/50MG TABLET. PO SCH (08:30)
[2020-09-21] MEDS: OMEGA-3 FATTY ACIDS/FISH OIL 1,000 MG CAPSULE. PO SCH (08:30)
[2020-09-21] MEDS: MULTIVITAMIN with MINERAL TABLET. PO SCH (08:30)
--- NOTE | 2020-09-21 09:19 | DS ---
DATE OF DISCHARGE: 09/21/2020 ATTENDING PHYSICIAN: Dr. Allen/Dr. Dawson. FINAL DISCHARGE DIAGNOSES: 1. An 79-year-old gentleman with acute gastroenteritis, resolving. 2. Type 2 diabetes mellitus. 3. Severe degenerative arthritis of the hip, fractures ruled out. 4. Frequent falls. 5. Previous right total hip arthroplasty. 6. Chronic pancreatitis. 7. History of coronary artery disease. HISTORY AND PHYSICAL: The patient is an 79-year-old gentleman admitted through the ED with vague symptoms, somewhat hard to sort out. He has had nausea, vomiting related to a combination of gastroenteritis and chronic pancreatitis, although his amylase and lipase levels were normal. He was admitted for further treatment and evaluation. He also had chronic back pain with associated diabetes. PHYSICAL EXAMINATION: Please see the dictated note. PERTINENT LABORATORY AND X-RAY STUDIES: On admission, his hemoglobin was 12.9 g/dL, white count 8400. Chemistry panel unremarkable. Blood sugars were fairly well controlled, sugars ranging from 80s-150. X-rays of the hip showed no acute fractures, degenerative arthritis of the joints. Abdominal and pelvis CT showed chronic pancreatitis, no obstruction. Acute abdomen series showed nonobstructive gas pattern. Moderate colonic stool ____, some atelectasis. COURSE IN THE HOSPITAL: The patient was admitted. He was treated accordingly IV hydration. Diet was advanced. Sugars were monitored and controlled. He did fairly well. Nausea subsided. His main complaint at this time is pain management. Therefore, on the 4th hospital day, vital signs are stable. I felt it was stable for him to go home. I wrote a script for Ultram 100 mg p.o. every 8 hours p.r.n. pain. In addition, he should continue his alfuzosin 10 mg daily, aspirin, Lipitor, Plavix 75 mg daily, Avodart regular and Lantus insulin, Creon for digestion, Reglan, midodrine, multivitamin, pioglitazone, MiraLax, senna, and the tramadol as prescribed. For now, we held his oxycodone, Tylenol and potassium supplementation. I suggest that he follow up with Dr. Guzmán as scheduled. The patient was then discharged from our hospital in stable condition with explicit written and followup care. Total discharge time spent 39 minutes. CHAUNCEY/ANKIT DR: CHAUNCEY/emma TID: [id number] CC: DENYS GUZMÁN MD
[2020-09-21] MEDS ORDERED: ONDA4TAB7 PO (09:55)
--- NOTE | 2020-09-21 10:31 | NUR ---
pt discharged instructions reviewed with pt and . all questions answered. piv was discontinued earlier. discharge instructions, education materials, rxs and belongings sent with pt.
== END 2020-09-21 10:38 | disposition home or self-care (01) | DRG 392 ==
LOC: ER 22:44 → 1 SOUTH 09-19 04:54
PROVIDERS: ADMIT Internal Medicine; ATTEND Internal Medicine
DX: A08.39 Other viral enteritis (principal); K86.1 Other chronic pancreatitis; I25.810 Atherosclerosis of coronary artery bypass graft(s) without angina pectoris; J98.11 Atelectasis; E03.9 Hypothyroidism, unspecified; E11.9 Type 2 diabetes mellitus without complications; E78.00 Pure hypercholesterolemia, unspecified; E78.5 Hyperlipidemia, unspecified; E86.0 Dehydration; E87.6 Hypokalemia; G89.29 Other chronic pain; H90.5 Unspecified sensorineural hearing loss; I11.0 Hypertensive heart disease with heart failure; I25.10 Atherosclerotic heart disease of native coronary artery without angina pectoris; I48.91 Unspecified atrial fibrillation; I50.9 Heart failure, unspecified; K59.00 Constipation, unspecified; M16.10 Unilateral primary osteoarthritis, unspecified hip; N28.1 Cyst of kidney, acquired; N40.0 Benign prostatic hyperplasia without lower urinary tract symptoms; R29.6 Repeated falls; Z79.02 Long term (current) use of antithrombotics/antiplatelets; Z80.9 Family history of malignant neoplasm, unspecified; Z96.641 Presence of right artificial hip joint; K21.9 Gastro-esophageal reflux disease without esophagitis; I25.2 Old myocardial infarction; K59.09 Other constipation; M19.90 Unspecified osteoarthritis, unspecified site
CPT/HCPCS: 36415; 73502; 74022; 74177; 80048; 80053; 80076; 80307; 81001; 82150; 82550; 82947; 83690; 84484; 85025; 85027; 85610; 85730; 93005; 94640; 96361; 96372; 96374; 96375; 96376; J0780; J1200; J1815; J1956; J2270; J2405; J3490; J7120; Q9966; Q9967; 99285-25

== ENCOUNTER → 2020-11-09 | Outpatient (CLI) | payer MEDICARE, BC ==
[~2020-11-09] MED LIST changes: +DUTA0.5C PO; +INSU100I32 SQ; +ONDA4TAB7 PO
--- NOTE | 2020-11-09 10:53 | RAD ---
Exam: US DPLX VENOUS EXTREMITY LOWER LT Indication: LEFT CALF PAIN S/P FALL, ELEVATED D-DIMER Technique: Color-flow and pulsed wave duplex ultrasound with compression of venous structures of the left lower extremity. Comparison: 04/03/2018. Findings: Partially occlusive thrombus in the peroneal vein. Duplex ultrasound with compression of the deep venous structures of the left lower extremity from the common femoral vein through the popliteal vein is negative for DVT. The posterior tibial vein was se gmentally visualized and patent where seen. Impression: Partially occlusive thrombus in the left peroneal vein, which could be acute or chronic. It should be noted that there was no evidence of DVT on exam of 04/03/2018. Electronically signed by: Luis Carlos Treadwell MD (11/09/2020 10:51 AM) [id number]
== END ==
LOC: US 09:49
PROVIDERS: ATTEND Family Medicine
DX: I82.452 Acute embolism and thrombosis of left peroneal vein (principal); R79.89 Other specified abnormal findings of blood chemistry
CPT/HCPCS: 93971

== ENCOUNTER 2020-11-25 20:23 | Emergency (ER) | payer MEDICARE, BC ==
[~2020-11-25] VITALS: Ht 175.3 cm; Wt 70.7 kg
--- NOTE | 2020-11-25 21:08 | PHYS DOC ---
Past History Past Medical History: Anemia, Arthritis, CAD, CHF, Diabetes, GERD, High Cholesterol, Hip Fracture, Hypertension, Pancreatitis, Other Past Surgical History: Angioplasty, Coronary Bypass Surgery, Hip Replacement, Other Smoking: Non-smoker Alcohol Use: None Drug Use: None General Adult EDM: Chief Complaint: DIZZY/LIGHT HEADED HPI: HPI: 79-year-old male presents with episode of dizziness. The patient was sitting on the couch watching the Olympics and doing a crossword when he had sudden onset of dizziness and nausea. He laid down on the couch but the symptoms were persistent. His decided to call an ambulance. The patient does not typically have episodes like this. He was feeling well prior to this episode. His vision has cleared up but he is still nauseated. Patient was recently seen in this hospital with pancreatitis. He is also diabetic but he states that his blood sugar was around 200 when he checked it at home. He denies any fevers, chills, chest pain, shortness of breath. He has been fully vaccinated against COVID-19. Review of Systems: Review of Systems: Constitutional: Denies fever or chills Eyes: Denies change in visual acuity HENT: Denies nasal congestion or sore throat Respiratory: Denies cough or shortness of breath Cardiovascular: Denies chest pain or edema GI: Nausea. Denies abdominal pain, vomiting, bloody stools or diarrhea : Denies dysuria Musculoskeletal: Denies back pain or joint pain Integument: Denies rash Neurologic: Dizziness. Denies headache, focal weakness or sensory changes Endocrine: Denies polyuria or polydipsia Lymphatic: Denies swollen glands Psychiatric: Denies depression or anxiety Current Medications: Current Meds: Current Medications Medications (Trade) Dose Ordered Sig/Rolo Start Time Stop Time Status Last Admin Dose Admin Meclizine HCl (Antivert) 25 mg 1X ONCE 11/25/20 21:30 11/25/20 21:31 Ondansetron HCl (Zofran) 4 mg 1X ONCE 11/25/20 21:30 11/25/20 21:31 Allergies: Allergies: Allergies Coded Allergies Type Severity Reaction Last Updated Verified No Known Drug Allergies 05/10/15 No Physical Exam: PE: Constitutional: Well developed, well nourished, no acute distress, non-toxic appearance. [] HENT: Normocephalic, atraumatic, bilateral external ears normal, oropharynx moist, no oral exudates, nose normal. [] Eyes: PERRLA, EOMI, conjunctiva normal, no discharge. [] Neck: Normal range of motion, no tenderness, supple, no stridor. [] Cardiovascular:Heart rate regular rhythm, no murmur [] Lungs & Thorax: Bilateral breath sounds clear to auscultation [] Abdomen: Bowel sounds normal, soft, no tenderness, no masses, no pulsatile masses. [] Skin: Warm, dry, no erythema, no rash. [] Back: No tenderness, no CVA tenderness. [] Extremities: No tenderness, no cyanosis, no clubbing, ROM intact, no edema. [] Neurologic: Alert and oriented X 3, normal motor function, normal sensory function, no focal deficits noted. [] Psychologic: Affect normal, judgement normal, mood normal. [] Current Patient Data: Vital Signs: Vital Signs Date Time Temp Pulse Resp B/P (MAP) Pulse Ox O2 Delivery O2 Flow Rate FiO2 11/25/20 20:40 97.5 64 20 162/91 (114) 95 Room Air EKG: EKG: Sinus rhythm, rate 63, normal axis, no ST elevation or depression. [] Radiology/Procedures: Radiology/Procedures: [] Impressions: XR CHEST 1V CLINICAL INDICATIONS: Dizzy: COMPARISON: September 18, 2020. Findings: No acute lung infiltrate or pleural effusion or pulmonary edema or lung mass or pneumothorax is seen. The heart size, pulmonary vasculature, mediastinum and both misael are stable. IMPRESSION: No acute radiographic abnormality is seen. Electronically signed by: Radha Badillo MD (11/25/2020 10:03 PM) [id number] DICTATED AND SIGNED BY: RADHA BADILLO MD DATE: 11/25/202201 CC: QASIM HOLLOWAY DO; DENYS THRASHER MD ~MTH0 0 Heart Score: C/O Chest Pain: N/A Risk Factors: Risk Factors: DM, Current or recent (<one month) smoker, HTN, HLP, family history of CAD, obesity. Risk Scores: Score 0 - 3: 2.5% MACE over next 6 weeks - Discharge Home Score 4 - 6: 20.3% MACE over next 6 weeks - Admit for Clinical Observation Score 7 - 10: 72.7% MACE over next 6 weeks - Early Invasive Strategies Course & Med Decision Making: Course & Med Decision Making Pertinent Labs and Imaging studies reviewed. (See chart for details) The patient's labs are significant for anemia which is similar to previous labs in the chart. The patient's EKG is unremarkable. The rest of his work-up is unremarkable. We gave him meclizine and Zofran. He is feeling better. He is stable for discharge at this time. [] Dragon Disclaimer: Dragon Disclaimer: This electronic medical record was generated, in whole or in part, using a voice recognition dictation system. Departure Departure: Impression: Primary Impression: Dizziness Disposition: 01 HOME / SELF CARE / HOMELESS Condition: IMPROVED Referrals: DENYS THRASHER MD (PCP) Patient Instructions: Dizziness, [id number] QASIM HOLLOWAY DO Nov 25, 2020 21:08
[2020-11-25 21:19] LABS: BASO % 1 % (0-3); EOS # 0.3 x10^3/uL (0.0-0.7); EOS % 5 % (0-3); HEMATOCRIT 38.5 % (39.0-53.0); HEMOGLOBIN 12.8 g/dL (13.0-17.5); LYMPH # 1.5 x10^3/uL (1.0-4.8); LYMPH % 26 % (24-48); MEAN CORPUSCULAR HEMOGLOBIN 31 pg (25-35); MEAN CORPUSCULAR HGB CONC 33 g/dL (31-37); MEAN CORPUSCULAR VOLUME 94 fL (79-100); MONO # 0.5 x10^3/uL (0.0-1.1); MONO % 10 % (0-9); NEUT # 3.3 x10^3uL (1.8-7.7); NEUT % 59 % (31-73); PLATELET COUNT 200 x10^3/uL (140-400); RED CELL DISTRIBUTION WIDTH 13.3 % (11.5-14.5); WHITE BLOOD COUNT 5.6 x10^3/uL (4.0-11.0)
--- NOTE | 2020-11-25 21:22 | EKG ---
[address] [address] Test Date: 2020-11-25 Test Time: 21:12:11 Pat Name: OSMANI CROW Department: Room: Gender: M [employer]: : 1940 Requested By: QASIM HOLLOWAY Order Number: [id number] Reading MD: Measurements Intervals [place] Rate: 63 P: 28 NM: 168 QRS: 26 QRSD: 86 T: 46 QT: 396 QTc: 408 Interpretive Statements SINUS RHYTHM NORMAL ECG RI6.02 No previous ECG available for comparison
[2020-11-25 21:26] LABS: CALCIUM 8.3 mg/dL (8.5-10.1); GFR 71.7; POTASSIUM 4.2 mmol/L (3.5-5.1)
[2020-11-25] MEDS ORDERED: MECLIZINE 12.5 MG TABLET. PO ONE (21:30)
[2020-11-25] MEDS ORDERED: ONDANSETRON PF 4 MG/2 ML VIAL. IVP ONE (21:30)
[2020-11-25 21:31] LABS: ALBUMIN 3.1 g/dL (3.4-5.0); ALBUMIN/GLOBULIN RATIO 1.1 (1.0-1.7); TOTAL BILIRUBIN 0.4 mg/dL (0.2-1.0)
--- NOTE | 2020-11-25 22:05 | RAD ---
XR CHEST 1V CLINICAL INDICATIONS: Dizzy: COMPARISON: September 18, 2020. Findings: No acute lung infiltrate or pleural effusion or pulmonary edema or lung mass or pneumothora x is seen. The heart size, pulmonary vasculature, mediastinum and both misael are stable. IMPRESSION: No acute radiographic abnormality is seen. Electronically signed by: Neville Badillo MD (11/25/2020 10:03 PM) [id number]
[2020-11-25 22:45] VITALS: BP 151/90
[2020-11-25] MEDS ORDERED: ACETAMINOPHEN 500 MG TABLET PO ONE ×2 (22:45→23:00)
[2020-11-25 22:52] LABS: BACTERIA,URINE 0 /HPF (0-FEW); BILIRUBIN,URINE NEG (NEG); CLARITY,URINE CLEAR; COLOR,URINE YELLOW; GLUCOSE,URINE 100 mg/dL (NEG); NITRITE,URINE NEG (NEG); RBC,URINE 0 /HPF (0-2); SQUAMOUS EPITHELIAL CELL,UR OCC /LPF; UROBILINOGEN,URINE 0.2 mg/dL (0.2 mg/dL); WBC,URINE RARE /HPF (0-4)
== END 2020-11-25 23:05 | disposition home or self-care (01) ==
LOC: ER 20:23
DX: R42 Dizziness and giddiness (principal); R11.0 Nausea; I25.10 Atherosclerotic heart disease of native coronary artery without angina pectoris; I11.0 Hypertensive heart disease with heart failure; I50.9 Heart failure, unspecified; I25.810 Atherosclerosis of coronary artery bypass graft(s) without angina pectoris; K21.9 Gastro-esophageal reflux disease without esophagitis; E78.00 Pure hypercholesterolemia, unspecified; M19.90 Unspecified osteoarthritis, unspecified site; Z86.2 Personal history of diseases of the blood and blood-forming organs and certain disorders involving the immune mechanism; Z98.61 Coronary angioplasty status
CPT/HCPCS: 36415; 71045; 80053; 81001; 84484; 85025; 93005; 96374; 99285; J2405

== ENCOUNTER → 2020-12-08 | Outpatient (CLI) | payer MEDICARE, BC ==
[2020-11-25 22:45] VITALS: BP 151/90
--- NOTE | 2020-12-08 16:27 | RAD ---
MR#: [id number] Date of Study: 12/08/2020 Ordering Physician: KACY MANCILLA, Referring Physician: KACY MANCILLA, Tech: Dominga Rodriguez RVT, [facility] APPROVED REPORT Patient Location : OUT-PATIENT Indications Lower Extremity Edema : Varicose Veins Limited grayscale images of the bilateral saphenofemoral junctions are grossly unremarkable. The right great saphenous vein measures approximately 5 mm and has no evidence of reflux. The left great saphenous vein is not well visualized in the proximal segment. Distal to that there a re multiple varicosities seen in the mid thigh but no significant clear evidence of reflux is noted i n the left leg and the greater saphenous vein. Bilateral lesser saphenous veins did not show any evidence of reflux. Of note there is a left-sided Potts's cyst measuring approximately 4.4 x 2.5 x 1.3 cm. Of note there is a left-sided isolated groin lymph node measuring approximately 1.9 x 1.7 x 0.7 cm li wilbert reactive in nature but correlate with clinical findings and any history of malignancy. Past History Vein Stripping : Diabetes Medications Aspirin Greater Saphenous Veins (GSV) Significant venous relux noted in the RIGHT GSV at the following levels : Superficial Femoral Junctio n Significant venous relux noted in the LEFT GSV at the following levels : Superficial Femoral Junction Critical Notification Critical Value: No <Conclusion> 1. Negative for reflux in the right greater and lesser saphenous veins 2. The left great saphenous vein appears to be previously stripped in the proximal segment. The mid and distal segment of the vein did not reveal any evidence of reflux. Multiple varicosities noted s uperficially without clear evidence of reflux 3. Incidental note is made of a left-sided Potts's cyst as described above 4. Incidental note is made of a left-sided groin lymph node likely reactive in nature but correlate with any history of malignancy or clinical examination. Signed by : Thong Gray, Electronically Approved : 12/08/2020 16:26:40
== END ==
LOC: US 12:34
PROVIDERS: ATTEND Internal Medicine Cardiovascular Disease
DX: I83.892 Varicose veins of left lower extremity with other complications (principal); M71.22 Synovial cyst of popliteal space [Baker], left knee; R59.9 Enlarged lymph nodes, unspecified
CPT/HCPCS: 93970